=== PATIENT | male | born 1940 | race Caucasian/White ===

== ENCOUNTER → 2018-05-24 | Outpatient (CLI) | payer MEDICARE ==
--- NOTE | 2018-05-24 20:27 | CONS ---
CONSULTATION DATE OF SERVICE: 05/24/2018. 77-year-old gentleman who has been [facility]uated [facility] for obstructive sleep apnea-hypopnea syndrome. Last time, the patient was seen by me about 3-1/2 years ago. He continued to use his CPAP equipment every night for the whole night, but according to his presently he sometimes snores with CPAP. He has episodes of sleep talking. He wakes up on CPAP 2 times at night with dry mouth, heartburn and nocturia. Usually his sleep schedule from 11:30 p.m. until 8 or 8:30 a.m. Usually no problems with falling asleep. No TV in bedroom. On the morning patient wakes up tired, has difficulties to pay attention, falling asleep during the day, has problems with memory, anxiety, sexual dysfunction. [place] Sleepiness Scale although is only 1. PAST MEDICAL HISTORY: Positive for asthma, allergy, acid reflux, hypertension, tremor, hyperlipidemia. PAST SURGICAL HISTORY: He had hernia repair bilaterally, surgery for hydrocele. MEDICATIONS: Alprazolam, carvedilol, Primidone, pravastatin, amlodipine, aspirin, Asmanex, Combivent, famotidine, Loratadine, vitamin D3 and Benefiber. SOCIAL HISTORY: Positive for smoking many years ago. Quit 38 years ago. Alcohol consumption none. FAMILY HISTORY: Hypertension, arthritis, asthma, sinus headache, cancer, pneumoniae, sleep apnea, lung problems, acid reflux, diabetes. REVIEW OF SYSTEMS: Snoring and awakenings from sleep on CPAP machine, feeling tired and sleepiness after awakenings in the morning. PHYSICAL EXAM: 77-year-old gentleman without distress. BP 148/75, HR 72, RR 16, height 5 feet 9 inches, weight 216.2, body mass index 31.4, temperature 97.6, oxygen saturation on room air 96%. Oropharynx: Extremely low position of soft palate. Wide neck 16 inches in circumference. ABDOMEN: Slightly obese. Neck Supple, no JVD. Thyroid is not palpable. LUNGS Clear to percussion and to auscultation. Good air exchange. No wheezing or rhonchi. HEART S1, S2 regular. No murmurs, gallops, or rubs. ABDOMEN: Obese. Soft and nontender. Bowel sounds are present. No organomegaly appreciated. EXTREMITIES: 1+ bilateral ankle edema. TRAINING PROGRAM ASSISTANT Awake, alert, and oriented X3. Cranial nerves 2 to 7 intact. There is no fasciculation or atrophy. noted. No focal deficits observed. I checked the patient's CPAP unit. CPAP pressure is 8 cm of water. Usage is 8 hours per night every night. IMPRESSION: 1. Obstructive sleep apnea-hypopnea syndrome for many years. The patient demonstrated 100% compliance with treatment, but has episodes of snoring during the sleep and awakenings from sleep while on CPAP. 2. Obesity, BMI 31.4. 3. Hypertension. 4. She has mild swelling, 1+ swelling of the legs. 5. Asthma. 6. Allergy. 7. Essential tremor. 8. Hyperlipidemia. PLAN: 1. We will repeat CPAP titration for reevaluation of effective CPAP pressure at the present time. 2. Watching and losing weight. 3. Sleep hygiene with regular time in bed for at least 8 hours. 4. No driving if feeling any sleepiness. Thank you very much for allowing me to participate in management of your patient. Sincerely, Jae Willams MD, PhD, FAASM Diplomat of [employer] Scrub Technician of [facility] [place] MMODL / IJN: [id number] /
== END ==
LOC: SLEEP 15:09
PROVIDERS: ATTEND Internal Medicine
DX: G47.33 Obstructive sleep apnea (adult) (pediatric) (principal); E66.9 Obesity, unspecified; I10 Essential (primary) hypertension; J45.909 Unspecified asthma, uncomplicated; T78.40XA Allergy, unspecified, initial encounter; G25.0 Essential tremor; E78.5 Hyperlipidemia, unspecified; Z99.89 Dependence on other enabling machines and devices; Z68.31 Body mass index [BMI] 31.0-31.9, adult; Z87.891 Personal history of nicotine dependence; Z79.899 Other long term (current) drug therapy; Z79.82 Long term (current) use of aspirin
CPT/HCPCS: 99211

== ENCOUNTER → 2018-08-10 | Outpatient (CLI) | payer MEDICARE ==
[2018-08-10 23:49] LABS: Albumin 4.3 g/dL (3.80-4.90); Albumin/Globulin Ratio 1.95 (1.60-3.17); Globulin 2.2 g/dL (1.6-3.3); Potassium 4.6 mmol/L (3.5-5.5); Total Bilirubin 0.6 mg/dL (0.2-1.2); Total Protein 6.5 g/dL (6.2-8.2)
== END | disposition home or self-care (01) ==
LOC: LABWHC1 17:10
PROVIDERS: ATTEND Nurse Practitioner Adult Health
DX: I10 Essential (primary) hypertension (principal)
CPT/HCPCS: 36415; 80053; 83880

== ENCOUNTER → 2018-08-15 | Outpatient (CLI) | payer MEDICARE ==
--- NOTE | 2018-08-15 16:10 | PN ---
PROGRESS NOTE DATE OF SERVICE: 08/15/2018 This patient is a 77-year-old gentleman who has been followed in [facility] for treatment of obstructive sleep apnea-hypopnea syndrome. Recently patient received his CPAP unit, and today is his first visit with this unit. Patient is able to use equipment every night for the whole night without any problems. [place] Sleepiness Scale today is 0. I checked his CPAP unit. Range of pressure is 7 to 9; 95th percentile of the pressure is 8.3. Usage is 100% of nights for more than 4 hours. Average usage is 8.1 hours. Leak is 20 L/minute, which is borderline with a full-face mask. Apnea-hypopnea index is only 0.3, which is absolutely perfect. MEDICATIONS: 1. Alprazolam. 2. Carvedilol. 3. Primidone. 4. Pravastatin. 5. Amlodipine. 6. Aspirin. 7. Asmanex. 8. Combivent. 9. Famotidine. 10.Loratadine. 11.Vitamin D. PHYSICAL EXAMINATION: GENERAL: A pleasant patient in no distress. VITAL SIGNS: BP 143/71, HR 80, RR 18, weight 216.6, temperature 98.4. HEENT: PERRLA, EOMI. Evaluation of oropharynx showed tongue protrudes midline. Extremely low position of soft palate. Mallampati IV. NECK: Supple. No JVD. Thyroid is not palpable. LUNGS: Clear to percussion and to auscultation. Good air exchange. No wheezing or rhonchi. HEART: S1, S2 regular. No murmurs, gallops or rubs. ABDOMEN: Soft and nontender. Bowel sounds are present. No organomegaly. EXTREMITIES: No clubbing or cyanosis. CARROTER: Awake, alert, and oriented X3. Cranial nerves 2 to 7 intact. There is no fasciculation or atrophy. noted. No focal deficits observed. IMPRESSION: 1. Obstructive sleep apnea-hypopnea syndrome. Patient demonstrated 100% compliance with treatment, benefitting from treatment. 2. Hypertension. 3. Asthma. 4. Allergies. 5. History of essential tremor. 6. Hyperlipidemia. 7. Mild obesity. PLAN: 1. Patient will continue to use CPAP equipment every night for the whole night. 2. Watching weight. 3. Sleep hygiene with regular time in bed for at least 8 hours. 4. No driving if feeling any sleepiness. 5. We will maintain all necessary CPAP prescriptions for mask, tube, filters. 6. Follow-up visit in one year, or earlier if patient has any problems. Thank you very much for allowing me to participate in the management of your patient. Sincerely, Jae Willams MD, PhD, FAASM Diplomat of [employer] [employer] [employer] Business Operations Manager of [facility] [place] MMODL / IJN: [id number] /
== END | disposition home or self-care (01) ==
LOC: SLEEP 14:32
PROVIDERS: ATTEND Internal Medicine
DX: G47.33 Obstructive sleep apnea (adult) (pediatric) (principal); G25.0 Essential tremor; I10 Essential (primary) hypertension; J45.909 Unspecified asthma, uncomplicated; E78.5 Hyperlipidemia, unspecified; E66.9 Obesity, unspecified; T78.40XA Allergy, unspecified, initial encounter; Z79.52 Long term (current) use of systemic steroids; Z79.82 Long term (current) use of aspirin; Z79.899 Other long term (current) drug therapy; Z79.51 Long term (current) use of inhaled steroids; Z99.89 Dependence on other enabling machines and devices

== ENCOUNTER → 2018-09-06 | Outpatient (CLI) | payer MEDICARE ==
--- NOTE | 2018-09-06 14:03 | CT ---
EXAMINATION TYPE: CT chest wo con DATE OF EXAM: 09/06/2018 COMPARISON: Most recent chest x-ray August 17, 2011 HISTORY: multiple lung nodules CT DLP: 805 mGycm. Automated Exposure Control for Dose Reduction was Utilized. TECHNIQUE: CT scan of the thorax is performed without IV contrast. FINDINGS: LUNGS: There is roughly 8 mm focus of groundglass reticulation or opacity lateral right upper lobe ax ial image 16 for reference . A few tiny nodules are identified in the left lower lobe, for reference is 2 to 3 mm nodule axial image 35. There is bibasilar linear atelectasis and/or scarring just above the diaphragms noted. No suspicious greater than 4 mm parenchymal nodules or masses are present. No p leural effusion or pneumothorax is seen. Elevated left hemidiaphragm is redemonstrated. Tracheobronch ial tree is patent. MEDIASTINUM: Lack of IV contrast is noted to limit evaluation for mediastinal and especially hilar ad enopathy. There are no definitive greater than 1 cm hilar or mediastinal lymph nodes. No cardiomega ly or pericardial effusion is seen. Main pulmonary artery is dilated at 3.1 cm on axial image 25. The re is moderate three-vessel coronary artery calcification is seen which is noted marker of underlying coronary artery disease. Somewhat small thyroid gland is noted. OTHER: There is moderate multilevel spurring in the thoracic spine. There is mild haziness in the left mid abdominal mesentery axial image 67 without suspicious adenopat hy. IMPRESSION: 1. No suspicious greater than 4 mm pulmonary nodules or masses. A 8 mm focus of groundglass reticulat ion opacity lateral right upper lobe favors postinflammatory scar. Consider CT follow-up in 6 months time to reassess. No suspicious nodularity is present. 2. Mild left mid abdominal haziness, possible huseyin mesentery. Dedicated abdominal pelvic CT can be p erformed to further evaluate entire abdomen and pelvis.
== END ==
LOC: RADCTMAIN 13:26
PROVIDERS: ATTEND Nurse Practitioner Adult Health
DX: R91.8 Other nonspecific abnormal finding of lung field (principal)
CPT/HCPCS: 71250

== ENCOUNTER → 2019-03-11 | Outpatient (CLI) | payer MEDICARE ==
--- NOTE | 2019-03-11 12:28 | CT ---
EXAMINATION TYPE: CT chest wo con DATE OF EXAM: 03/11/2019 COMPARISON: Chest CT September 06, 2018 HISTORY: Multiple lung nodules CT DLP: 470 mGycm. Automated Exposure Control for Dose Reduction was Utilized. TECHNIQUE: CT scan of the thorax is performed without IV contrast. FINDINGS: LUNGS: Stable 8 mm focus of groundglass opacity lateral right upper lobe axial image 16. Some scatter ed small nodules in the left lower lobe are redemonstrated, for reference stable 2 to 3 mm nodule lef t lower lobe axial image 32. Persistent elevated left hemidiaphragm. No new suspicious greater than 4 mm parenchymal nodules or masses. Persistent mild scarring anteriorly right lung base near diaphragm . No pleural effusion or pneumothorax. MEDIASTINUM: Lack of IV contrast is noted to limit evaluation for mediastinal and especially hilar ad enopathy. There are no definitive greater than 1 cm hilar or mediastinal lymph nodes. No cardiomega ly or pericardial effusion is seen. Moderate to severe three-vessel coronary calcification. Small thy roid gland redemonstrated. OTHER: Some cortical thinning in both kidneys. Moderate multilevel anterior spurring in the mid to lo wer thoracic spine. Slightly less prominent minimal haziness central abdominal mesentery axial image 68. IMPRESSION: Overall stable findings, no new or enlarging nodularity is identified.
== END ==
LOC: RADCTMAIN 11:17
PROVIDERS: ATTEND Nurse Practitioner Adult Health
DX: R91.8 Other nonspecific abnormal finding of lung field (principal)
CPT/HCPCS: 71250

== ENCOUNTER 2019-12-31 12:27 | Emergency (ER) | payer MEDICARE ==
[2019-12-31 12:41] VITALS: RESP 18; TEMP 98.1
[2019-12-31] MEDS ORDERED: LIDOCAINE 1%-EPI 1:100,000 20 ML VIAL SQ STA (13:10)
--- NOTE | 2019-12-31 13:12 | ED ---
General Adult HPI - General Chief complaint: Fall Stated complaint: Fall, head lac Time Seen by Provider: 12/31/19 13:04 Source: patient Mode of arrival: wheelchair Limitations: no limitations - History of Present Illness Initial comments: Dictation was produced using [employer] dictation software. please excuse any grammatical, word or spelling errors. This patient was cared for during a federal and state declared state of emergency secondary to Covid 19 Chief Complaint: 79-year-old male presents after fall and scalp laceration.. History of Present Illness: His 79-year-old male he was at home when he went to stand up. Patient states he lost his balance and started falling backwards. Patient states he struck his left eyebrow on the corner of a chair. Patient had some bleeding. No loss of consciousness. Patient states it happened so fast he hasn't required remember exactly what happened. He has no other pain complaints. Patient put a Band-Aid over the laceration over his left eye. Patient denies any palpitations prior to the fall. He was feeling like his self at his usual baseline of just before the fall. Patient denies any medical problems. The ROS documented in this emergency department record has been reviewed and confirmed by me. Those systems with pertinent positive or negative responses have been documented in the HPI. All other systems are other negative and/or noncontributory. PHYSICAL EXAM: General Impression: Alert and oriented x3, not in acute distress HEENT: 2 cm laceration just above the left medial eyebrow, no active bleeding, extra-ocular movements intact, pupils equal and reactive to light bilaterally, mucous membranes moist. Cardiovascular: Heart regular rate and rhythm Chest: Able to complete full sentences, no retractions, no tachypnea Abdomen: abdomen soft, non-tender, non-distended, no organomegaly Musculoskeletal: Pulses present and equal in all extremities, no peripheral edema Motor: no focal deficits noted Neurological: CN II-XII grossly intact, no focal motor or sensory deficits noted Skin: Intact with no visualized rashes Psych: Normal affect and mood ED course: 79 yo male presents with forehead laceration. It is unclear patient experienced a mechanical fall versus syncopal fall. Vital signs upon arrival are within acceptable limits. Laboratory evaluation obtained. CBC, coag panel, metabolic panel is unremarkable. Lacerations were repaired at bedside. Computed tomography scan of the head and C-spine shows no intracranial or cervical spine injuries. Orthostatic vital signs are unremarkable. Patient feels well. He is an Caleb without complications. Patient given discharge instructions. He still 5 days to have suture removal. Patient told that if he has another episode of syncope today to return to the emergency department. EKG interpretation: Ventricular rate 72, normal sinus rhythm, right bundle branch block,. 180, QRS 146, QTC 468. No CA prolongation, no QTC prolongation, no ST or T-wave changes noted. No EKG for comparison. Overall, this EKG is unremarkable - Related Data Allergies Allergy/AdvReac Type Severity Reaction Status Date / Time No Known Allergies Allergy Verified 12/31/19 12:34 Review of Systems ROS Statement: Those systems with pertinent positive or pertinent negative responses have been documented in the HPI. ROS Other: All systems not noted in ROS Statement are negative. Past Medical History Past Medical History: No Reported History History of Any Multi-Drug Resistant Organisms: None Reported Past Surgical History: No Surgical Hx Reported Past Psychological History: No Psychological Hx Reported Smoking Status: Never smoker Past Alcohol Use History: None Reported Past Drug Use History: None Reported General Exam Limitations: no limitations Course Vital Signs 12/31/19 12/31/19 12:35 13:57 Temperature 98.1 F Pulse Rate 71 Pulse Rate [ 71 Sitting] Pulse Rate [ 74 Standing] Pulse Rate [ 74 Supine] Respiratory 18 Rate Blood Pressure 147/74 Blood Pressure 148/78 [Sitting] Blood Pressure 123/67 [Standing] Blood Pressure 153/74 [Supine] O2 Sat by Pulse 95 Oximetry Procedures - Laceration Laceration #1 Consent Obtained: verbal consent Indication: laceration Site: scalp Description: linear Depth: simple, single layer Anesthetic Used: lidocaine 1%, with epi Anesthesia Technique: local infiltration Pre-repair: wound explored Type of Sutures: nylon Size of Sutures: 6-0 Technique: simple, interrupted Patient Tolerated Procedure: well Medical Decision Making - Lab Data Result diagrams: 12/31/19 13:21 12/31/19 13:21 Lab Results 12/31/19 12/31/19 12/31/19 Range/Units 13:21 13:21 13:21 WBC 4.3 (3.8-10.6) k/uL RBC 4.06 L (4.30-5.90) m/uL Hgb 12.5 L (13.0-17.5) gm/dL Hct 38.1 L (39.0-53.0) % MCV 94.0 (80.0-100.0) fL MCH 30.9 (25.0-35.0) pg MCHC 32.8 (31.0-37.0) g/dL RDW 13.2 (11.5-15.5) % Plt Count 235 (150-450) k/uL Neutrophils % 65 % Lymphocytes % 24 % Monocytes % 8 % Eosinophils % 1 % Basophils % 1 % Neutrophils # 2.8 (1.3-7.7) k/uL Lymphocytes # 1.0 (1.0-4.8) k/uL Monocytes # 0.3 (0-1.0) k/uL Eosinophils # 0.0 (0-0.7) k/uL Basophils # 0.0 (0-0.2) k/uL PT 10.2 (9.0-12.0) sec INR 1.0 (<1.2) APTT 22.9 (22.0-30.0) sec Sodium 137 (137-145) mmol/L Potassium 4.0 (3.5-5.1) mmol/L Chloride 100 (98-107) mmol/L Carbon Dioxide 30 (22-30) mmol/L Anion Gap 7 mmol/L BUN 10 (9-20) mg/dL Creatinine 1.13 (0.66-1.25) mg/dL Est GFR (CKD-EPI)AfAm 71 (>60 ml/min/1.73 sqM) Est GFR (CKD-EPI)NonAf 61 (>60 ml/min/1.73 sqM) Glucose 103 H (74-99) mg/dL Calcium 9.0 (8.4-10.2) mg/dL Magnesium 2.2 (1.6-2.3) mg/dL Total Bilirubin 0.9 (0.2-1.3) mg/dL AST 22 (17-59) U/L ALT 19 (4-49) U/L Alkaline Phosphatase 87 (38-126) U/L Total Protein 6.6 (6.3-8.2) g/dL Albumin 4.0 (3.5-5.0) g/dL Disposition Clinical Impression: Scalp laceration Disposition: HOME SELF-CARE Condition: Good Instructions (If sedation given, give patient instructions): Fall Prevention for Older Adults (ED) Additional Instructions: Suture removal in 3-5 days. He can either return to the emergency department or follow-up with her primary care physician Is patient prescribed a controlled substance at d/c from ED?: No Referrals: Ольга Abdi MD [Primary Care Provider] - 1-2 days Time of Disposition: 14:02
[2019-12-31] MEDS ORDERED: DIPH,PERTUS(ACELL)TETVAC-LF 0.5 ML VIAL IM ONE (13:23)
[2019-12-31 13:37] LABS: Basophils % (A) 1 %; Eosinophils % (A) 1 %; HCT 38.1 % (39.0-53.0); HGB 12.5 gm/dL (13.0-17.5); Lymphocytes % (A) 24 %; MCH 30.9 pg (25.0-35.0); MCHC 32.8 g/dL (31.0-37.0); Mean Platelet Volume 8.2; Monocytes # (A) 0.3 k/uL (0-1.0); Monocytes % (A) 8 %; Neutrophils # (A) 2.8 k/uL (1.3-7.7); Neutrophils % (A) 65 %; Platelet Count 235 k/uL (150-450); RBC 4.06 m/uL (4.30-5.90); RDW 13.2 % (11.5-15.5); WBC 4.3 k/uL (3.8-10.6)
[2019-12-31 13:45] LABS: Partial Thromboplastin Time 22.9 sec (22.0-30.0); Prothrombin Time 10.2 sec (9.0-12.0)
--- NOTE | 2019-12-31 13:47 | CT ---
EXAMINATION TYPE: CT brain jeremiah bowles DATE OF EXAM: 12/31/2019 COMPARISON: None HISTORY: 79-year-old male with pain after Fall, struck face just above Lt eye on a chair CT DLP: 1418.5 mGycm Automated exposure control for dose reduction was used. Technique: Examination of the head was done in axial plane without intravenous contrast. Coronal and sagittal reconstructions performed. CT of the cervical spine was obtained in axial plane without intravenous injection of contrast mater ial. Coronal and sagittal reformatted images were obtained from the axial views for evaluation of f ractures, spinal alignment and canal. FINDINGS: Head: There is no evidence of acute intracranial hemorrhage, acute ischemic changes, mass, mass-effect, or extra-axial fluid collection. There is no effacement of cerebral sulci or basal subarachnoid cister ns. There is no hydrocephalus. There is no midline shift. Ribera-white matter distinction is preserv ed. Left paramedian anterior scalp laceration. No underlying calvarial fracture. Rightward nasal septal d eviation. Lobular mucosal thickening floors of the maxillary sinuses. Otherwise, paranasal sinuses an d mastoid air cells appear clear. Orbits and globes appear intact. Mild generalized supratentorial volume loss. Cervical spine: No craniocervical junction abnormality, predental space widening, or prevertebral soft tissue swellin g. Moderate to advanced disc/endplate degenerative change at C5-C7 levels. Disc osteophyte complexes are present. Suspect mild spinal canal stenoses such as at C3-C4 and C5-C6. Multilevel facet and uncovertebral joint arthropathy. Foraminal moderate neural foraminal stenoses pa rticularly at C3-C4 and C5-C6. Preserved alignment of the cervical spine. No acute fracture seen. Sagittal and coronal reformatted images confirm above findings. COMBINED IMPRESSION: 1. Left paramedian anterior scalp laceration. No underlying skull fracture. There is mild generalized atrophy but no acute intracranial abnormality seen. 2. No acute fracture or malalignment of the cervical spine. Moderate spondylotic change.
[2019-12-31 13:49] LABS: Magnesium 2.2 mg/dL (1.6-2.3); Total Bilirubin 0.9 mg/dL (0.2-1.3); Total Protein 6.6 g/dL (6.3-8.2)
[2019-12-31 13:59] VITALS: BP 153/74; PULSE 74
== END 2019-12-31 14:25 | disposition home or self-care (01) ==
LOC: EC 12:27
DX: S01.01XA Laceration without foreign body of scalp, initial encounter (principal); W01.190A Fall on same level from slipping, tripping and stumbling with subsequent striking against furniture, initial encounter; Y92.009 Unspecified place in unspecified non-institutional (private) residence as the place of occurrence of the external cause; Z23 Encounter for immunization
CPT/HCPCS: 12001; 36415; 70450; 72125; 80053; 83735; 85025; 85610; 85730; 90471; 90715; 93005; 99284

== ENCOUNTER 2020-07-15 10:16 | Emergency (ER) | payer MEDICARE ==
[2020-07-15 10:23] VITALS: RESP 18
[2020-07-15 10:32] LABS: Glucose,Whole Blood 112 mg/dL (75-99)
[2020-07-15] MEDS ORDERED: SODIUM CHLORIDE 0.9% 500 ML 500 ML IV ONE (10:36)
[2020-07-15 10:51] LABS: Basophils # (A) 0.1 k/uL (0-0.2); Basophils % (A) 1 %; Eosinophils % (A) 1 %; HCT 35.6 % (39.0-53.0); HGB 12.6 gm/dL (13.0-17.5); Lymphocytes % (A) 21 %; MCH 32.6 pg (25.0-35.0); MCHC 35.4 g/dL (31.0-37.0); MCV 92.3 fL (80.0-100.0); Mean Platelet Volume 8.1; Monocytes # (A) 0.5 k/uL (0-1.0); Monocytes % (A) 10 %; Neutrophils % (A) 65 %; Platelet Count 236 k/uL (150-450); RBC 3.86 m/uL (4.30-5.90); RDW 13.1 % (11.5-15.5); WBC 4.6 k/uL (3.8-10.6)
--- NOTE | 2020-07-15 11:01 | XR ---
EXAMINATION TYPE: XR chest 1V portable DATE OF EXAM: 07/15/2020 COMPARISON: Chest x-ray 08/17/2011 HISTORY: Altered mental status TECHNIQUE: Single frontal view of the chest is obtained. FINDINGS: There is no focal air space opacity, pleural effusion, or pneumothorax seen. The cardiac silhouette size is within normal limits. There are overlying cardiac leads. The osseous structures a re intact. IMPRESSION: No acute process.
[2020-07-15 11:03] LABS: Partial Thromboplastin Time 22.2 sec (22.0-30.0); Prothrombin Time 10.8 sec (9.0-12.0)
[2020-07-15 11:03] LABS: Appearance,Urine Clear (Clear); Bilirubin,Urine Negative (Negative); Blood,Urine Negative (Negative); Color,Urine Light Yellow; Glucose,Urine (UA) Negative (Negative); Ketones,Urine Negative (Negative); Leukocyte Esterase,Urine Negative (Negative); Nitrite,Urine Negative (Negative); PH, Urine 6.5 (5.0-8.0); Protein,Urine Negative (Negative); Specific Gravity,Urine 1.005 (1.001-1.035); Urobilinogen,Urine <2.0 mg/dL (<2.0)
--- NOTE | 2020-07-15 11:06 | ED ---
General Adult HPI - General Chief complaint: Altered Mental Status Stated complaint: AMS Time Seen by Provider: 07/15/20 10:18 Source: patient Mode of arrival: ambulatory Limitations: no limitations - History of Present Illness Initial comments: 79-year-old male without any significant past medical history presents to the emergency department for confusion. Patient reports last night he took an unknown pill which he thought was his blood pressure pill. He then reports he fell to the couch but does not remember falling asleep. Woke up at 2 AM. He feels slightly confused. States this has been ongoing for quite some time. Patient is a and O 2 however does not know the year. Patient denies any specific complaints otherwise. Patient reports he lives at home with his . His is in the hospital at this time.Patient has no other complaints at this time including shortness of breath, chest pain, abdominal pain, nausea or vomiting, headache, or visual changes. - Related Data Home Medications Medication Instructions Recorded Confirmed ALPRAZolam [Xanax] 0.5 mg PO TID PRN 07/15/20 07/15/20 Carvedilol [Coreg] 12.5 mg PO TID 07/15/20 07/15/20 amLODIPine [Norvasc] 5 mg PO DAILY 07/15/20 07/15/20 Allergies Allergy/AdvReac Type Severity Reaction Status Date / Time No Known Allergies Allergy Verified 07/15/20 11:23 Review of Systems ROS Statement: Those systems with pertinent positive or pertinent negative responses have been documented in the HPI. ROS Other: All systems not noted in ROS Statement are negative. Past Medical History Past Medical History: No Reported History History of Any Multi-Drug Resistant Organisms: None Reported Past Surgical History: No Surgical Hx Reported Past Psychological History: No Psychological Hx Reported Smoking Status: Former smoker Past Alcohol Use History: None Reported Past Drug Use History: None Reported General Exam Limitations: no limitations General appearance: alert, in no apparent distress Head exam: Present: atraumatic Eye exam: Present: normal appearance, PERRL, EOMI ENT exam: Present: normal exam, mucous membranes moist Neck exam: Present: normal inspection, full ROM. Absent: tenderness Respiratory exam: Present: normal lung sounds bilaterally. Absent: respiratory distress Cardiovascular Exam: Present: regular rate, normal rhythm, normal heart sounds GI/Abdominal exam: Present: soft, normal bowel sounds. Absent: distended, tenderness, guarding, rebound, rigid Neurological exam: Present: alert. Absent: oriented X3 (Oriented to person and place however year is unknown) Psychiatric exam: Present: normal affect, normal mood Course Vital Signs 07/15/20 07/15/20 10:19 11:23 Temperature 98 F Pulse Rate 71 78 Respiratory 18 18 Rate Blood Pressure 124/82 117/70 O2 Sat by Pulse 98 95 Oximetry EKG Findings - EKG Comments: EKG Findings:: Normal sinus rhythm, right bundle branch block, ventricular rate 69, LA interval 150, qtc 471 Medical Decision Making - Medical Decision Making Vitals are stable. I she is alert and oriented 2, does not know the year. He is well appearing, in no distress. CBC CMP unremarkable. Urinalysis is negative for infection. Chest x-ray negative for infection. Patient does have benzodiazepines in his system and he is prescribed Xanax so this is consistent. However he has barbiturates as well. He is not prescribed barbiturates. It is likely he accidentally took one of his 's pills yesterday because he states he tried to compare the 2 as he was running low and took one of hers. CT brain showed age-related atrophy without acute intracranial process. I spoke with patient's stepdaughter Tammy, she reports she has been chronically confused for quite some time. They're actually scheduled to put him in an assisted living facility tomorrow. She is agreeable to picking him up from the emergency room and taking him home for the evening. They will take him to the assisted living facility tomorrow. Patient is agreeable to this plan as well. - Lab Data Result diagrams: 07/15/20 10:39 07/15/20 10:39 Lab Results 07/15/20 07/15/20 07/15/20 Range/Units 10:30 10:39 10:39 WBC 4.6 (3.8-10.6) k/uL RBC 3.86 L (4.30-5.90) m/uL Hgb 12.6 L (13.0-17.5) gm/dL Hct 35.6 L (39.0-53.0) % MCV 92.3 (80.0-100.0) fL MCH 32.6 (25.0-35.0) pg MCHC 35.4 (31.0-37.0) g/dL RDW 13.1 (11.5-15.5) % Plt Count 236 (150-450) k/uL MPV 8.1 Neutrophils % 65 % Lymphocytes % 21 % Monocytes % 10 % Eosinophils % 1 % Basophils % 1 % Neutrophils # 3.0 (1.3-7.7) k/uL Lymphocytes # 1.0 (1.0-4.8) k/uL Monocytes # 0.5 (0-1.0) k/uL Eosinophils # 0.0 (0-0.7) k/uL Basophils # 0.1 (0-0.2) k/uL PT 10.8 (9.0-12.0) sec INR 1.0 (<1.2) APTT 22.2 (22.0-30.0) sec Sodium (137-145) mmol/L Potassium (3.5-5.1) mmol/L Chloride (98-107) mmol/L Carbon Dioxide (22-30) mmol/L Anion Gap mmol/L BUN (9-20) mg/dL Creatinine (0.66-1.25) mg/dL Est GFR (CKD-EPI)AfAm (>60 ml/min/1.73 sqM) Est GFR (CKD-EPI)NonAf (>60 ml/min/1.73 sqM) Glucose (74-99) mg/dL POC Glucose (mg/dL) 112 H (75-99) mg/dL POC Glu Vice President Client Services Shaye Shaffer Calcium (8.4-10.2) mg/dL Total Bilirubin (0.2-1.3) mg/dL AST (17-59) U/L ALT (4-49) U/L Alkaline Phosphatase (38-126) U/L Troponin I (0.000-0.034) ng/mL Total Protein (6.3-8.2) g/dL Albumin (3.5-5.0) g/dL Urine Color Urine Appearance (Clear) Urine pH (5.0-8.0) Ur Specific [place] (1.001-1.035) Urine Protein (Negative) Urine Glucose (UA) (Negative) Urine Ketones (Negative) Urine Blood (Negative) Urine Nitrite (Negative) Urine Bilirubin (Negative) Urine Urobilinogen (<2.0) mg/dL Ur Leukocyte Esterase (Negative) Urine Opiates Screen (NotDetected) Ur Oxycodone Screen (NotDetected) Urine Methadone Screen (NotDetected) Ur Propoxyphene Screen (NotDetected) Ur Barbiturates Screen (NotDetected) U Tricyclic Antidepress (NotDetected) Ur Phencyclidine Scrn (NotDetected) Ur Amphetamines Screen (NotDetected) U Methamphetamines Scrn (NotDetected) U Benzodiazepines Scrn (NotDetected) Urine Cocaine Screen (NotDetected) U Marijuana (THC) Screen (NotDetected) 07/15/20 07/15/20 07/15/20 Range/Units 10:39 10:39 10:56 WBC (3.8-10.6) k/uL RBC (4.30-5.90) m/uL Hgb (13.0-17.5) gm/dL Hct (39.0-53.0) % MCV (80.0-100.0) fL MCH (25.0-35.0) pg MCHC (31.0-37.0) g/dL RDW (11.5-15.5) % Plt Count (150-450) k/uL MPV Neutrophils % % Lymphocytes % % Monocytes % % Eosinophils % % Basophils % % Neutrophils # (1.3-7.7) k/uL Lymphocytes # (1.0-4.8) k/uL Monocytes # (0-1.0) k/uL Eosinophils # (0-0.7) k/uL Basophils # (0-0.2) k/uL PT (9.0-12.0) sec INR (<1.2) APTT (22.0-30.0) sec Sodium 134 L (137-145) mmol/L Potassium 3.5 (3.5-5.1) mmol/L Chloride 100 (98-107) mmol/L Carbon Dioxide 29 (22-30) mmol/L Anion Gap 5 mmol/L BUN 11 (9-20) mg/dL Creatinine 1.29 H (0.66-1.25) mg/dL Est GFR (CKD-EPI)AfAm 60 (>60 ml/min/1.73 sqM) Est GFR (CKD-EPI)NonAf 52 (>60 ml/min/1.73 sqM) Glucose 109 H (74-99) mg/dL POC Glucose (mg/dL) (75-99) mg/dL POC Glu Vice President Client Services ID Calcium 9.3 (8.4-10.2) mg/dL Total Bilirubin 0.8 (0.2-1.3) mg/dL AST 23 (17-59) U/L ALT 19 (4-49) U/L Alkaline Phosphatase 67 (38-126) U/L Troponin I <0.012 (0.000-0.034) ng/mL Total Protein 6.5 (6.3-8.2) g/dL Albumin 3.6 (3.5-5.0) g/dL Urine Color Light Yellow Urine Appearance Clear (Clear) Urine pH 6.5 (5.0-8.0) Ur Specific [place] 1.005 (1.001-1.035) Urine Protein Negative (Negative) Urine Glucose (UA) Negative (Negative) Urine Ketones Negative (Negative) Urine Blood Negative (Negative) Urine Nitrite Negative (Negative) Urine Bilirubin Negative (Negative) Urine Urobilinogen <2.0 (<2.0) mg/dL Ur Leukocyte Esterase Negative (Negative) Urine Opiates Screen Not Detected (NotDetected) Ur Oxycodone Screen Not Detected (NotDetected) Urine Methadone Screen Not Detected (NotDetected) Ur Propoxyphene Screen Not Detected (NotDetected) Ur Barbiturates Screen Detected H (NotDetected) U Tricyclic Antidepress Not Detected (NotDetected) Ur Phencyclidine Scrn Not Detected (NotDetected) Ur Amphetamines Screen Not Detected (NotDetected) U Methamphetamines Scrn Not Detected (NotDetected) U Benzodiazepines Scrn Detected H (NotDetected) Urine Cocaine Screen Not Detected (NotDetected) U Marijuana (THC) Screen Not Detected (NotDetected) Disposition Clinical Impression: Chronic confusion, Medication administered in error Disposition: HOME SELF-CARE Condition: Good Instructions (If sedation given, give patient instructions): Altered Mental Status (ED) Additional Instructions: Please follow-up with patient's primary care provider in one to 2 days. Return to the emergency room for any worsening symptoms. Is patient prescribed a controlled substance at d/c from ED?: No Referrals: Jose Álvarez MD [Primary Care Provider] - 1-2 days Time of Disposition: 12:51
[2020-07-15 11:08] LABS: Albumin 3.6 g/dL (3.5-5.0); Calcium 9.3 mg/dL (8.4-10.2); Potassium 3.5 mmol/L (3.5-5.1); Total Bilirubin 0.8 mg/dL (0.2-1.3); Total Protein 6.5 g/dL (6.3-8.2)
[2020-07-15 11:17] LABS: Amphetamine Screen,Urine Not Detected (NotDetected); Barbiturate Screen,Urine Detected (NotDetected); Benzodiazepines Screen,Urine Detected (NotDetected); Cocaine Screen,Urine Not Detected (NotDetected); Methadone Screen, Urine Not Detected (NotDetected); Opiate Screen,Urine Not Detected (NotDetected); Phencyclidine Screen,Urine Not Detected (NotDetected); Tricyclic Antidepressant,Urine Not Detected (NotDetected); Urn Cannabinoid Scrn Not Detected (NotDetected)
[2020-07-15 11:18] LABS: Oxycodone Screen, Urine Not Detected (NotDetected)
--- NOTE | 2020-07-15 12:26 | CT ---
EXAMINATION TYPE: CT brain wo con DATE OF EXAM: 07/15/2020 COMPARISON: 12/31/2019 INDICATION: Altered Mental Status DLP: 1143.4 mGycm, Automated exposure control for dose reduction was used. CONTRAST: None CT of the brain is performed utilizing 3 mm thick sections through the posterior fossa and 3 mm thick sections through the remaining calvarium. Study is performed within 24 hours of arrival to the hosp ital. No abnormal hyperdensity is present to suggest an acute intracranial hemorrhage. No mass lesion is evident. No acute infarcts are evident. Ventricles and sulci are prominent for the patient age. Paranasal sinuses and mastoid air cells within the [id number] are clear. IMPRESSIONS: 1. Age-related atrophy. 2. No acute intracranial process.
[2020-07-15 14:06] VITALS: BP 155/81; PULSE 76; TEMP 98.3
== END 2020-07-15 14:07 | disposition home or self-care (01) ==
LOC: EC 10:16
DX: R41.0 Disorientation, unspecified (principal); T42.4X5A Adverse effect of benzodiazepines, initial encounter; G31.1 Senile degeneration of brain, not elsewhere classified; Z87.891 Personal history of nicotine dependence
CPT/HCPCS: 36415; 70450; 71045; 80053; 80306; 81003; 84484; 85025; 85610; 85730; 93005; 96360; 99285

== ENCOUNTER 2021-10-03 09:22 | Observation (INO) | payer MEDICARE ==
[2021-10-03 09:33] LABS: Glucose,Whole Blood 104 mg/dL (75-99)
[2021-10-03] MEDS ORDERED: SODIUM CHLORIDE 0.9% 1,000 ML IV STA (10:10)
[2021-10-03 10:25] LABS: Basophils % (A) 0 %; Eosinophils # (A) 0.2 k/uL (0-0.7); Eosinophils % (A) 2 %; HCT 23.4 % (39.0-53.0); HGB 7.7 gm/dL (13.0-17.5); Lymphocytes # (A) 0.9 k/uL (1.0-4.8); Lymphocytes % (A) 8 %; MCH 31.4 pg (25.0-35.0); MCHC 32.8 g/dL (31.0-37.0); MCV 95.6 fL (80.0-100.0); Mean Platelet Volume 7.8; Monocytes # (A) 0.7 k/uL (0-1.0); Monocytes % (A) 6 %; Neutrophils # (A) 8.8 k/uL (1.3-7.7); Neutrophils % (A) 82 %; Platelet Count 329 k/uL (150-450); RBC 2.45 m/uL (4.30-5.90); RDW 14.5 % (11.5-15.5); WBC 10.7 k/uL (3.8-10.6)
[2021-10-03 10:36] LABS: Albumin 2.5 g/dL (3.5-5.0); Calcium 7.9 mg/dL (8.4-10.2); Magnesium 1.9 mg/dL (1.6-2.3); Potassium 3.8 mmol/L (3.5-5.1); Total Bilirubin 0.5 mg/dL (0.2-1.3); Total Protein 5.3 g/dL (6.3-8.2)
[2021-10-03 10:47] LABS: INR 1.1 (<1.2); Partial Thromboplastin Time 22.3 sec (22.0-30.0); Prothrombin Time 11.4 sec (9.0-12.0)
--- NOTE | 2021-10-03 11:00 | XR ---
EXAMINATION TYPE: XR chest 2V DATE OF EXAM: 10/03/2021 COMPARISON: Chest x-ray September 23, 2021 HISTORY: Syncope and weakness. TECHNIQUE: Frontal and lateral views of the chest are obtained. FINDINGS: Persistent elevated left hemidiaphragm. Persistent wedge-shaped opacification peripheral r ight upper lobe posteriorly. Left lung remains clear. Stable mild cardiomegaly. The osseous structu res are intact. IMPRESSION: Mild cardiomegaly with persistent right upper lung masslike consolidation and/or atelect asis. No new infiltrates seen.
--- NOTE | 2021-10-03 11:02 | CT ---
EXAMINATION TYPE: CT brain wo con DATE OF EXAM: 10/03/2021 HISTORY: Syncope CT DLP: 1072.4 mGycm. Automated Exposure Control for Dose Reduction was Utilized. TECHNIQUE: CT scan of the head is performed without contrast. COMPARISON: CT brain September 23, 2021. FINDINGS: There is no acute intracranial hemorrhage or midline shift identified. There is mild to m oderate diffuse ventricular and sulcal prominence consistent with diffuse cerebral atrophy greatest o annabella the bilateral frontal and temporal lobes redemonstrated. There is mild low-attenuation in the pe riventricular white matter consistent with chronic small vessel ischemic change. The globes are inta ct and the visualized sinuses are clear. IMPRESSION: No acute intracranial hemorrhage or midline shift. There is mild to moderate diffuse ce rebral atrophy and mild chronic small vessel ischemic change redemonstrated. No significant change f rom prior.
[2021-10-03] MEDS ORDERED: NALOXONE 0.4 MG/ML 1 ML VIAL IV PRN (11:36)
--- NOTE | 2021-10-03 12:33 | ED ---
General Adult HPI - General Chief complaint: Syncope Stated complaint: Syncope Time Seen by Provider: 10/03/21 09:58 Source: patient, EMS, RN notes reviewed, old records reviewed Mode of arrival: EMS - History of Present Illness Initial comments: Patient is an 80-year-old male with past medical history remarkable for cancer, recently admitted for blood loss anemia secondary to rectal bleeding presents with Department following a single episode at home. Patient was found in his wheelchair, initially EMS was called for listhesis. However he was unresponsive and syncopized. He quickly recovered when he was laid flat. He currently denies any acute complaints. Denies hitting his head. Denies chest pain, shortness breath, abdominal pain, nausea, vomiting. States he was waiting to use the restroom when he "fell asleep". Denies any worsening GI bleeding. His no other acute complaints at this time. He was seen by surgery as well who completed scoping. They're attempting to get the patient into hospice. - Related Data Home Medications Medication Instructions Recorded Confirmed Carvedilol [Coreg] 12.5 mg PO DAILY@0800 07/15/20 10/03/21 ALPRAZolam [Xanax] 0.25 mg PO BID@0800,2300 09/23/21 10/03/21 Budesonide/Formoterol Fumarate 2 puff INHALATION RT-BID@0830,2030 09/23/21 10/03/21 [Symbicort 160-4.5 Mcg Inhaler] Carvedilol [Coreg] 25 mg PO HS@2200 09/23/21 10/03/21 Famotidine 20 mg PO BID@0830,1600 09/23/21 10/03/21 Primidone [Mysoline] 50 mg PO TID@0800,1400,2200 09/23/21 10/03/21 amLODIPine BESYLATE/BENAZEPRIL 1 cap PO DAILY@1600 09/23/21 10/03/21 [Lotrel 5-10 MG] Allergies Allergy/AdvReac Type Severity Reaction Status Date / Time No Known Allergies Allergy Verified 10/03/21 13:29 Review of Systems ROS Statement: Those systems with pertinent positive or pertinent negative responses have been documented in the HPI. Review of Systems: CONST: Denies fever EYES: Denies blurry vision ENT: Denies nasal congestion C/V: Denies Chest pain RESP: Denies shortness of breath GI: Denies abdominal pain : Denies dysuria SKIN: Denies rash. MSK: Denies joint pain. NEURO: Denies headache ROS Other: All systems not noted in ROS Statement are negative. Past Medical History Past Medical History: Cancer, Hypertension, Syncope Additional Past Medical History / Comment(s): Lung cancer, skin cancer and colon cancer, History of Any Multi-Drug Resistant Organisms: None Reported Past Surgical History: No Surgical Hx Reported Past Psychological History: No Psychological Hx Reported Smoking Status: Former smoker Past Alcohol Use History: None Reported Past Drug Use History: None Reported General Exam - General Exam Comments Initial Comments: General: Appears in no acute distress. HEAD: Normal with no signs of head trauma. EYES: PERRLA, EOMI, conjunctiva normal, no discharge. ENT: Hearing grossly intact, normal oropharynx. RESPIRATORY: Clear breath sounds bilaterally. No wheezes, rales, or rhonchi. C/V: Regular rate and rhythm. S1 and S2 auscultated, no edema, peripheral pulses 2+ and intact throughout ABD: Abd is soft, nontender, nondistended. Patient is covered in dark stool. EXT: Normal range of motion, no obvious deformity SKIN: No rashes or lesions observed on exposed skin. NEURO: Alert and oriented 4. No focal sensory strength deficits. NIH is 0. GCS 15. Course Vital Signs 10/03/21 10/03/21 10/03/21 09:22 10:00 11:41 Temperature 98.0 F Pulse Rate 72 72 72 Respiratory 18 20 16 Rate Blood Pressure 105/51 105/51 113/52 O2 Sat by Pulse 98 97 96 Oximetry Medical Decision Making - Medical Decision Making Based on the patient's presentation and physical exam, I'm concerned for symptomatic anemia, likely secondary to bleeding in his stool. It appears he had a syncopal episode. We will obtain a cardiac workup in addition to basic labs. He will begin fluid bolus. He was in agreement this plan. Chest x-ray revealed no acute cardiopulmonary process. Brain CT revealed no acute intracranial injury or process. There are chronic processes. EKG shows no signs of acute ischemia. Laboratory studies are remarkable for a normocytic anemia with hemoglobin 7.7, previously it was a 8.7. Patient is a mild AK I with an elevated creatinine of 1.34. Troponin is negative. Stool occult blood is positive. Urinalysis still pending. Reevaluation come patient is feeling improved. I did discuss with him that due to the recent drop in hemoglobin 1 unit since prior discharge a few days ago, I would like to admit him for hemoglobin monitoring. He was in agreement this plan. I did speak with the patient's PCP, Dr. Alfonso who accepted the patient. He requested I consult Dr. schaefer of surgery who evaluated the patient previously which I did and spoke with him over the phone. Dr. Arellano is accepted the cons ult. Multiple CBC rechecks will be completed. - Lab Data Result diagrams: 10/03/21 10:13 10/03/21 10:13 Lab Results 10/03/21 10/03/21 10/03/21 Range/Units 09:28 10:13 10:13 WBC 10.7 H (3.8-10.6) k/uL RBC 2.45 L (4.30-5.90) m/uL Hgb 7.7 L (13.0-17.5) gm/dL Hct 23.4 L (39.0-53.0) % MCV 95.6 (80.0-100.0) fL MCH 31.4 (25.0-35.0) pg MCHC 32.8 (31.0-37.0) g/dL RDW 14.5 (11.5-15.5) % Plt Count 329 (150-450) k/uL MPV 7.8 Neutrophils % 82 % Lymphocytes % 8 % Monocytes % 6 % Eosinophils % 2 % Basophils % 0 % Neutrophils # 8.8 H (1.3-7.7) k/uL Lymphocytes # 0.9 L (1.0-4.8) k/uL Monocytes # 0.7 (0-1.0) k/uL Eosinophils # 0.2 (0-0.7) k/uL Basophils # 0.0 (0-0.2) k/uL PT 11.4 (9.0-12.0) sec INR 1.1 (<1.2) APTT 22.3 (22.0-30.0) sec Sodium (137-145) mmol/L Potassium (3.5-5.1) mmol/L Chloride (98-107) mmol/L Carbon Dioxide (22-30) mmol/L Anion Gap mmol/L BUN (9-20) mg/dL Creatinine (0.66-1.25) mg/dL Est GFR (CKD-EPI)AfAm (>60 ml/min/1.73 sqM) Est GFR (CKD-EPI)NonAf (>60 ml/min/1.73 sqM) Glucose (74-99) mg/dL POC Glucose (mg/dL) 104 H (75-99) mg/dL POC Glu Decorator Inspector ID Barbi Smyth Calcium (8.4-10.2) mg/dL Magnesium (1.6-2.3) mg/dL Total Bilirubin (0.2-1.3) mg/dL AST (17-59) U/L ALT (4-49) U/L Alkaline Phosphatase (38-126) U/L Troponin I (0.000-0.034) ng/mL Total Protein (6.3-8.2) g/dL Albumin (3.5-5.0) g/dL Stool Occult Blood (Negative) 10/03/21 10/03/21 10/03/21 Range/Units 10:13 10:13 10:26 WBC (3.8-10.6) k/uL RBC (4.30-5.90) m/uL Hgb (13.0-17.5) gm/dL Hct (39.0-53.0) % MCV (80.0-100.0) fL MCH (25.0-35.0) pg MCHC (31.0-37.0) g/dL RDW (11.5-15.5) % Plt Count (150-450) k/uL MPV Neutrophils % % Lymphocytes % % Monocytes % % Eosinophils % % Basophils % % Neutrophils # (1.3-7.7) k/uL Lymphocytes # (1.0-4.8) k/uL Monocytes # (0-1.0) k/uL Eosinophils # (0-0.7) k/uL Basophils # (0-0.2) k/uL PT (9.0-12.0) sec INR (<1.2) APTT (22.0-30.0) sec Sodium 134 L (137-145) mmol/L Potassium 3.8 (3.5-5.1) mmol/L Chloride 103 (98-107) mmol/L Carbon Dioxide 25 (22-30) mmol/L Anion Gap 6 mmol/L BUN 13 (9-20) mg/dL Creatinine 1.34 H (0.66-1.25) mg/dL Est GFR (CKD-EPI)AfAm 57 (>60 ml/min/1.73 sqM) Est GFR (CKD-EPI)NonAf 50 (>60 ml/min/1.73 sqM) Glucose 133 H (74-99) mg/dL POC Glucose (mg/dL) (75-99) mg/dL POC Glu Decorator Inspector ID Calcium 7.9 L (8.4-10.2) mg/dL Magnesium 1.9 (1.6-2.3) mg/dL Total Bilirubin 0.5 (0.2-1.3) mg/dL AST 23 (17-59) U/L ALT 29 (4-49) U/L Alkaline Phosphatase 64 (38-126) U/L Troponin I <0.012 (0.000-0.034) ng/mL Total Protein 5.3 L (6.3-8.2) g/dL Albumin 2.5 L (3.5-5.0) g/dL Stool Occult Blood Positive (Negative) - EKG Data -: EKG Interpreted by Me EKG Comments: 12-lead Electrocardiogram Interpretation Note EKG was reviewed and interpreted by myself. 12-lead ECG performed at 0928 is interpreted by me as revealing normal sinus rhythm at a rate of 72 beats per minute. Left axis deviation. [place] interval is 159 ms, QRS duration is 147 ms, QTc is 469 ms.. There were no ST or T wave abnormalities to suggest myocardial ischemia or injury. R wave progression across the precordium was satisfactory. By my interpretation this EKG is non-diagnostic for acute ischemia. RBBB prese nt. Disposition Clinical Impression: Melena, Cancer, Syncope, Occult blood positive stool Disposition: ADMITTED IP TO THIS HOSP Condition: Stable Time of Disposition: 11:38
--- NOTE | 2021-10-03 13:12 | HP ---
HISTORY AND PHYSICAL CHIEF COMPLAINT: Syncopal episode. HISTORY OF PRESENT ILLNESS: This is a short-term readmission for this gentleman who just went home on Monday. 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 He also underwent endoscopy and had a lesion in the cecum biopsied. He was to go home and be followed up with hospice. Apparently he became syncopal and ambulance was summoned. REVIEW OF SYSTEMS: There is no history of stroke-like symptoms, chest pain, abdominal pain, hematemesis, melena, hematochezia, etc. Past medical history, family history and personal and social histories are all otherwise unremarkable or unchanged from his discharge several days ago. PHYSICAL EXAMINATION: He is pale and chronically ill and very weak. HEAD, ears, eyes, nose, mouth and throat are unchanged. CHEST is clear. CARDIAC exam is normal and the. ABDOMEN is soft and there are no masses or visceromegaly. Bowel sounds are present. EXTREMITIES are normal. NEUROLOGICALLY: He is intact. IMPRESSION: He is admitted to the hospital with diagnoses: 1. Syncopal episode. 2. Adenocarcinoma of the lung. 3. Blood loss anemia. 4. Lesion in the cecum. PLAN: 1. Bedrest. 2. IV fluids. 3. Address again the discharge planning. MMODL / IJN: [id number] /
[2021-10-03] MEDS: SODIUM CHLORIDE 0.9% 1,000 ML IV SCH (14:15)
[2021-10-03 17:07] LABS: Appearance,Urine Clear (Clear); Bacteria,Urine Rare /hpf; Bilirubin,Urine Negative (Negative); Blood,Urine Negative (Negative); Color,Urine Yellow; Glucose,Urine (UA) Negative (Negative); Hyaline Casts,Urine 7 /lpf (0-2); Ketones,Urine Negative (Negative); Leukocyte Esterase,Urine Negative (Negative); Mucus,Urine Many /hpf; Nitrite,Urine Negative (Negative); Protein,Urine 1+ (Negative); RBC,Urine 1 /hpf (0-5); Specific Gravity,Urine 1.016 (1.001-1.035); Squamous Epithelial Cell,Urine <1 /hpf (0-4); Urobilinogen,Urine <2.0 mg/dL (<2.0); WBC,Urine 3 /hpf (0-5)
[2021-10-03 17:51] LABS: Basophils % (A) 0 %; Eosinophils # (A) 0.1 k/uL (0-0.7); Eosinophils % (A) 1 %; HCT 22.9 % (39.0-53.0); HGB 7.1 gm/dL (13.0-17.5); Hypochromasia Slight; Lymphocytes % (A) 10 %; MCHC 31.1 g/dL (31.0-37.0); MCV 96.6 fL (80.0-100.0); Mean Platelet Volume 7.8; Monocytes # (A) 0.7 k/uL (0-1.0); Monocytes % (A) 7 %; Neutrophils # (A) 8.6 k/uL (1.3-7.7); Neutrophils % (A) 81 %; Platelet Count 298 k/uL (150-450); RBC 2.37 m/uL (4.30-5.90); RDW 14.1 % (11.5-15.5); WBC 10.6 k/uL (3.8-10.6)
[2021-10-04] MEDS: SODIUM CHLORIDE 0.9% 1,000 ML IV SCH ×3 (03:32→20:01)
[2021-10-04 09:06] LABS: Basophils % (A) 0 %; Eosinophils # (A) 0.2 k/uL (0-0.7); Eosinophils % (A) 3 %; HCT 23.1 % (39.0-53.0); HGB 7.5 gm/dL (13.0-17.5); Hypochromasia Slight; Lymphocytes # (A) 0.9 k/uL (1.0-4.8); Lymphocytes % (A) 11 %; MCH 31.7 pg (25.0-35.0); MCHC 32.4 g/dL (31.0-37.0); Mean Platelet Volume 7.7; Monocytes # (A) 0.6 k/uL (0-1.0); Monocytes % (A) 6 %; Neutrophils # (A) 6.7 k/uL (1.3-7.7); Neutrophils % (A) 78 %; Platelet Count 311 k/uL (150-450); RBC 2.36 m/uL (4.30-5.90); RDW 14.3 % (11.5-15.5); WBC 8.6 k/uL (3.8-10.6)
[2021-10-04 09:19] LABS: Calcium 7.7 mg/dL (8.4-10.2); Potassium 3.8 mmol/L (3.5-5.1)
--- NOTE | 2021-10-04 12:07 | P.GSCN ---
History of Present Illness Consult date: 10/04/21 History of present illness: CHIEF COMPLAINT: Syncope Reason for consult: Melena, cancer HISTORY OF PRESENT ILLNESS: This is a 81-year-old male with a known history of metastatic lung cancer. He ws found to have cecal mass noted on his recent colonoscopy that was on 4 days ago. Biopsy results are still pending. Patient was discharged home on 10/02/2021. There was discussion about starting hospice at home. However, patient presents back to the hospital after a possible syncopal episode at home as well as having black stools. Per patient he reports that he just fell asleep in his wheelchair. Hemoglobin on discharge was 8.7 and he has trended down to 7.1. Stool for occult blood was positive. Patient denies any abdominal pain. Denies any nausea or vomiting. Patient reports that he just wants to go home. PAST MEDICAL HISTORY: See list. PAST SURGICAL HISTORY: See list. MEDICATIONS: See list. ALLERGIES: See list. SOCIAL HISTORY: No illicit drug use. REVIEW OF SYSTEMS: CONSTITUTIONAL: Denies fever or chills. HEENT: Denies blurred vision, vision changes, or eye pain. Denies hemoptysis CARDIOVASCULAR: Denies chest pain or pressure. RESPIRATORY: No shortness of breath. GASTROINTESTINAL: See HPI for pertinent findings HEMATOLOGIC: Denies bleeding disorders. GENITOURINARY: Denies any blood in urine or increased urinary frequency. SKIN: Denies pruitis. Denies rash. PHYSICAL EXAM: VITAL SIGNS: Reviewed GENERAL: Well-developed in no acute distress. HEENT: No sclera icterus. Extraocular movements grossly intact. Moist buccal mucosa. Head is atraumatic, normocephalic. No nasal drainage. ABDOMEN: Soft. Nondistended. Nontender NEUROLOGIC: Awake and alert and able to answer some questions. Patient reports that he has forgetfulness. LABORATORY DATA: WBC 8.6 hemoglobin did go up from 7.1-7.5 platelets 311 Sodium 137 potassium 3.8 creatinine 1.09 IMAGING: ASSESSMENT: 1. Anemia 2. GI bleed with melena stools 3. Status post EGD and colonoscopy on 09/30/2021 demonstrates small hiatal hernia, cecal mass, right-sided colon polyps and diverticulosis. Biopsy results pending PLAN: -Further recommendations forthcoming per surgeon -Agree with hospice consult -Continue supportive care -Continue to monitor for signs or symptoms of bleeding -Continue regular diet Physician Automobile Mechanic Motor note has been reviewed by physician. Signing provider agrees with the documented findings, assessment, and plan of care. I have personally seen and examined the patient, reviewed the STAINED GLASS GLAZIER HELPER /PAs history, exam and MDM and agree with the assessment and plan as written. Based on total visit time, I have performed more than 50% of the visit. As above: Patient without any further bleeding at this time. Patient states he is going home with outpatient hospice. Will follow until discharge. Past Medical History Past Medical History: Cancer, Hypertension, Syncope Additional Past Medical History / Comment(s): Lung cancer, skin cancer and colon cancer, History of Any Multi-Drug Resistant Organisms: None Reported Past Surgical History: No Surgical Hx Reported Smoking Status: Former smoker - Past Family History Father Family Medical History: Unable to Obtain Mother Family Medical History: Unable to Obtain Medications and Allergies Home Medications Medication Instructions Recorded Confirmed Type Carvedilol [Coreg] 12.5 mg PO DAILY@0800 07/15/20 10/03/21 History ALPRAZolam [Xanax] 0.25 mg PO BID@0800,2300 09/23/21 10/03/21 History Budesonide/Formoterol Fumarate 2 puff INHALATION RT-BID@0830,2030 09/23/21 10/03/21 History [Symbicort 160-4.5 Mcg Inhaler] Carvedilol [Coreg] 25 mg PO HS@2200 09/23/21 10/03/21 History Famotidine 20 mg PO BID@0830,1600 09/23/21 10/03/21 History Primidone [Mysoline] 50 mg PO TID@0800,1400,2200 09/23/21 10/03/21 History amLODIPine BESYLATE/BENAZEPRIL 1 cap PO DAILY@1600 09/23/21 10/03/21 History [Lotrel 5-10 MG] Allergies Allergy/AdvReac Type Severity Reaction Status Date / Time No Known Allergies Allergy Verified 10/03/21 13:29 Surgical - Exam Vital Signs Temp Pulse Resp BP Pulse Ox 98.0 F 72 18 105/51 98 10/03/21 09:22 10/03/21 09:22 10/03/21 09:22 10/03/21 09:22 10/03/21 09:22 Results - Labs 10/04/21 08:21 10/04/21 08:21 Abnormal Lab Results - Last 24 Hours (Table) 10/03/21 10/03/21 10/04/21 Range/Units 10:13 17:48 08:21 RBC 2.37 L 2.36 L (4.30-5.90) m/uL Hgb 7.1 L 7.5 L (13.0-17.5) gm/dL Hct 22.9 L 23.1 L (39.0-53.0) % Neutrophils # 8.6 H (1.3-7.7) k/uL Lymphocytes # 0.9 L (1.0-4.8) k/uL Glucose (74-99) mg/dL Calcium (8.4-10.2) mg/dL Urine Protein 1+ H (Negative) Urine Bacteria Rare H (None) /hpf Hyaline Casts 7 H (0-2) /lpf Urine Mucus Many H (None) /hpf 10/04/21 Range/Units 08:21 RBC (4.30-5.90) m/uL Hgb (13.0-17.5) gm/dL Hct (39.0-53.0) % Neutrophils # (1.3-7.7) k/uL Lymphocytes # (1.0-4.8) k/uL Glucose 123 H (74-99) mg/dL Calcium 7.7 L (8.4-10.2) mg/dL Urine Protein (Negative) Urine Bacteria (None) /hpf Hyaline Casts (0-2) /lpf Urine Mucus (None) /hpf Diabetes panel 10/04/21 Range/Units 08:21 Sodium 137 (137-145) mmol/L Potassium 3.8 (3.5-5.1) mmol/L Chloride 104 (98-107) mmol/L Carbon Dioxide 26 (22-30) mmol/L BUN 14 (9-20) mg/dL Creatinine 1.09 (0.66-1.25) mg/dL Glucose 123 H (74-99) mg/dL Calcium 7.7 L (8.4-10.2) mg/dL Calcium panel 10/04/21 Range/Units 08:21 Calcium 7.7 L (8.4-10.2) mg/dL Pituitary panel 10/04/21 Range/Units 08:21 Sodium 137 (137-145) mmol/L Potassium 3.8 (3.5-5.1) mmol/L Chloride 104 (98-107) mmol/L Carbon Dioxide 26 (22-30) mmol/L BUN 14 (9-20) mg/dL Creatinine 1.09 (0.66-1.25) mg/dL Glucose 123 H (74-99) mg/dL Calcium 7.7 L (8.4-10.2) mg/dL Adrenal panel 10/04/21 Range/Units 08:21 Sodium 137 (137-145) mmol/L Potassium 3.8 (3.5-5.1) mmol/L Chloride 104 (98-107) mmol/L Carbon Dioxide 26 (22-30) mmol/L BUN 14 (9-20) mg/dL Creatinine 1.09 (0.66-1.25) mg/dL Glucose 123 H (74-99) mg/dL Calcium 7.7 L (8.4-10.2) mg/dL
[2021-10-04 17:19] VITALS: RESP 18
--- NOTE | 2021-10-04 19:43 | PN ---
PROGRESS NOTE CHIEF COMPLAINT: General debility and failure to thrive with adenocarcinoma of the lung. HISTORY OF PRESENT ILLNESS: This gentleman is awake and alert. He is very upset about being in the hospital and is insistent on going home. This absolutely will not work because his is incapacitated, debilitated and is unable to help. There is nobody to stay with them around the clock. The patient was told that we will try to get him a consult with Hospice and arrange for his discharge either to a [facility] on hospice or home. PHYSICAL EXAMINATION: He has crackling rales at the bases and his cardiac exam is normal. He remains very pale. The abdomen is soft and nontender. IMPRESSION: 1. Adenocarcinoma of the lung. 2. Blood-loss anemia. 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 4. General debility and weakness. PLAN: 1. Refer to Discharge Planning. 2. I had a long discussion with the daughter, Loyda. It was explained that he will have to go to some type of facility after discharge, and that will likely be [facility]. MMJOL / IJN: [id number] /
[2021-10-04] MEDS: ALPRAZolam 0.25 MG TAB PO PRN (23:03)
[2021-10-05] MEDS: SODIUM CHLORIDE 0.9% 1,000 ML IV SCH (06:47)
--- NOTE | 2021-10-05 12:13 | P.PN ---
Subjective Progress Note Date: 10/05/21 CHIEF COMPLAINT: Syncope and melanotic stool HISTORY OF PRESENT ILLNESS: Patient is lying in bed comfortably. Denies any abdominal pain. Reports having a small brown bowel movements. Denies any nausea vomiting. He ate a few bites of his breakfast. Afebrile. Hemoglobin 7.5 yesterday. Patient reports that he is being assessed for possible rehab placement. PHYSICAL EXAM: VITAL SIGNS: Reviewed. GENERAL: Well-developed in no acute distress. HEENT: No sclera icterus. Extraocular movements grossly intact. Moist buccal mucosa. Head is atraumatic, normocephalic. ABDOMEN: Soft. Nondistended. Nontender. NEUROLOGIC: Alert and oriented. Cranial nerves II through XII grossly intact. ASSESSMENT: 1. Anemia 2. GI bleed with melena stools 3. Status post EGD and colonoscopy on 09/30/2021 demonstrates small hiatal hernia, cecal mass, right-sided colon polyps and diverticulosis. Biopsy results pending PLAN: -Continue supportive care -Continue to monitor for signs or symptoms of bleeding -Continue regular diet -Patient is apparently being assessed for possible rehab placement Physician Criminal Justice Faculty note has been reviewed by physician. Signing provider agrees with the documented findings, assessment, and plan of care. I have personally seen and examined the patient, reviewed the PIPE MACHINE OPERATOR /PAs history, exam and MDM and agree with the assessment and plan as written. Based on total visit time, I have performed more than 50% of the visit. As above: Patient a bowel movement that was nonbloody. Denies abdominal pain. Patient is depressed that he cannot go home. Continue discharge planning. Objective - Vital Signs Vital signs: Vital Signs Temp 98.8 F 10/05/21 08:00 Pulse 88 10/05/21 08:00 Resp 18 10/05/21 08:00 BP 121/48 10/05/21 08:00 Pulse Ox 95 10/05/21 08:00 Intake & Output 10/04/21 10/05/21 10/05/21 18:59 06:59 18:59 Intake Total 900 120 Balance 900 120 Intake: Oral 900 120 Other: # Voids 2 1 - Labs CBC & Chem 7: 10/04/21 08:21 10/04/21 08:21
[2021-10-05] MEDS: PRIMIDONE 50 MG TAB PO SCH ×2 (13:30→20:40)
[2021-10-05] MEDS: FAMOTIDINE 20 MG TAB PO SCH (18:06)
[2021-10-05] MEDS: SYMBICORT 160-4.5 MCG INHALER INHALATION SCH (19:57)
[2021-10-05] MEDS: ALPRAZolam 0.25 MG TAB PO PRN (20:40)
--- NOTE | 2021-10-05 20:42 | PN ---
PROGRESS NOTE CHIEF COMPLAINT: Fall, blood-loss anemia, adenocarcinoma of the lung. HISTORY OF PRESENT ILLNESS: This gentleman is comfortable and has no complaints except he is adamant about wanting to go home. The current plan is that he will go to [facility] for physical therapy and rehab, if he qualifies. PHYSICAL EXAMINATION: He remains pale. His chest is clear. Cardiac exam is normal. Abdomen is soft, nontender. IMPRESSION: 1. Adenocarcinoma of the lung. 2. 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 3. Blood-loss anemia. PLAN: Work on a discharge plan today. MMODL / IJN: [id number] /
[2021-10-06] MEDS: SYMBICORT 160-4.5 MCG INHALER INHALATION SCH (09:14)
[2021-10-06] MEDS: FAMOTIDINE 20 MG TAB PO SCH (09:37)
[2021-10-06] MEDS: SODIUM CHLORIDE 0.9% 1,000 ML IV SCH ×3 (09:37→09:41)
[2021-10-06] MEDS: PRIMIDONE 50 MG TAB PO SCH ×2 (09:37→14:00)
[2021-10-06] MEDS: ALPRAZolam 0.25 MG TAB PO PRN (09:38)
[2021-10-06 10:23] VITALS: TEMP 98.3
[2021-10-06 14:07] VITALS: BP 123/57
--- NOTE | 2021-10-06 15:41 | DS ---
DISCHARGE SUMMARY CHIEF COMPLAINT: General debility and frequent falling. HISTORY OF PRESENT ILLNESS AND PHYSICAL EXAMINATION: Details of this man's history and physical can be found in the initial workup. LABORATORY STUDIES: While he was in the hospital he had laboratory studies, details of which can be found in the laboratory section of his chart. COURSE IN THE HOSPITAL: After admission he was placed on bedrest, started on intravenous fluids. He basically remained fairly stable in terms of his vital signs. Once again Supervisor Instrument Repair got involved to try to decide the best way for him to go home. There was a conflict as to whether not he would go home or to a skilled nursing or a hospice facility, with the difficulty being the cost of the featheredge machine operator in each facility. Finally it was decided that he would go home with hospice, and he will be discharged on October 06. FINAL DIAGNOSIS: 1. General debility and weakness. 2. Frequent falling. 3. Adenocarcinoma of the lung. 4. Blood loss anemia. 5. 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 OPERATIONS: None. CONSULTATIONS: None. He is improved. MMSILVIA / ASMITA: [id number] /
[2021-10-06 16:29] VITALS: PULSE 84
--- NOTE | 2021-10-11 18:45 | CDI ---
Documentation Clarification Form Date: 10/11/2021 06:22:56 PM From: Sabra Kaminski RN, CCDS Admit Date: 10/03/2021 11:36:00 AM Patient Name: Jose Blue Visit Number: [id number] Discharge Date: 10/06/2021 04:33:00 PM ATTENTION: The Clinical Documentation Specialists (CDI) and [facility] Coding Staff appreciate your assistance in clarifying documentation. Please respond to the clarification below the line at the bottom and electronically sign. The CDI & [facility] Coding staff will review the response and follow-up if needed. Please note: Queries are made part of the Legal Health Record. If you have any questions, please contact the author of this message via ITS. Dr. Usman Alfonso Unspecified blood loss anemia is documented in the H/P and subsequent progress notes. Additional specificity regarding the acuity of anemia is requested. 10/04 GI consult: Anemia. GI bleed with melena stools History/Risk Factors: Cancer, hypertension, syncope, Lung cancer, skin cancer, colon cancer Clinical indicators: 80-year-old male present with a single episode of rectal bleeding at home, was unresponsive. Ed exam concerned for symptomatic anemia likely secondary to bleeding in his stool. 10/03 vital signs 105/51 72 18 98.0 10/03 Hemoglobin: 7.7, 7.1 Hematocrit 23.4, 22.9 10/04 Hemoblogin 7.5, Hematocrit 23.1 10/03 Fecal occult blood positive Treatment: Telemetry Monitoring Monitor signs or symptoms of bleeding CBC daily x2, and per order Pepcid 20 MG PO BID Please clarify the type and acuity of anemia: [ ] Acute blood loss anemia [ ] Acute on chronic blood loss anemia [ ] Chronic blood loss anemia [ ] Anemia due to malignancy [ ] Unable to determine [ ] Other, please specify (Template Last Revised: July 2020) MTDD
--- NOTE | 2021-10-12 12:29 | MISC ---
MISCELLANOUS REPORT QUERY: Chronic blood-loss anemia. MMODL / IJN: [id number] /
--- NOTE | 2021-10-13 14:19 | CDI ---
Documentation Clarification Form Date: 10/13/2021 01:46:22 PM From: Sabra Kaminski RN, CCDS Admit Date: 10/03/2021 11:36:00 AM Patient Name: Jose Blue Visit Number: [id number] Discharge Date: 10/06/2021 04:33:00 PM ATTENTION: The Clinical Documentation Specialists (CDI) and [facility] Coding Staff appreciate your assistance in clarifying documentation. Please respond to the clarification below the line at the bottom and electronically sign. The CDI & [facility] Coding staff will review the response and follow-up if needed. Please note: Queries are made part of the Legal Health Record. If you have any questions, please contact the author of this message via ITS. Dr. 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 On progress note on 10/05/21. Please clarify if there is a relationship between the diagnoses. History/Risk Factors: Lung Cancer, Colon Cancer, Hypertension Clinical Indicators: 80-year-old male present with blood loss anemia secondary to blood in his stool. He has history of metastatic lung cancer. He was found to have cecal mass noted on his recent Colonoscopy on 09/30/21. 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 Treatment: Telemetry Monitoring Monitor CBC daily x2 Monitor signs or symptoms of bleeding Pepcid 20 MG PO BID Please clarify the relationship, if any, which is clinically appropriate for this patient: [ ] Melena stools with chronic blood loss anemia is due to positive pathology findings of Adenocarcinoma of the Cecum [ ] Melena stools with chronic blood loss anemia is not due to Adenocarcinoma of the cecum [ ] Other explanation of clinical findings (please specify) [ ] Unable to determine (no explanation for clinical findings) (Template Last Revised: August 2020) MTDD
--- NOTE | 2021-10-14 10:58 | MISC ---
MISCELLANOUS REPORT QUERY: Melanotic stools with chronic blood loss anemia due to positive finding of adenocarcinoma. MMODL / IJN: [id number] /
== END 2021-10-06 16:33 | disposition hospice, home (50) ==
LOC: EC 09:22 → INTOOBSV 11:36 → 4SSUR 11:36 → 3SCARD 12:31 → UNDODISIN 10-06 16:33
PROVIDERS: ADMIT Family Medicine; ATTEND Family Medicine
DX: R53.1 Weakness (principal); R53.81 Other malaise; R29.6 Repeated falls; D50.0 Iron deficiency anemia secondary to blood loss (chronic); K92.1 Melena; C34.11 Malignant neoplasm of upper lobe, right bronchus or lung; C18.0 Malignant neoplasm of cecum; K44.9 Diaphragmatic hernia without obstruction or gangrene; K63.5 Polyp of colon; K57.90 Diverticulosis of intestine, part unspecified, without perforation or abscess without bleeding; R79.89 Other specified abnormal findings of blood chemistry; I10 Essential (primary) hypertension; R62.7 Adult failure to thrive; Z79.51 Long term (current) use of inhaled steroids; Z79.899 Other long term (current) drug therapy; Z85.828 Personal history of other malignant neoplasm of skin; Z87.891 Personal history of nicotine dependence
CPT/HCPCS: 96361 ×4; 96360; 99285; 36415; 94640 ×2; 93005; 97162; 97166; 80053; 80048; 83735; 84484; 85025 ×2; 85610; 85730; 82272; 81001; 71046; 70450; G0378 ×4

== ENCOUNTER 2021-10-07 00:31 | Emergency (ER) | payer MEDICARE ==
--- NOTE | 2021-10-07 00:57 | ED ---
Weakness HPI - General Stated complaint: Hypotension Time Seen by Provider: 10/07/21 00:39 Source: patient Mode of arrival: ambulatory Limitations: no limitations - History of Present Illness Initial comments: Patient is an 81-year-old man who is brought by ambulance to be evaluated for generalized weakness and difficulty walking. The patient's phoned EMS after he had lost balance and fallen. Patient denies any injury. He states that he was just released from the hospital today. He states that his plan was to just lie down and rest until morning and see how he felt, but his called the ambulance. Patient denies any pain. No dyspnea. No fever or chills. No focal weakness. MD Complaint: generalized weakness, lack of energy, difficulty walking -: unknown Location: generalized Consistency: constant Improves with: none Worsens with: none Associated Symptoms: denies other symptoms - Related Data Home Medications Medication Instructions Recorded Confirmed Carvedilol [Coreg] 12.5 mg PO DAILY@0800 07/15/20 10/03/21 Budesonide/Formoterol Fumarate 2 puff INHALATION RT-BID@0830,2030 09/23/21 10/03/21 [Symbicort 160-4.5 Mcg Inhaler] Famotidine 20 mg PO BID@0830,1600 09/23/21 10/03/21 Primidone [Mysoline] 50 mg PO TID@0800,1400,2200 09/23/21 10/03/21 amLODIPine BESYLATE/BENAZEPRIL 1 cap PO DAILY@1600 09/23/21 10/03/21 [Lotrel 5-10 MG] Allergies Allergy/AdvReac Type Severity Reaction Status Date / Time No Known Allergies Allergy Verified 10/07/21 00:54 Review of Systems ROS Statement: Those systems with pertinent positive or pertinent negative responses have been documented in the HPI. ROS Other: All systems not noted in ROS Statement are negative. Constitutional: Reports: weakness. Denies: fever, chills Eyes: Denies: vision change Respiratory: Denies: cough, dyspnea Cardiovascular: Denies: chest pain, palpitations Gastrointestinal: Denies: abdominal pain, nausea, vomiting Genitourinary: Denies: dysuria Musculoskeletal: Denies: back pain Skin: Denies: rash Neurological: Denies: headache, weakness Past Medical History Past Medical History: Cancer, Hypertension, Syncope Additional Past Medical History / Comment(s): Lung cancer, skin cancer and colon cancer, History of Any Multi-Drug Resistant Organisms: None Reported Past Surgical History: No Surgical Hx Reported Past Psychological History: No Psychological Hx Reported Smoking Status: Former smoker - Past Family History Father Family Medical History: Unable to Obtain Mother Family Medical History: Unable to Obtain General Exam Limitations: no limitations General appearance: alert, in no apparent distress Head exam: Present: atraumatic, normocephalic Eye exam: Present: normal appearance. Absent: scleral icterus, conjunctival injection, nystagmus ENT exam: Present: mucous membranes dry Neck exam: Present: normal inspection Respiratory exam: Present: normal lung sounds bilaterally, rales (Bilateral bases). Absent: respiratory distress, wheezes, rhonchi, stridor Cardiovascular Exam: Present: regular rate, normal rhythm, normal heart sounds. Absent: systolic murmur, diastolic murmur, rubs, gallop GI/Abdominal exam: Present: soft. Absent: distended, tenderness, guarding, rebound, rigid, mass Extremities exam: Present: normal inspection, normal capillary refill Back exam: Present: normal inspection. Absent: CVA tenderness (R), CVA tenderness (L) Neurological exam: Present: alert, oriented X3, CN II-XII intact. Absent: motor sensory deficit Skin exam: Present: warm, dry, normal color, other (Small skin tear left fore arm). Absent: rash Course Vital Signs 10/07/21 10/07/21 10/07/21 00:50 03:12 05:50 Temperature 98.4 F 98.1 F Pulse Rate 75 75 79 Respiratory 16 16 16 Rate Blood Pressure 107/57 100/57 121/63 O2 Sat by Pulse 97 99 Oximetry 10/07/21 10/07/21 06:00 06:30 Temperature 98 F 97.8 F Pulse Rate 72 78 Respiratory 18 18 Rate Blood Pressure 115/58 126/62 O2 Sat by Pulse 96 Oximetry Medical Decision Making - Medical Decision Making Patient is an 81-year-old man here for generalized weakness. The patient does express desire to go home. He was made hospice patient with his last admission prior to discharge yesterday. Patient does not desire any change in status just wants to go home. He does seem stable for this following the transfusion. - Lab Data Result diagrams: 10/07/21 00:58 10/07/21 00:58 Lab Results 10/07/21 10/07/21 10/07/21 Range/Units 00:58 00:58 00:58 WBC 10.9 H (3.8-10.6) k/uL RBC 2.16 L (4.30-5.90) m/uL Hgb 6.7 L* (13.0-17.5) gm/dL Hct 20.4 L (39.0-53.0) % MCV 94.5 (80.0-100.0) fL MCH 31.0 (25.0-35.0) pg MCHC 32.8 (31.0-37.0) g/dL RDW 14.4 (11.5-15.5) % Plt Count 336 (150-450) k/uL MPV 7.7 Neutrophils % 83 % Lymphocytes % 9 % Monocytes % 6 % Eosinophils % 1 % Basophils % 0 % Neutrophils # 9.0 H (1.3-7.7) k/uL Lymphocytes # 1.0 (1.0-4.8) k/uL Monocytes # 0.7 (0-1.0) k/uL Eosinophils # 0.1 (0-0.7) k/uL Basophils # 0.0 (0-0.2) k/uL Sodium 130 L (137-145) mmol/L Potassium 3.6 (3.5-5.1) mmol/L Chloride 100 (98-107) mmol/L Carbon Dioxide 24 (22-30) mmol/L Anion Gap 6 mmol/L BUN 14 (9-20) mg/dL Creatinine 1.26 H (0.66-1.25) mg/dL Est GFR (CKD-EPI)AfAm 61 (>60 ml/min/1.73 sqM) Est GFR (CKD-EPI)NonAf 53 (>60 ml/min/1.73 sqM) Glucose 123 H (74-99) mg/dL Plasma Lactic Acid Misha 1.3 (0.7-2.0) mmol/L Calcium 7.7 L (8.4-10.2) mg/dL Magnesium 1.7 (1.6-2.3) mg/dL Total Bilirubin 0.5 (0.2-1.3) mg/dL AST 28 (17-59) U/L ALT 29 (4-49) U/L Alkaline Phosphatase 65 (38-126) U/L Troponin I (0.000-0.034) ng/mL Total Protein 4.9 L (6.3-8.2) g/dL Albumin 2.4 L (3.5-5.0) g/dL Urine Color Urine Appearance (Clear) Urine pH (5.0-8.0) Ur Specific [place] (1.001-1.035) Urine Protein (Negative) Urine Glucose (UA) (Negative) Urine Ketones (Negative) Urine Blood (Negative) Urine Nitrite (Negative) Urine Bilirubin (Negative) Urine Urobilinogen (<2.0) mg/dL Ur Leukocyte Esterase (Negative) Urine RBC (0-5) /hpf Urine WBC (0-5) /hpf Hyaline Casts (0-2) /lpf Urine Mucus (None) /hpf Blood Type Blood Type Recheck Bld Type Recheck Status Antibody Screen Crossmatch Spec Expiration Date 10/07/21 10/07/21 10/07/21 Range/Units 00:58 02:28 04:01 WBC (3.8-10.6) k/uL RBC (4.30-5.90) m/uL Hgb (13.0-17.5) gm/dL Hct (39.0-53.0) % MCV (80.0-100.0) fL MCH (25.0-35.0) pg MCHC (31.0-37.0) g/dL RDW (11.5-15.5) % Plt Count (150-450) k/uL MPV Neutrophils % % Lymphocytes % % Monocytes % % Eosinophils % % Basophils % % Neutrophils # (1.3-7.7) k/uL Lymphocytes # (1.0-4.8) k/uL Monocytes # (0-1.0) k/uL Eosinophils # (0-0.7) k/uL Basophils # (0-0.2) k/uL Sodium (137-145) mmol/L Potassium (3.5-5.1) mmol/L Chloride (98-107) mmol/L Carbon Dioxide (22-30) mmol/L Anion Gap mmol/L BUN (9-20) mg/dL Creatinine (0.66-1.25) mg/dL Est GFR (CKD-EPI)AfAm (>60 ml/min/1.73 sqM) Est GFR (CKD-EPI)NonAf (>60 ml/min/1.73 sqM) Glucose (74-99) mg/dL Plasma Lactic Acid Misha (0.7-2.0) mmol/L Calcium (8.4-10.2) mg/dL Magnesium (1.6-2.3) mg/dL Total Bilirubin (0.2-1.3) mg/dL AST (17-59) U/L ALT (4-49) U/L Alkaline Phosphatase (38-126) U/L Troponin I 0.060 H* (0.000-0.034) ng/mL Total Protein (6.3-8.2) g/dL Albumin (3.5-5.0) g/dL Urine Color Yellow Urine Appearance Clear (Clear) Urine pH 6.0 (5.0-8.0) Ur Specific [place] 1.016 (1.001-1.035) Urine Protein 1+ H (Negative) Urine Glucose (UA) Negative (Negative) Urine Ketones Negative (Negative) Urine Blood Negative (Negative) Urine Nitrite Negative (Negative) Urine Bilirubin Negative (Negative) Urine Urobilinogen <2.0 (<2.0) mg/dL Ur Leukocyte Esterase Negative (Negative) Urine RBC 3 (0-5) /hpf Urine WBC 2 (0-5) /hpf Hyaline Casts 12 H (0-2) /lpf Urine Mucus Many H (None) /hpf Blood Type O Positive Blood Type Recheck O Pos Bld Type Recheck Status No Antibody Screen NEGATIVE Crossmatch See Detail Spec Expiration Date 10/10/20212327 Disposition Clinical Impression: Anemia, Generalized weakness Disposition: HOME SELF-CARE Condition: Fair Is patient prescribed a controlled substance at d/c from ED?: No Referrals: Usman Alfonso MD [Primary Care Provider] - 1-2 days
[2021-10-07 01:23] LABS: Basophils % (A) 0 %; Eosinophils # (A) 0.1 k/uL (0-0.7); Eosinophils % (A) 1 %; HCT 20.4 % (39.0-53.0); Lymphocytes % (A) 9 %; MCHC 32.8 g/dL (31.0-37.0); MCV 94.5 fL (80.0-100.0); Mean Platelet Volume 7.7; Monocytes # (A) 0.7 k/uL (0-1.0); Monocytes % (A) 6 %; Neutrophils % (A) 83 %; Platelet Count 336 k/uL (150-450); RBC 2.16 m/uL (4.30-5.90); RDW 14.4 % (11.5-15.5); WBC 10.9 k/uL (3.8-10.6)
[2021-10-07 01:32] LABS: HGB 6.7 gm/dL (13.0-17.5)
[2021-10-07 01:44] LABS: Albumin 2.4 g/dL (3.5-5.0); Calcium 7.7 mg/dL (8.4-10.2); Magnesium 1.7 mg/dL (1.6-2.3); Potassium 3.6 mmol/L (3.5-5.1); Total Bilirubin 0.5 mg/dL (0.2-1.3); Total Protein 4.9 g/dL (6.3-8.2)
[2021-10-07 04:08] LABS: Appearance,Urine Clear (Clear); Bilirubin,Urine Negative (Negative); Blood,Urine Negative (Negative); Color,Urine Yellow; Glucose,Urine (UA) Negative (Negative); Hyaline Casts,Urine 12 /lpf (0-2); Ketones,Urine Negative (Negative); Leukocyte Esterase,Urine Negative (Negative); Mucus,Urine Many /hpf; Nitrite,Urine Negative (Negative); Protein,Urine 1+ (Negative); RBC,Urine 3 /hpf (0-5); Specific Gravity,Urine 1.016 (1.001-1.035); Urobilinogen,Urine <2.0 mg/dL (<2.0); WBC,Urine 2 /hpf (0-5)
[2021-10-07 06:02] VITALS: RESP 18
[2021-10-07 08:28] VITALS: TEMP 98.2
[2021-10-07 09:17] VITALS: BP 128/84; PULSE 80
== END 2021-10-07 09:48 | disposition home or self-care (01) ==
LOC: EC 00:31
DX: D64.9 Anemia, unspecified (principal); R53.1 Weakness; I10 Essential (primary) hypertension; Z87.891 Personal history of nicotine dependence
CPT/HCPCS: 36415; 86900; 86901; 80053; 83605; 83735; 84484; 85025; 86850; 86920; 81001; 99284; P9016; 93005

== ENCOUNTER 2021-11-09 01:12 | Inpatient (IN) | payer MEDICARE ==
--- NOTE | 2021-11-09 01:47 | ED ---
Weakness HPI - General Chief complaint: Weakness Stated complaint: Altered mental status Time Seen by Provider: 11/09/21 01:18 Source: patient Mode of arrival: ambulatory - History of Present Illness Initial comments: This patient is an 81-year-old man brought by ambulance to be evaluated for generalized weakness. The patient states he has been feeling a little fatigued all day. He was attempting to walk across his condo tonight when he became so weak that he slumped to the ground despite using his walker. The patient denies any injury. He states he did not have any energy to get up. A neighbor called the ambulance and he was brought here for evaluation. Patient denies having fever or chills. Denies focal weakness. No pain. No dyspnea. No vomiting or diarrhea. No change in urination noted MD Complaint: generalized weakness, difficulty walking -: hour(s) Location: generalized Consistency: constant Improves with: none Worsens with: none Associated Symptoms: denies other symptoms - Related Data Home Medications Medication Instructions Recorded Confirmed Carvedilol [Coreg] 12.5 mg PO DAILY@0800 07/15/20 11/09/21 Budesonide/Formoterol Fumarate 2 puff INHALATION RT-BID 09/23/21 11/09/21 [Symbicort 160-4.5 Mcg Inhaler] Famotidine 20 mg PO DAILY@1200 09/23/21 11/09/21 Primidone [Mysoline] 50 mg PO TID@0800,1400,2200 09/23/21 11/09/21 amLODIPine BESYLATE/BENAZEPRIL 1 cap PO DAILY@1600 09/23/21 11/09/21 [Lotrel 5-10 MG] Carvedilol [Coreg] 25 mg PO HS 10/28/21 11/09/21 Previous Rx's Medication Instructions Recorded ALPRAZolam [Xanax] 0.25 mg PO TID #30 tab 11/08/21 Allergies Allergy/AdvReac Type Severity Reaction Status Date / Time No Known Allergies Allergy Verified 11/09/21 07:25 Review of Systems ROS Statement: Those systems with pertinent positive or pertinent negative responses have been documented in the HPI. ROS Other: All systems not noted in ROS Statement are negative. Constitutional: Reports: weakness. Denies: fever, chills Respiratory: Denies: cough, dyspnea Cardiovascular: Denies: chest pain, palpitations, edema, syncope Gastrointestinal: Denies: abdominal pain, vomiting, diarrhea Genitourinary: Denies: dysuria, hematuria Musculoskeletal: Denies: back pain Skin: Denies: rash Neurological: Denies: headache, weakness Past Medical History Past Medical History: Cancer, Hypertension, Syncope Additional Past Medical History / Comment(s): Lung cancer, skin cancer and colon cancer, History of Any Multi-Drug Resistant Organisms: None Reported Past Surgical History: No Surgical Hx Reported Past Psychological History: No Psychological Hx Reported Smoking Status: Former smoker - Past Family History Father Family Medical History: Unable to Obtain Mother Family Medical History: Unable to Obtain General Exam General appearance: alert, in no apparent distress Head exam: Present: atraumatic, normocephalic Eye exam: Present: normal appearance. Absent: scleral icterus, conjunctival injection Neck exam: Present: normal inspection, full ROM. Absent: tenderness Respiratory exam: Present: normal lung sounds bilaterally. Absent: respiratory distress, wheezes, rales, rhonchi, stridor Cardiovascular Exam: Present: regular rate, normal rhythm, normal heart sounds. Absent: systolic murmur, diastolic murmur, rubs, gallop GI/Abdominal exam: Present: soft. Absent: distended, tenderness, guarding, rebound, rigid, mass Extremities exam: Present: normal inspection, normal capillary refill. Absent: pedal edema, calf tenderness Back exam: Present: normal inspection. Absent: CVA tenderness (R), CVA tenderness (L) Neurological exam: Present: alert Skin exam: Present: warm, dry, intact, normal color. 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 ] Respiratory 16 20 16 Rate Blood Pressure 105/50 106/47 98/53 Blood Pressure [Right Arm] O2 Sat by Pulse 98 95 95 Oximetry 11/09/21 11/09/21 11/09/21 09:34 09:44 10:00 Temperature 98.2 F 98.3 F 98.1 F Pulse Rate 95 77 73 Pulse Rate [ Automobile Service Writer ] Respiratory 18 18 16 Rate Blood Pressure 103/47 103/50 117/50 Blood Pressure [Right Arm] O2 Sat by Pulse 97 98 98 Oximetry 11/09/21 11/09/21 11/09/21 10:15 10:30 10:45 Temperature 98.2 F 98.3 F 98.3 F Pulse Rate 76 78 78 Pulse Rate [ Automobile Service Writer ] Respiratory 16 16 16 Rate Blood Pressure 91/39 115/51 108/62 Blood Pressure [Right Arm] O2 Sat by Pulse 98 97 Oximetry 11/09/21 11/09/21 11/09/21 12:45 20:00 20:10 Temperature 98.0 F 97.8 F 98.1 F Pulse Rate 88 87 Pulse Rate [ 86 Automobile Service Writer ] Respiratory 18 15 18 Rate Blood Pressure 113/67 111/54 Blood Pressure 110/67 [Right Arm] O2 Sat by Pulse 97 98 Oximetry Medical Decision Making - Lab Data Result diagrams: 11/10/21 07:23 11/10/21 10:56 Lab Results 11/09/21 11/09/21 11/09/21 Range/Units 02:17 02:17 02:17 WBC 12.3 H (3.8-10.6) k/uL RBC 2.23 L (4.30-5.90) m/uL Hgb 6.7 L* (13.0-17.5) gm/dL Hct 20.9 L (39.0-53.0) % MCV 93.6 (80.0-100.0) fL MCH 30.0 (25.0-35.0) pg MCHC 32.1 (31.0-37.0) g/dL RDW 14.2 (11.5-15.5) % Plt Count 351 (150-450) k/uL MPV 8.1 Neutrophils % 80 % Lymphocytes % 10 % Monocytes % 7 % Eosinophils % 1 % Basophils % 0 % Neutrophils # 9.8 H (1.3-7.7) k/uL Lymphocytes # 1.2 (1.0-4.8) k/uL Monocytes # 0.9 (0-1.0) k/uL Eosinophils # 0.2 (0-0.7) k/uL Basophils # 0.0 (0-0.2) k/uL Sodium 125 L (137-145) mmol/L Potassium 4.3 (3.5-5.1) mmol/L Chloride 93 L (98-107) mmol/L Carbon Dioxide 28 (22-30) mmol/L Anion Gap 4 mmol/L BUN 28 H (9-20) mg/dL Creatinine 1.24 (0.66-1.25) mg/dL Est GFR (CKD-EPI)AfAm 63 (>60 ml/min/1.73 sqM) Est GFR (CKD-EPI)NonAf 54 (>60 ml/min/1.73 sqM) Glucose 104 H (74-99) mg/dL Plasma Lactic Acid Misha 1.5 (0.7-2.0) mmol/L Calcium 8.2 L (8.4-10.2) mg/dL Magnesium 2.0 (1.6-2.3) mg/dL Total Bilirubin 0.3 (0.2-1.3) mg/dL AST 42 (17-59) U/L ALT 43 (4-49) U/L Alkaline Phosphatase 78 (38-126) U/L Troponin I (0.000-0.034) ng/mL Total Protein 5.3 L (6.3-8.2) g/dL Albumin 2.5 L (3.5-5.0) g/dL Urine Color Urine Appearance (Clear) Urine pH (5.0-8.0) Ur Specific [place] (1.001-1.035) Urine Protein (Negative) Urine Glucose (UA) (Negative) Urine Ketones (Negative) Urine Blood (Negative) Urine Nitrite (Negative) Urine Bilirubin (Negative) Urine Urobilinogen (<2.0) mg/dL Ur Leukocyte Esterase (Negative) Coronavirus (PCR) (Not Detectd) Influenza Type A RNA (Not Detectd) Influenza Type B (PCR) (Not Detectd) Blood Type Blood Type Recheck Bld Type Recheck Status Antibody Screen Crossmatch Spec Expiration Date 11/09/21 11/09/21 11/09/21 Range/Units 02:17 02:24 02:24 WBC (3.8-10.6) k/uL RBC (4.30-5.90) m/uL Hgb (13.0-17.5) gm/dL Hct (39.0-53.0) % MCV (80.0-100.0) fL MCH (25.0-35.0) pg MCHC (31.0-37.0) g/dL RDW (11.5-15.5) % Plt Count (150-450) k/uL MPV Neutrophils % % Lymphocytes % % Monocytes % % Eosinophils % % Basophils % % Neutrophils # (1.3-7.7) k/uL Lymphocytes # (1.0-4.8) k/uL Monocytes # (0-1.0) k/uL Eosinophils # (0-0.7) k/uL Basophils # (0-0.2) k/uL Sodium (137-145) mmol/L Potassium (3.5-5.1) mmol/L Chloride (98-107) mmol/L Carbon Dioxide (22-30) mmol/L Anion Gap mmol/L BUN (9-20) mg/dL Creatinine (0.66-1.25) mg/dL Est GFR (CKD-EPI)AfAm (>60 ml/min/1.73 sqM) Est GFR (CKD-EPI)NonAf (>60 ml/min/1.73 sqM) Glucose (74-99) mg/dL Plasma Lactic Acid Misha (0.7-2.0) mmol/L Calcium (8.4-10.2) mg/dL Magnesium (1.6-2.3) mg/dL Total Bilirubin (0.2-1.3) mg/dL AST (17-59) U/L ALT (4-49) U/L Alkaline Phosphatase (38-126) U/L Troponin I 0.084 H* (0.000-0.034) ng/mL Total Protein (6.3-8.2) g/dL Albumin (3.5-5.0) g/dL Urine Color Urine Appearance (Clear) Urine pH (5.0-8.0) Ur Specific [place] (1.001-1.035) Urine Protein (Negative) Urine Glucose (UA) (Negative) Urine Ketones (Negative) Urine Blood (Negative) Urine Nitrite (Negative) Urine Bilirubin (Negative) Urine Urobilinogen (<2.0) mg/dL Ur Leukocyte Esterase (Negative) Coronavirus (PCR) Not Detected (Not Detectd) Influenza Type A RNA Not Detected (Not Detectd) Influenza Type B (PCR) Not Detected (Not Detectd) Blood Type Blood Type Recheck Bld Type Recheck Status Antibody Screen Crossmatch Spec Expiration Date 11/09/21 11/09/21 Range/Units 04:22 05:47 WBC (3.8-10.6) k/uL RBC (4.30-5.90) m/uL Hgb (13.0-17.5) gm/dL Hct (39.0-53.0) % MCV (80.0-100.0) fL MCH (25.0-35.0) pg MCHC (31.0-37.0) g/dL RDW (11.5-15.5) % Plt Count (150-450) k/uL MPV Neutrophils % % Lymphocytes % % Monocytes % % Eosinophils % % Basophils % % Neutrophils # (1.3-7.7) k/uL Lymphocytes # (1.0-4.8) k/uL Monocytes # (0-1.0) k/uL Eosinophils # (0-0.7) k/uL Basophils # (0-0.2) k/uL Sodium (137-145) mmol/L Potassium (3.5-5.1) mmol/L Chloride (98-107) mmol/L Carbon Dioxide (22-30) mmol/L Anion Gap mmol/L BUN (9-20) mg/dL Creatinine (0.66-1.25) mg/dL Est GFR (CKD-EPI)AfAm (>60 ml/min/1.73 sqM) Est GFR (CKD-EPI)NonAf (>60 ml/min/1.73 sqM) Glucose (74-99) mg/dL Plasma Lactic Acid Misha (0.7-2.0) mmol/L Calcium (8.4-10.2) mg/dL Magnesium (1.6-2.3) mg/dL Total Bilirubin (0.2-1.3) mg/dL AST (17-59) U/L ALT (4-49) U/L Alkaline Phosphatase (38-126) U/L Troponin I (0.000-0.034) ng/mL Total Protein (6.3-8.2) g/dL Albumin (3.5-5.0) g/dL Urine Color Yellow Urine Appearance Clear (Clear) Urine pH 5.5 (5.0-8.0) Ur Specific [place] 1.013 (1.001-1.035) Urine Protein Negative (Negative) Urine Glucose (UA) Negative (Negative) Urine Ketones Negative (Negative) Urine Blood Negative (Negative) Urine Nitrite Negative (Negative) Urine Bilirubin Negative (Negative) Urine Urobilinogen <2.0 (<2.0) mg/dL Ur Leukocyte Esterase Negative (Negative) Coronavirus (PCR) (Not Detectd) Influenza Type A RNA (Not Detectd) Influenza Type B (PCR) (Not Detectd) Blood Type O Positive Blood Type Recheck O Pos Bld Type Recheck Status No Antibody Screen NEGATIVE Crossmatch See Detail Spec Expiration Date 11/12/20212346 Disposition Clinical Impression: Anemia, Hyponatremia, Elevated troponin I measurement Disposition: ADMITTED IP TO THIS [facility] Condition: Fair Is patient prescribed a controlled substance at d/c from ED?: No
[2021-11-09 03:24] LABS: Albumin 2.5 g/dL (3.5-5.0); Calcium 8.2 mg/dL (8.4-10.2); Potassium 4.3 mmol/L (3.5-5.1); Total Bilirubin 0.3 mg/dL (0.2-1.3); Total Protein 5.3 g/dL (6.3-8.2)
[2021-11-09 03:45] LABS: Basophils % (A) 0 %; Eosinophils # (A) 0.2 k/uL (0-0.7); Eosinophils % (A) 1 %; HCT 20.9 % (39.0-53.0); Lymphocytes # (A) 1.2 k/uL (1.0-4.8); Lymphocytes % (A) 10 %; MCHC 32.1 g/dL (31.0-37.0); MCV 93.6 fL (80.0-100.0); Mean Platelet Volume 8.1; Monocytes # (A) 0.9 k/uL (0-1.0); Monocytes % (A) 7 %; Neutrophils # (A) 9.8 k/uL (1.3-7.7); Neutrophils % (A) 80 %; Platelet Count 351 k/uL (150-450); RBC 2.23 m/uL (4.30-5.90); RDW 14.2 % (11.5-15.5); WBC 12.3 k/uL (3.8-10.6)
[2021-11-09 03:47] LABS: HGB 6.7 gm/dL (13.0-17.5)
[2021-11-09 05:00] LABS: Appearance,Urine Clear (Clear); Bilirubin,Urine Negative (Negative); Blood,Urine Negative (Negative); Color,Urine Yellow; Glucose,Urine (UA) Negative (Negative); Ketones,Urine Negative (Negative); Leukocyte Esterase,Urine Negative (Negative); Nitrite,Urine Negative (Negative); PH, Urine 5.5 (5.0-8.0); Protein,Urine Negative (Negative); Specific Gravity,Urine 1.013 (1.001-1.035); Urobilinogen,Urine <2.0 mg/dL (<2.0)
--- NOTE | 2021-11-09 05:20 | XR ---
EXAMINATION TYPE: XR chest 2V DATE OF EXAM: 11/09/2021 COMPARISON: 10/28/2021 HISTORY: Weakness TECHNIQUE: 2 view FINDINGS: There is 7 x 3 cm area of consolidation in the lateral right upper lobe. [place] are clear. Heart and mediastinum are normal. There is no pleural effusion. IMPRESSION: Right upper lobe consolidation not significantly different than recent exam. Normal heart .
[2021-11-09] MEDS ORDERED: NITROGLYCERIN SL TABS 0.4 MG TAB SUBLINGUAL PRN (06:12)
--- NOTE | 2021-11-09 10:32 | HP ---
HISTORY AND PHYSICAL CHIEF COMPLAINT: Fall with general debility, anemia and failure to thrive. HISTORY OF PRESENT ILLNESS: This is another admission. This gentleman was discharged yesterday, went home, fell, and was brought back in. His cannot manage him at home and this has been clearly established. At the present time there is no reasonable discharge plan that will work. He should either be in a senior care or in hospice. REVIEW OF SYSTEMS: He denies any focal pain. He is awake and alert. PHYSICAL EXAMINATION: He is pale, but this is his usual appearance due to his blood-loss anemia. Head, ears, eyes, nose, mouth and throat are unchanged. He has still has the abscess in the right lower mandibular arch on the buccal side. Chest demonstrates poor breath sounds with scattered rales. Cardiac exam demonstrates what sounds like sinus rhythm. The abdomen is soft and nontender without any masses. Extremities are normal. He is weak and he is dehydrated. IMPRESSION: 1. Frequent falling. 2. General debility and failure to thrive. 3. Chronic blood-loss anemia. 4. Carcinoma of the colon. 5. Adenocarcinoma of the lung. PLAN: Resume discharge plan with Swing [employer]. MMODL / IJN: [id number] /
[2021-11-09] MEDS: SYMBICORT 160-4.5 MCG INHALER INHALATION SCH (21:08)
[2021-11-09 21:25] LABS: HCT 25.7 % (39.0-53.0); HGB 8.1 gm/dL (13.0-17.5); MCH 29.6 pg (25.0-35.0); MCHC 31.5 g/dL (31.0-37.0); MCV 94.1 fL (80.0-100.0); Mean Platelet Volume 7.3; Platelet Count 399 k/uL (150-450); RBC 2.73 m/uL (4.30-5.90); RDW 14.4 % (11.5-15.5); WBC 16.5 k/uL (3.8-10.6)
[2021-11-09] MEDS: ALPRAZolam 0.25 MG TAB PO SCH (21:51)
[2021-11-09] MEDS: PRIMIDONE 50 MG TAB PO SCH (21:51)
[2021-11-09] MEDS: carvediloL 12.5 MG TAB PO SCH (21:51)
[2021-11-10 08:17] LABS: HCT 22.8 % (39.0-53.0); HGB 7.2 gm/dL (13.0-17.5); Hypochromasia Slight; MCH 29.8 pg (25.0-35.0); MCHC 31.7 g/dL (31.0-37.0); MCV 94.2 fL (80.0-100.0); Mean Platelet Volume 7.3; Platelet Count 366 k/uL (150-450); RBC 2.43 m/uL (4.30-5.90); RDW 14.9 % (11.5-15.5); WBC 11.4 k/uL (3.8-10.6)
[2021-11-10] MEDS: SYMBICORT 160-4.5 MCG INHALER INHALATION SCH ×2 (08:30→20:15)
[2021-11-10] MEDS ORDERED: HALOPERIDOL LACTATE 5 MG/ML 1 ML VIAL IM PRN ×2 (10:03→11:43)
[2021-11-10] MEDS ORDERED: HALOPERIDOL LACTATE 5 MG/ML 1 ML VIAL ONE (10:09)
[2021-11-10 10:53] LABS: LDL Cholesterol,Calculated 86.8 mg/dL (0.0-131.0)
[2021-11-10] MEDS: ALPRAZolam 0.25 MG TAB PO SCH ×3 (11:18→22:35)
[2021-11-10] MEDS: ASPIRIN 325 MG TAB PO SCH (11:18)
[2021-11-10] MEDS: carvediloL 12.5 MG TAB PO SCH ×2 (11:18→22:35)
[2021-11-10] MEDS: PRIMIDONE 50 MG TAB PO SCH ×3 (11:18→22:35)
[2021-11-10 11:31] LABS: Calcium 8.5 mg/dL (8.4-10.2); Potassium 4.7 mmol/L (3.5-5.1)
[2021-11-10] MEDS: FAMOTIDINE 20 MG TAB PO SCH (13:15)
[2021-11-10] MEDS: SODIUM CHLORIDE 0.9% 1,000 ML IV SCH ×2 (14:35→22:35)
[2021-11-10] MEDS: amLODIPine 5 MG TAB PO SCH (14:53)
[2021-11-10] MEDS: lisinopriL 10 MG TAB PO SCH (14:53)
[2021-11-10] MEDS: CHLORHEXIDINE GLUCONATE 15 ML CUP MUCOUS MEM SCH (22:35)
[2021-11-11] MEDS ORDERED: KETOROLAC 15 MG/ML 1 ML VIAL IVP SCH
[2021-11-11] MEDS: AMPICILLIN-SULBACTAM 3 GM in SODIUM CHLORIDE 0.9% 100 ML IVPB SCH ×5 (00:42→23:29)
[2021-11-11] MEDS ORDERED: KETOROLAC 15 MG/ML 1 ML VIAL IVP PRN (04:41)
[2021-11-11 05:12] LABS: Basophils % (A) 0 %; Eosinophils # (A) 0.2 k/uL (0-0.7); Eosinophils % (A) 3 %; HGB 7.1 gm/dL (13.0-17.5); Hypochromasia Slight; Lymphocytes # (A) 1.1 k/uL (1.0-4.8); Lymphocytes % (A) 13 %; MCH 30.3 pg (25.0-35.0); MCHC 32.2 g/dL (31.0-37.0); MCV 94.2 fL (80.0-100.0); Mean Platelet Volume 7.2; Monocytes # (A) 0.6 k/uL (0-1.0); Monocytes % (A) 6 %; Neutrophils # (A) 6.7 k/uL (1.3-7.7); Neutrophils % (A) 76 %; Platelet Count 351 k/uL (150-450); RBC 2.34 m/uL (4.30-5.90); RDW 14.8 % (11.5-15.5); Reticulocyte % 2.5 % (0.5-2.0); WBC 8.8 k/uL (3.8-10.6)
[2021-11-11 05:21] LABS: Partial Thromboplastin Time 25.4 sec (22.0-30.0); Prothrombin Time 11.3 sec (9.0-12.0)
[2021-11-11 05:29] LABS: ALT 38 U/L (4-49); AST 44 U/L (17-59); African American GFR (CKD) >90 (>60 ml/min/1.73 sqM); Albumin 2.2 g/dL (3.5-5.0); Alkaline Phosphatase 79 U/L (38-126); Anion Gap 3 mmol/L; Blood Urea Nitrogen 19 mg/dL (9-20); Calcium 7.9 mg/dL (8.4-10.2); Carbon Dioxide 28 mmol/L (22-30); Chloride 99 mmol/L (98-107); Glucose 94 mg/dL (74-99); LDH 598 U/L (313-618); Magnesium 2.1 mg/dL (1.6-2.3); Non-African American GFR(CKD) 82 (>60 ml/min/1.73 sqM); Phosphorus 3.3 mg/dL (2.5-4.5); Potassium 3.9 mmol/L (3.5-5.1); Sodium 130 mmol/L (137-145); Total Bilirubin 0.3 mg/dL (0.2-1.3); Total Protein 4.7 g/dL (6.3-8.2)
[2021-11-11] MEDS: SODIUM CHLORIDE 0.9% 1,000 ML IV SCH ×2 (06:28→18:46)
[2021-11-11 06:37] LABS: Appearance,Urine Clear (Clear); Bilirubin,Urine Negative (Negative); Blood,Urine Negative (Negative); Color,Urine Yellow; Glucose,Urine (UA) Negative (Negative); Ketones,Urine Trace (Negative); Leukocyte Esterase,Urine Negative (Negative); Nitrite,Urine Negative (Negative); Protein,Urine Negative (Negative); Specific Gravity,Urine 1.013 (1.001-1.035); Urobilinogen,Urine <2.0 mg/dL (<2.0)
[2021-11-11] MEDS: SYMBICORT 160-4.5 MCG INHALER INHALATION SCH ×2 (07:24→19:36)
[2021-11-11] MEDS: CHLORHEXIDINE GLUCONATE 15 ML CUP MUCOUS MEM SCH ×2 (09:18→20:42)
[2021-11-11] MEDS: ALPRAZolam 0.25 MG TAB PO SCH ×3 (09:18→20:43)
[2021-11-11] MEDS: ASPIRIN 325 MG TAB PO SCH (09:18)
[2021-11-11] MEDS: carvediloL 12.5 MG TAB PO SCH ×2 (09:18→20:43)
[2021-11-11] MEDS: PRIMIDONE 50 MG TAB PO SCH ×3 (09:18→20:43)
--- NOTE | 2021-11-11 09:55 | P.PN ---
Subjective Progress Note Date: 11/10/21 Patient is a 81-year-old male with a known history of hypertension, recently diagnosed metastatic lung cancer was recently admitted to the hospital due to acute syncopal episode. Patient was also treated for tooth abscess. Patient was seen by oncology during last admission. Patient was sent home with alliative care and home care and is planning for immunotherapy palliative as an outpatient. Patient also has adenocarcinoma of the colon. Was anemic on admission with hemoglobin level 6.7. Patient is still 1 unit of PRBC transfusion. Patient presented back to the hospital due to generalized weakness and fatigue and fell at home. Patient's cannot manage him at home and was admitted to hospital for possible facility transfer with hospice care. 11/10/2021. Currently in the MICU as of overflow. Patient is agitated this morning and was given a dose of Haldol. Refused to get IV line and has been yelling at the nursing staff this morning. Advised patient is afebrile. No complaints of chest pain or shortness of breath. Pain is fairly controlled. Laboratory data showed WBC 11.4 hemoglobin 7.2 and platelets 366 sodium went up to 129 potassium 4.7 chloride 101 bicarb is 24 BUN 23 and creatinine 0.92. Oncology was consulted. Current medications reviewed. Objective - Vital Signs Vital signs: Vital Signs Temp 97.9 F 11/10/21 04:00 Pulse 86 11/10/21 02:00 Resp 16 11/10/21 04:00 BP 109/49 11/10/21 04:00 Pulse Ox 95 11/10/21 04:00 Intake & Output 11/09/21 11/10/21 11/10/21 18:59 06:59 18:59 Intake Total 310 100 Output Total 400 Balance 310 -300 Weight 71 kg Intake: Oral 100 Blood Product 310 Rc As-1 Unit 310 [id number] Output: Urine 400 Other: Voiding Method Urinal # Voids 5 - Exam PHYSICAL EXAMINATION: Patient is lying in the bed comfortably, no acute distress, awake alert and confused and agitated. HEENT: Normocephalic. Neck is supple. Pupils reactive. Nostrils clear. Oral cavity is moist. Neck reveals no JVD, carotid bruits, or thyromegaly. CHEST EXAMINATION: Trachea is central. Symmetrical expansion. Bibasilar diminished sounds. No wheezing or rhonchi.. CARDIAC: Normal S1, S2 with no gallops. No murmurs ABDOMEN: Soft. Bowel sounds normal. No organomegaly. No abdominal bruits. Extremities: reveal no edema. No clubbing or cyanosis Neurologically awake, alert, oriented. confused.. No gross focal deficits noted Skin: No rash or skin lesions. Psychiatric: Not cooperative Musculoskeletal: No joint swelling or deformity. Normal range of motion. - Labs CBC & Chem 7: 11/11/21 04:56 11/11/21 04:56 Labs: Abnormal Lab Results - Last 24 Hours (Table) 11/09/21 11/09/21 11/09/21 Range/Units 05:47 08:13 10:59 WBC (3.8-10.6) k/uL RBC (4.30-5.90) m/uL Hgb (13.0-17.5) gm/dL Hct (39.0-53.0) % Troponin I 0.057 H* 0.058 H* (0.000-0.034) ng/mL Crossmatch See Detail 11/09/21 11/10/21 Range/Units 21:12 07:23 WBC 16.5 H 11.4 H (3.8-10.6) k/uL RBC 2.73 L 2.43 L (4.30-5.90) m/uL Hgb 8.1 L 7.2 L (13.0-17.5) gm/dL Hct 25.7 L 22.8 L (39.0-53.0) % Troponin I (0.000-0.034) ng/mL Crossmatch Assessment and Plan Assessment: Generalized weakness and falls at home. Hypovolemic hyponatremia Anemia of chronic disease Elevated troponin/leak possible demand ischemia Hypoalbuminemia due to poor oral intake. Mild to moderate protein calorie malnutrition Metastatic lung cancer Colon mass Hypertension Hyperlipidemia Asthma/COPD not in exacerbation DVT prophylaxis with heparin subcu GI prophylaxis Plan: Patient will be started on gentle IV hydration and monitor respiratory status closely. Monitor H&H. Patient is currently agitated and refusing all medications and pulling out IV lines.. Restrained and will follow-up closely. We will consult oncology service for evaluation. Social work consult for possible facility transfer with hospice care. Patient is unable to take care of himself at home. Time with Patient: Greater than 30
[2021-11-11] MEDS: FAMOTIDINE 20 MG TAB PO SCH (15:04)
[2021-11-11] MEDS: amLODIPine 5 MG TAB PO SCH (16:25)
[2021-11-11] MEDS: lisinopriL 10 MG TAB PO SCH (16:25)
--- NOTE | 2021-11-11 18:36 | P.PN ---
Subjective Progress Note Date: 11/11/21 Principal diagnosis: Mental Status Changes and weakness Still in ICU, confused. Objective - Vital Signs Vital signs: Vital Signs Temp 98.3 F 11/11/21 08:00 Pulse 78 11/11/21 08:00 Resp 17 11/11/21 08:00 BP 106/41 11/11/21 08:00 Pulse Ox 97 11/11/21 08:00 Intake & Output 11/10/21 11/11/21 11/11/21 18:59 06:59 18:59 Intake Total 1200 Output Total 450 Balance -450 1200 Weight 71 kg 70.3 kg Intake: IV 1200 Ampicillin-Sulbactam 3 gm 200 In Sodium Chloride 0.9% 100 ml @ 200 mls/hr IVPB Q6HR JAYLEN Rx#:[id number] Sodium Chloride 0.9% 1, 1000 000 ml @ 100 mls/hr IV . Q10H JAYLEN Rx#:[id number] Output: Urine 450 Other: Voiding Method Urinal Urinal Urinal # Voids 0 5 - Exam - Constitutional General appearance: average body habitus COnfused, restraints - EENT Eyes: anicteric sclerae, EOMI ENT: hard of hearing - Neck Neck: no lymphadenopathy - Respiratory Respiratory: bilateral: diminished - Cardiovascular Rhythm: regular Heart sounds: normal: S1, S2 Abnormal Heart Sounds: no systolic murmur, no diastolic murmur, no rub, no S3 Gallop, no S4 Gallop, no click, no other foot Peripheral Edema: bilateral: Trace - Gastrointestinal General gastrointestinal: no absent bowel sounds, no decreased bowel sounds, no distended, no hepatomegaly, no hyperactive bowel sounds, normal bowel sounds, no organomegaly, no rigid, no scaphoid, soft, no splenomegaly, no tenderness, no umbilical hernia, no ventral hernia - Neurologic Neurologic: CNII-XII intact (Grossly) - Musculoskeletal Musculoskeletal: generalized weakness COnfused - Labs CBC & Chem 7: 11/11/21 04:56 11/11/21 04:56 Labs: Abnormal Lab Results - Last 24 Hours (Table) 11/11/21 11/11/21 11/11/21 Range/Units 04:56 04:56 06:05 RBC 2.34 L (4.30-5.90) m/uL Hgb 7.1 L (13.0-17.5) gm/dL Hct 22.0 L (39.0-53.0) % Retic Count 2.5 H (0.5-2.0) % Sodium 130 L (137-145) mmol/L Calcium 7.9 L (8.4-10.2) mg/dL Total Protein 4.7 L (6.3-8.2) g/dL Albumin 2.2 L (3.5-5.0) g/dL Urine Ketones Trace H (Negative) Microbiology - Last 24 Hours (Table) 11/10/21 22:30 Gram Stain - Preliminary Mouth Tissue Culture - Preliminary Assessment and Plan (1) Colonic mass Narrative/Plan: Possibly blood loss from malignancy. Unable to obtain accurate iron studies as patient is post transfusion Current Visit: No Status: Acute Priority: High Code(s): K63.89 - OTHER SPECIFIED DISEASES OF INTESTINE SNOMED Code(s): 202558284 (2) Dental abscess Narrative/Plan: Treated with antibiotics during last visit - Draw blood cultures for full work -up Current Visit: No Status: Acute Priority: High Code(s): K04.7 - PERIAPICAL ABSCESS WITHOUT SINUS SNOMED Code(s): 832322366 (3) Generalized weakness Narrative/Plan: Multifactorial likelt related to symptomatic anemia and infection Current Visit: No Status: Acute Priority: High Code(s): R53.1 - WEAKNESS SNOMED Code(s): 72825263 (4) Leukocytosis Narrative/Plan: Further infection work-up warranted Current Visit: No Status: Acute Code(s): D72.829 - ELEVATED WHITE BLOOD CELL COUNT, UNSPECIFIED SNOMED Code(s): 936877059 (5) Lung cancer Narrative/Plan: Plan for outpatient treatment with PDL1 immune therapy palliaitive intent once improves Current Visit: No Status: Acute Priority: High Code(s): C34.90 - MALIGNANT NEOPLASM OF UNSP PART OF UNSP BRONCHUS OR LUNG SNOMED Code(s): 290343471 (6) Mental status alteration Narrative/Plan: Recent MRI Brain no evidence of metastatic cancer, recent tooth infection and elevated troponin concern for progressive infection although patient refusing further blood draws ands care. No family at bedside. Current Visit: Yes Status: Acute Code(s): R41.82 - ALTERED MENTAL STATUS, UNSPECIFIED SNOMED Code(s): 886429951 Plan: It is felt patient is not able to fully understand diagnosis and/or that treatment of cancers are palliaitve intent, he has many social and transportation issue, there is question of safety in home given his intermittent confusion. Hospice would be approriate if he and/or his family chooses to return to this plan as it is felt the risk of patient being discharged home, p otentially unable to safely care for himself in order to receive palliaitive immune therapy would be a larger risk then residing in ECF with 24 hour care with/without hospice care to ensure quality of life and safety. No family at bedside, will attempt to contact rebecca [place]
--- NOTE | 2021-11-11 18:37 | P.CONS ---
History of Present Illness - Reason for Consult Consult date: 11/10/21 Cancer Requesting physician: Dominik Ramos - Chief Complaint Weakness and SYmptomatic Anemia - History of Present Illness Patient presents after recent discharge from hospital stay for weakness, he "slumped over" apparently and was unable to get back up. EMS had brought to [facility] ER for further evaluation and he was found to have hemoglobin <7. He has a recent diagnosis of colon mass and lung mass. Biopsy proven malignancy positive pDL1 plan was to start on treatment with immune therapy for palliative intent. THere has been some social issues with transportation and caregivers versus an ECF (which he apparently does not qualify for and would not be able to receive cancer treatment if he was discharge to ECF), this was sorted out and a family member had agreed to drive him to and from appointments, although unable to start as less than 2 short days after discharge he has returned do to above. He is admitted to ICU, elevated Troponin. I have spoken to nurse, patient in restraints and refusing all blood draws, he is very confused todya Review of Systems ROS unobtainable: due to mental status All systems: negative Past Medical History Past Medical History: Cancer, Hypertension, Syncope Additional Past Medical History / Comment(s): Lung cancer, skin cancer and colon cancer, History of Any Multi-Drug Resistant Organisms: None Reported Past Surgical History: No Surgical Hx Reported Past Anesthesia/Blood Transfusion Reactions: No Reported Reaction Past Psychological History: No Psychological Hx Reported Smoking Status: Former smoker Past Alcohol Use History: None Reported Past Drug Use History: None Reported - Past Family History Father Family Medical History: Unable to Obtain Mother Family Medical History: Unable to Obtain Medications and Allergies Home Medications Medication Instructions Recorded Confirmed Type Carvedilol [Coreg] 12.5 mg PO DAILY@0800 07/15/20 11/09/21 History Budesonide/Formoterol Fumarate 2 puff INHALATION RT-BID 09/23/21 11/09/21 History [Symbicort 160-4.5 Mcg Inhaler] Famotidine 20 mg PO DAILY@1200 09/23/21 11/09/21 History Primidone [Mysoline] 50 mg PO TID@0800,1400,2200 09/23/21 11/09/21 History amLODIPine BESYLATE/BENAZEPRIL 1 cap PO DAILY@1600 09/23/21 11/09/21 History [Lotrel 5-10 MG] Carvedilol [Coreg] 25 mg PO HS 10/28/21 11/09/21 History ALPRAZolam [Xanax] 0.25 mg PO TID #30 tab 11/08/21 11/09/21 Rx Allergies Allergy/AdvReac Type Severity Reaction Status Date / Time No Known Allergies Allergy Verified 11/09/21 07:25 Physical Exam Vitals: Vital Signs Temp Pulse Pulse Pulse Resp BP BP 11/10/21 10:21 98.3 F 83 14 127/65 11/10/21 04:00 97.9 F 16 109/49 11/10/21 02:00 86 16 11/10/21 00:00 97.6 F 14 91/47 11/09/21 20:10 98.1 F 87 18 111/54 11/09/21 20:00 97.8 F 86 15 110/67 Pulse Ox 11/10/21 10:21 97 11/10/21 04:00 95 11/10/21 02:00 11/10/21 00:00 98 11/09/21 20:10 98 11/09/21 20:00 97 Intake and Output 11/09/21 11/10/21 11/10/21 22:59 06:59 14:59 Intake Total 50 50 Output Total 400 Balance 50 -350 Intake: Oral 50 50 Output: Urine 400 Other: Voiding Method Urinal Urinal Urinal # Voids 5 Weight 71 kg - Constitutional General appearance: average body habitus COnfused, restraints - EENT Eyes: anicteric sclerae, EOMI ENT: hard of hearing - Neck Neck: no lymphadenopathy - Respiratory Respiratory: bilateral: diminished - Cardiovascular Rhythm: regular Heart sounds: normal: S1, S2 Abnormal Heart Sounds: no systolic murmur, no diastolic murmur, no rub, no S3 Gallop, no S4 Gallop, no click, no other foot Peripheral Edema: bilateral: Trace - Gastrointestinal General gastrointestinal: no absent bowel sounds, no decreased bowel sounds, no distended, no hepatomegaly, no hyperactive bowel sounds, normal bowel sounds, no organomegaly, no rigid, no scaphoid, soft, no splenomegaly, no tenderness, no umbilical hernia, no ventral hernia - Neurologic Neurologic: CNII-XII intact (Grossly) - Musculoskeletal Musculoskeletal: generalized weakness Confused and in restraints Results CBC & Chem 7: 11/10/21 07:23 11/10/21 10:56 Labs: Abnormal Lab Results - Last 24 Hours (Table) 11/09/21 11/09/21 11/10/21 Range/Units 05:47 21:12 07:23 WBC 16.5 H (3.8-10.6) k/uL RBC 2.73 L (4.30-5.90) m/uL Hgb 8.1 L (13.0-17.5) gm/dL Hct 25.7 L (39.0-53.0) % Sodium (137-145) mmol/L BUN (9-20) mg/dL HDL Cholesterol 30.00 L (40.00-60.00) mg/dL Crossmatch See Detail 11/10/21 11/10/21 Range/Units 07:23 10:56 WBC 11.4 H (3.8-10.6) k/uL RBC 2.43 L (4.30-5.90) m/uL Hgb 7.2 L (13.0-17.5) gm/dL Hct 22.8 L (39.0-53.0) % Sodium 129 L (137-145) mmol/L BUN 23 H (9-20) mg/dL HDL Cholesterol (40.00-60.00) mg/dL Crossmatch Chest x-ray: report reviewed Assessment and Plan (1) Colonic mass Narrative/Plan: Possibly blood loss from malignancy. Unable to obtain accurate iron studies as patient is post transfusion Current Visit: No Status: Acute Priority: High Code(s): K63.89 - OTHER SPECIFIED DISEASES OF INTESTINE SNOMED Code(s): 108136535 (2) Dental abscess Narrative/Plan: Treated with antibiotics during last visit - Draw blood cultures for full work -up Current Visit: No Status: Acute Priority: High Code(s): K04.7 - PERIAPICAL ABSCESS WITHOUT SINUS SNOMED Code(s): 822363440 (3) Generalized weakness Narrative/Plan: Multifactorial likelt related to symptomatic anemia and infection Current Visit: No Status: Acute Priority: High Code(s): R53.1 - WEAKNESS SNOMED Code(s): 85724325 (4) Leukocytosis Narrative/Plan: Further infection work-up warranted Current Visit: No Status: Acute Code(s): D72.829 - ELEVATED WHITE BLOOD CELL COUNT, UNSPECIFIED SNOMED Code(s): 144336700 (5) Lung cancer Narrative/Plan: Plan for outpatient treatment with PDL1 immune therapy palliaitive intent once improves Current Visit: No Status: Acute Priority: High Code(s): C34.90 - MALIGNANT NEOPLASM OF UNSP PART OF UNSP BRONCHUS OR LUNG SNOMED Code(s): 171475015 (6) Mental status alteration Narrative/Plan: Recent MRI Brain no evidence of metastatic cancer, recent tooth infection and elevated troponin concern for progressive infection although patient refusing further blood draws ands care. No family at bedside. Current Visit: Yes Status: Acute Code(s): R41.82 - ALTERED MENTAL STATUS, UNSPECIFIED SNOMED Code(s): 172671734
[2021-11-11 19:37] LABS: % Iron Saturation 13.59 (15.00-50.00)
[2021-11-12 06:12] LABS: Basophils # (A) 0.1 k/uL (0-0.2); Basophils % (A) 1 %; Eosinophils # (A) 0.2 k/uL (0-0.7); Eosinophils % (A) 2 %; HCT 22.5 % (39.0-53.0); HGB 7.1 gm/dL (13.0-17.5); Hypochromasia Slight; Lymphocytes # (A) 1.2 k/uL (1.0-4.8); Lymphocytes % (A) 13 %; MCH 29.9 pg (25.0-35.0); MCHC 31.6 g/dL (31.0-37.0); MCV 94.8 fL (80.0-100.0); Mean Platelet Volume 7.6; Monocytes # (A) 0.6 k/uL (0-1.0); Monocytes % (A) 6 %; Neutrophils # (A) 7.5 k/uL (1.3-7.7); Neutrophils % (A) 77 %; Platelet Count 348 k/uL (150-450); RBC 2.38 m/uL (4.30-5.90); RDW 14.5 % (11.5-15.5); WBC 9.8 k/uL (3.8-10.6)
[2021-11-12 06:28] LABS: African American GFR (CKD) >90 (>60 ml/min/1.73 sqM); Anion Gap 4 mmol/L; Blood Urea Nitrogen 16 mg/dL (9-20); Calcium 7.8 mg/dL (8.4-10.2); Carbon Dioxide 30 mmol/L (22-30); Chloride 97 mmol/L (98-107); Glucose 103 mg/dL (74-99); Non-African American GFR(CKD) 82 (>60 ml/min/1.73 sqM); Sodium 131 mmol/L (137-145)
[2021-11-12] MEDS: AMPICILLIN-SULBACTAM 3 GM in SODIUM CHLORIDE 0.9% 100 ML IVPB SCH ×3 (06:50→19:59)
[2021-11-12] MEDS: SODIUM CHLORIDE 0.9% 1,000 ML IV SCH ×2 (06:51→13:59)
[2021-11-12] MEDS: SYMBICORT 160-4.5 MCG INHALER INHALATION SCH ×2 (08:25→19:45)
[2021-11-12] MEDS: ALPRAZolam 0.25 MG TAB PO SCH ×3 (08:38→21:25)
[2021-11-12] MEDS: PRIMIDONE 50 MG TAB PO SCH ×3 (08:38→21:25)
[2021-11-12] MEDS: ASPIRIN 325 MG TAB PO SCH (08:38)
[2021-11-12] MEDS: carvediloL 12.5 MG TAB PO SCH ×2 (08:38→21:25)
[2021-11-12] MEDS: CHLORHEXIDINE GLUCONATE 15 ML CUP MUCOUS MEM SCH (08:38)
--- NOTE | 2021-11-12 09:57 | P.PN ---
Subjective Progress Note Date: 11/11/21 Patient is a 81-year-old male with a known history of hypertension, recently diagnosed metastatic lung cancer was recently admitted to the hospital due to acute syncopal episode. Patient was also treated for tooth abscess. Patient was seen by oncology during last admission. Patient was sent home with alliative care and home care and is planning for immunotherapy palliative as an outpatient. Patient also has adenocarcinoma of the colon. Was anemic on admission with hemoglobin level 6.7. Patient is still 1 unit of PRBC transfusion. Patient presented back to the hospital due to generalized weakness and fatigue and fell at home. Patient's cannot manage him at home and was admitted to hospital for possible facility transfer with hospice care. 11/10/2021. Currently in the MICU as of overflow. Patient is agitated this morning and was given a dose of Haldol. Refused to get IV line and has been yelling at the nursing staff this morning. Advised patient is afebrile. No complaints of chest pain or shortness of breath. Pain is fairly controlled. Laboratory data showed WBC 11.4 hemoglobin 7.2 and platelets 366 sodium went up to 129 potassium 4.7 chloride 101 bicarb is 24 BUN 23 and creatinine 0.92. Oncology was consulted. 11/11/2021 Patient is currently resting in the bed comfortably. Awake alert and oriented. Mental status is much improved today. Off restraints. Patient is able to tolerate oral diet. No nausea vomiting. Abdominal pain is controlled with medications. No fever no chills. No cough or sputum production. Laboratory data showed no receipt 0.8 hemoglobin 7.1 platelets 351 Sodium 1:30 potassium 3.9 chloride 919 and creatinine 0.8. Calcium 7.9, iron profile showed iron level XVIII TIBC 133 and percent saturation is 13.5 and transferrin 95.1. CEA 0.8 vitamin B12 5477 and folate 3.6 next line oncology is on board. Planning for immunotherapy palliative. Patient is unable to take care of himself at home. Recommends ECF transfer. Current medications reviewed. Objective - Vital Signs Vital signs: Vital Signs Temp 97.6 F 11/11/21 14:00 Pulse 75 11/11/21 14:00 Resp 14 11/11/21 14:00 BP 105/58 11/11/21 14:00 Pulse Ox 98 11/11/21 14:00 Intake & Output 11/10/21 11/11/21 11/11/21 18:59 06:59 18:59 Intake Total 1200 Output Total 450 Balance -450 1200 Weight 71 kg 70.3 kg Intake: IV 1200 Ampicillin-Sulbactam 3 gm 200 In Sodium Chloride 0.9% 100 ml @ 200 mls/hr IVPB Q6HR JAYLEN Rx#:[id number] Sodium Chloride 0.9% 1, 1000 000 ml @ 100 mls/hr IV . Q10H JAYLEN Rx#:[id number] Output: Urine 450 Other: Voiding Method Urinal Urinal Urinal # Voids 0 5 - Exam PHYSICAL EXAMINATION: Patient is lying in the bed comfortably, no acute distress, awake alert and oriented. HEENT: Normocephalic. Neck is supple. Pupils reactive. Nostrils clear. Oral cavity is moist. Neck reveals no JVD, carotid bruits, or thyromegaly. CHEST EXAMINATION: Trachea is central. Symmetrical expansion. Bibasilar diminished sounds. No wheezing or rhonchi.. CARDIAC: Normal S1, S2 with no gallops. No murmurs ABDOMEN: Soft. Bowel sounds normal. No organomegaly. No abdominal bruits. Extremities: reveal no edema. No clubbing or cyanosis Neurologically awake, alert, oriented. . No gross focal deficits noted Skin: No rash or skin lesions. Psychiatric: Cooperative. Musculoskeletal: No joint swelling or deformity. Normal range of motion. - Labs CBC & Chem 7: 11/12/21 06:00 11/12/21 05:57 Labs: Abnormal Lab Results - Last 24 Hours (Table) 11/11/21 11/11/21 11/11/21 Range/Units 04:56 04:56 06:05 RBC 2.34 L (4.30-5.90) m/uL Hgb 7.1 L (13.0-17.5) gm/dL Hct 22.0 L (39.0-53.0) % Retic Count 2.5 H (0.5-2.0) % Sodium 130 L (137-145) mmol/L Calcium 7.9 L (8.4-10.2) mg/dL Total Protein 4.7 L (6.3-8.2) g/dL Albumin 2.2 L (3.5-5.0) g/dL Urine Ketones Trace H (Negative) Microbiology - Last 24 Hours (Table) 11/10/21 22:30 Gram Stain - Preliminary Mouth Tissue Culture - Preliminary Assessment and Plan Assessment: Generalized weakness and falls at home. Due to dehydration and anemia Hypovolemic hyponatremia Anemia of chronic disease Elevated troponin/leak possible demand ischemia Acute delirium. Improved now. Hypoalbuminemia due to poor oral intake. Mild to moderate protein calorie malnutrition Metastatic lung cancer Colon mass Hypertension Hyperlipidemia Asthma/COPD not in exacerbation DVT prophylaxis with heparin subcu GI prophylaxis Plan: Patient will be started on gentle IV hydration and monitor respiratory status closely. Monitor H&H. Patient is more awake and alert. Able to tolerate oral diet. Less agitated today. Office changes... Oncology is on board and is planning for palliative chemotherapy.. Social work consult for possible facility transfer with hospice care. Patient is unable to take care of himself at home. Time with Patient: Greater than 30
[2021-11-12] MEDS: FAMOTIDINE 20 MG TAB PO SCH (11:49)
[2021-11-12] MEDS: FOLIC ACID 1 MG TAB PO SCH (11:50)
--- NOTE | 2021-11-12 14:48 | P.PN ---
Subjective Progress Note Date: 11/12/21 Principal diagnosis: Mental Status Changes and weakness I have called and left message for daughter tammy to discuss goals of care, no answer or return call as of yet. I did discuss with patient's RN. I have not seen any family visitors during rounds. Discussed with RN and with Case management and plan is for ECF with transition Objective - Vital Signs Vital signs: Vital Signs Temp 97.6 F 11/12/21 08:00 Pulse 77 11/12/21 08:00 Resp 16 11/12/21 08:00 BP 115/53 11/12/21 08:00 Pulse Ox 99 11/12/21 08:30 Intake & Output 11/11/21 11/12/21 11/12/21 18:59 06:59 18:59 Intake Total 1200 800 750 Balance 1200 800 750 Weight 70 kg 70 kg Intake: IV 200 300 Ampicillin-Sulbactam 3 gm 200 200 In Sodium Chloride 0.9% 100 ml @ 200 mls/hr IVPB Q6HR JAYLEN Rx#:[id number] Sodium Chloride 0.9% 1, 100 000 ml @ 100 mls/hr IV . Q10H JAYLEN Rx#:[id number] Oral 1000 500 750 Other: Voiding Method Urinal Urinal Urinal # Voids 4 6 2 # Bowel Movements 1 - Labs CBC & Chem 7: 11/12/21 06:00 11/12/21 05:57 Labs: Abnormal Lab Results - Last 24 Hours (Table) 11/11/21 11/11/21 11/12/21 Range/Units 10:24 10:24 05:57 RBC (4.30-5.90) m/uL Hgb (13.0-17.5) gm/dL Hct (39.0-53.0) % Sodium 131 L (137-145) mmol/L Chloride 97 L (98-107) mmol/L Glucose 103 H (74-99) mg/dL Calcium 7.8 L (8.4-10.2) mg/dL Iron 18 L (65-175) ug/dL TIBC 133 L (228-460) ug/dL % Saturation 13.59 L (15.00-50.00) Transferrin 95.1 L (204.0-354.0) mg/dL Ferritin 964.0 H (22.0-322.0) ng/mL Folate 3.60 L (4.40-31.00) ng/mL 11/12/21 Range/Units 06:00 RBC 2.38 L (4.30-5.90) m/uL Hgb 7.1 L (13.0-17.5) gm/dL Hct 22.5 L (39.0-53.0) % Sodium (137-145) mmol/L Chloride (98-107) mmol/L Glucose (74-99) mg/dL Calcium (8.4-10.2) mg/dL Iron (65-175) ug/dL TIBC (228-460) ug/dL % Saturation (15.00-50.00) Transferrin (204.0-354.0) mg/dL Ferritin (22.0-322.0) ng/mL Folate (4.40-31.00) ng/mL Microbiology - Last 24 Hours (Table) 11/11/21 10:35 Blood Culture - Preliminary Blood No Growth after 24 hours 11/11/21 10:24 Blood Culture - Preliminary Blood No Growth after 24 hours Assessment and Plan (1) Colonic mass Narrative/Plan: Possibly blood loss from malignancy. Unable to obtain accurate iron studies as patient is post transfusion Current Visit: No Status: Acute Priority: High Code(s): K63.89 - OTHER SPECIFIED DISEASES OF INTESTINE SNOMED Code(s): 756942644 (2) Dental abscess Narrative/Plan: Treated with antibiotics during last visit - Draw blood cultures for full work -up Current Visit: No Status: Acute Priority: High Code(s): K04.7 - PERIAPICAL ABSCESS WITHOUT SINUS SNOMED Code(s): 112682061 (3) Generalized weakness Narrative/Plan: Multifactorial likelt related to symptomatic anemia and infection Current Visit: No Status: Acute Priority: High Code(s): R53.1 - WEAKNESS SNOMED Code(s): 82935507 (4) Leukocytosis Narrative/Plan: Further infection work-up warranted Current Visit: No Status: Acute Code(s): D72.829 - ELEVATED WHITE BLOOD CELL COUNT, UNSPECIFIED SNOMED Code(s): 373895282 (5) Lung cancer Narrative/Plan: Plan for outpatient treatment with PDL1 immune therapy palliaitive intent once improves Current Visit: No Status: Acute Priority: High Code(s): C34.90 - MALIGNANT NEOPLASM OF UNSP PART OF UNSP BRONCHUS OR LUNG SNOMED Code(s): 919184624 (6) Mental status alteration Narrative/Plan: Recent MRI Brain no evidence of metastatic cancer, recent tooth infection and elevated troponin concern for progressive infection although patient refusing further blood draws ands care. No family at bedside. Current Visit: Yes Status: Acute Code(s): R41.82 - ALTERED MENTAL STATUS, UNSPECIFIED SNOMED Code(s): 737091520 Plan: It is felt patient is not able to fully understand diagnosis and/or that treatment of cancers are palliaitve intent, he has many social and transportation issue, there is question of safety in home given his intermittent confusion. Hospice would be approriate if he and/or his family chooses to return to this plan as it is felt the risk of patient being discharged home, potentially unable to safely care for himself in order to receive palliative immune therapy would be a larger risk then residing in ECF with 24 hour care with/without hospice care to ensure quality of life and safety. Message left for daughter Tammy, have not received call back, I spoke to daughter Jennifer and she is frustrated he has fallen at home and is very weak and confused, yet not able to have rehabilitation. After being ineligible for ECF after last stay he fell at home requiring ICU and hospital stay for symptomatic anemia, retraints for confusion. If treatment is an option he will need ECF rehab first to improve performance - [facility]
[2021-11-12] MEDS: amLODIPine 5 MG TAB PO SCH (15:17)
[2021-11-12] MEDS: lisinopriL 10 MG TAB PO SCH (15:18)
[2021-11-13] MEDS: AMPICILLIN-SULBACTAM 3 GM in SODIUM CHLORIDE 0.9% 100 ML IVPB SCH ×5 (00:29→23:53)
[2021-11-13] MEDS: SODIUM CHLORIDE 0.9% 1,000 ML IV SCH ×3 (00:32→23:54)
[2021-11-13] MEDS: CHLORHEXIDINE GLUCONATE 15 ML CUP MUCOUS MEM SCH ×3 (00:32→21:01)
[2021-11-13] MEDS: FOLIC ACID 1 MG TAB PO SCH (07:13)
[2021-11-13] MEDS: ALPRAZolam 0.25 MG TAB PO SCH ×3 (07:13→21:01)
[2021-11-13] MEDS: PRIMIDONE 50 MG TAB PO SCH ×3 (07:13→21:01)
[2021-11-13] MEDS: ASPIRIN 325 MG TAB PO SCH (07:14)
[2021-11-13] MEDS: carvediloL 12.5 MG TAB PO SCH ×2 (09:28→21:01)
[2021-11-13] MEDS: SYMBICORT 160-4.5 MCG INHALER INHALATION SCH ×2 (09:36→19:30)
[2021-11-13 10:53] LABS: Methylmalonic Acid 0.31 umol/L (<0.40)
[2021-11-13] MEDS: FAMOTIDINE 20 MG TAB PO SCH (12:05)
[2021-11-13 12:46] LABS: HCT 17.7 % (39.6-50.0); HGB 5.5 g/dL (13.0-17.0); MCH 29.6 pg (27.0-32.0); MCHC 31.1 g/dL (32.0-37.0); MCV 95.2 fL (80.0-97.0); Mean Platelet Volume 9.9 fL (9.5-12.2); NRBC Per 100 WBC 0 /100 WBCS (0.0-0.0); Platelet Count 309 X 10*3/uL (140-440); RBC 1.86 X 10*6/uL (4.40-5.60); RDW 14.7 % (11.5-14.5); WBC 10.24 X 10*3/uL (4.50-10.00)
[2021-11-13 12:51] LABS: African American GFR (CKD) 80.9 (60.0-200.0); Anion Gap 7.5 mmol/L (10.00-18.00); BUN/Creat Ratio 24.5 Ratio (12.00-20.00); Blood Urea Nitrogen 24.5 mg/dL (9.0-27.0); Calcium 7.9 mg/dL (8.7-10.3); Carbon Dioxide 25.5 mmol/L (20.0-27.5); Non-African American GFR(CKD) 69.8 (60.0-200.0); Potassium 4.3 mmol/L (3.5-5.5)
[2021-11-13 15:07] LABS: Hypochromasia Slight; MCH 29.7 pg (25.0-35.0); MCV 95.7 fL (80.0-100.0); Mean Platelet Volume 7.5; Platelet Count 384 k/uL (150-450); RBC 2.09 m/uL (4.30-5.90); RDW 14.7 % (11.5-15.5); WBC 12.1 k/uL (3.8-10.6)
[2021-11-13 15:11] LABS: HGB 6.2 gm/dL (13.0-17.5)
[2021-11-13] MEDS: amLODIPine 5 MG TAB PO SCH (15:21)
[2021-11-13] MEDS: lisinopriL 10 MG TAB PO SCH (15:21)
--- NOTE | 2021-11-14 00:27 | P.PN ---
Subjective Progress Note Date: 11/13/21 Patient is a 81-year-old male with a known history of hypertension, recently diagnosed metastatic lung cancer was recently admitted to the hospital due to acute syncopal episode. Patient was also treated for tooth abscess. Patient was seen by oncology during last admission. Patient was sent home with alliative care and home care and is planning for immunotherapy palliative as an outpatient. Patient also has adenocarcinoma of the colon. Was anemic on admission with hemoglobin level 6.7. Patient is still 1 unit of PRBC transfusion. Patient presented back to the hospital due to generalized weakness and fatigue and fell at home. Patient's cannot manage him at home and was admitted to hospital for possible facility transfer with hospice care. 11/10/2021. Currently in the MICU as of overflow. Patient is agitated this morning and was given a dose of Haldol. Refused to get IV line and has been yelling at the nursing staff this morning. Advised patient is afebrile. No complaints of chest pain or shortness of breath. Pain is fairly controlled. Laboratory data showed WBC 11.4 hemoglobin 7.2 and platelets 366 sodium went up to 129 potassium 4.7 chloride 101 bicarb is 24 BUN 23 and creatinine 0.92. Oncology was consulted. 11/11/2021 Patient is currently resting in the bed comfortably. Awake alert and oriented. Mental status is much improved today. Off restraints. Patient is able to tolerate oral diet. No nausea vomiting. Abdominal pain is controlled with medications. No fever no chills. No cough or sputum production. Laboratory data showed no receipt 0.8 hemoglobin 7.1 platelets 351 Sodium 1:30 potassium 3.9 chloride 919 and creatinine 0.8. Calcium 7.9, iron profile showed iron level XVIII TIBC 133 and percent saturation is 13.5 and transferrin 95.1. CEA 0.8 vitamin B12 5477 and folate 3.6 next line oncology is on board. Planning for immunotherapy palliative. Patient is unable to take care of himself at home. Recommends ECF transfer. 11/12/2021. Patient is currently sitting in the chair comfortably. Awake alert and able to communicate but still confused. No complaints of chest pain or shortness breath. Patient has been afebrile. Hemoglobin is at 7.1. No nausea vomiting or diarrhea. Tolerating oral diet. Oncology is on board. Possible extended care facility transfer. 11/13/2021. Patient is currently resting in the bed. Awake alert and oriented. Able to tolerate oral diet. No nausea vomiting abdominal pain or diarrhea. Hemoglobin 5.5 today. Will be transfused with 1 unit of PRBC. No complaints of chest pain or shortness of breath. No cough or sputum reduction. Laboratory showed sodium 134 potassium 4.3 chloride 101 bicarb is 2 4.5 BUN 24.5 and creatinine 1.0. Calcium 7.9. Hemodynamically stable. Current medications reviewed. Objective - Vital Signs Vital signs: Vital Signs Temp 98.1 F 11/13/21 17:50 Pulse 88 11/13/21 16:00 Resp 16 11/13/21 16:00 BP 112/64 11/13/21 17:50 Pulse Ox 98 11/13/21 16:00 Intake & Output 11/13/21 11/13/21 11/14/21 06:59 18:59 06:59 Intake Total 270 Balance 270 Intake: Blood Product 270 Rc Pheresis 2 As3 Unit 270 [id number] Other: Voiding Method Urinal Toilet # Voids 8 5 # Bowel Movements 5 1 - Exam PHYSICAL EXAMINATION: Patient is lying in the bed comfortably, no acute distress, awake alert and oriented. HEENT: Normocephalic. Neck is supple. Pupils reactive. Nostrils clear. Oral cavity is moist. Neck reveals no JVD, carotid bruits, or thyromegaly. CHEST EXAMINATION: Trachea is central. Symmetrical expansion. Bibasilar diminished sounds. No wheezing or rhonchi.. CARDIAC: Normal S1, S2 with no gallops. No murmurs ABDOMEN: Soft. Bowel sounds normal. No organomegaly. No abdominal bruits. Extremities: reveal no edema. No clubbing or cyanosis Neurologically awake, alert, oriented. . No gross focal deficits noted Skin: No rash or skin lesions. Psychiatric: Cooperative. Musculoskeletal: No joint swelling or deformity. Normal range of motion. - Labs CBC & Chem 7: 11/13/21 14:55 11/13/21 08:39 Labs: Abnormal Lab Results - Last 24 Hours (Table) 11/13/21 11/13/21 11/13/21 Range/Units 08:39 08:39 14:55 WBC 10.24 H 12.1 H (4.50-10.00) X 10*3/uL RBC 1.86 L 2.09 L (4.40-5.60) X 10*6/uL Hgb 5.5 L* 6.2 L* (13.0-17.0) g/dL Hct 17.7 L* 20.0 L (39.6-50.0) % MCHC 31.1 L (32.0-37.0) g/dL RDW 14.7 H (11.5-14.5) % Sodium 134 L (135-145) mmol/L Anion Gap 7.50 L (10.00-18.00) mmol/L BUN/Creatinine Ratio 24.50 H (12.00-20.00) Ratio Calcium 7.9 L (8.7-10.3) mg/dL Crossmatch 11/13/21 Range/Units 14:55 WBC (4.50-10.00) X 10*3/uL RBC (4.40-5.60) X 10*6/uL Hgb (13.0-17.0) g/dL Hct (39.6-50.0) % MCHC (32.0-37.0) g/dL RDW (11.5-14.5) % Sodium (135-145) mmol/L Anion Gap (10.00-18.00) mmol/L BUN/Creatinine Ratio (12.00-20.00) Ratio Calcium (8.7-10.3) mg/dL Crossmatch See Detail Microbiology - Last 24 Hours (Table) 11/11/21 10:35 Blood Culture - Preliminary Blood No Growth after 48 hours 11/11/21 10:24 Blood Culture - Preliminary Blood No Growth after 48 hours Assessment and Plan Assessment: Generalized weakness and falls at home. Due to dehydration and anemia Hypovolemic hyponatremia Anemia of chronic disease Elevated troponin/leak possible demand ischemia Acute delirium. Improved now. Hypoalbuminemia due to poor oral intake. Mild to moderate protein calorie malnutrition Metastatic lung cancer Colon mass Hypertension Hyperlipidemia Asthma/COPD not in exacerbation DVT prophylaxis with heparin subcu GI prophylaxis Plan: Patient will be started on gentle IV hydration and monitor respiratory status closely. Monitor H&H. transfuse 1U PRBC Patient is more awake and alert. Able to tolerate oral diet. Less agitated today. Office changes... Oncology is on board and is planning for palliative chemotherapy.. Social work consult for possible facility transfer with hospice care. Patient is unable to take care of himself at home. Time with Patient: Greater than 30
[2021-11-14] MEDS: SODIUM CHLORIDE 0.9% 1,000 ML IV SCH ×2 (05:32→14:52)
[2021-11-14] MEDS: AMPICILLIN-SULBACTAM 3 GM in SODIUM CHLORIDE 0.9% 100 ML IVPB SCH ×4 (05:33→23:14)
[2021-11-14] MEDS: SYMBICORT 160-4.5 MCG INHALER INHALATION SCH ×2 (07:52→20:02)
[2021-11-14] MEDS: PRIMIDONE 50 MG TAB PO SCH ×3 (08:51→20:10)
[2021-11-14] MEDS: ALPRAZolam 0.25 MG TAB PO SCH ×3 (08:51→20:10)
[2021-11-14] MEDS: ASPIRIN 325 MG TAB PO SCH (08:51)
[2021-11-14] MEDS: FOLIC ACID 1 MG TAB PO SCH (08:51)
[2021-11-14] MEDS: CHLORHEXIDINE GLUCONATE 15 ML CUP MUCOUS MEM SCH ×2 (08:51→20:10)
[2021-11-14] MEDS: carvediloL 12.5 MG TAB PO SCH ×2 (08:51→20:10)
[2021-11-14] MEDS: FAMOTIDINE 20 MG TAB PO SCH (11:00)
[2021-11-14 11:48] LABS: HGB 6.3 g/dL (13.0-17.0); MCH 29.4 pg (27.0-32.0); MCHC 31.5 g/dL (32.0-37.0); MCV 93.5 fL (80.0-97.0); Mean Platelet Volume 9.8 fL (9.5-12.2); NRBC Per 100 WBC 0 /100 WBCS (0.0-0.0); Platelet Count 320 X 10*3/uL (140-440); RBC 2.14 X 10*6/uL (4.40-5.60); RDW 16.6 % (11.5-14.5)
[2021-11-14] MEDS: amLODIPine 5 MG TAB PO SCH (14:09)
[2021-11-14] MEDS: lisinopriL 10 MG TAB PO SCH (14:09)
[2021-11-14 16:21] LABS: African American GFR (CKD) 82.2 (60.0-200.0); Albumin 2.2 g/dL (3.8-4.9); Albumin/Globulin Ratio 1.01 (1.60-3.17); Anion Gap 8.4 mmol/L (10.00-18.00); BUN/Creat Ratio 23.71 Ratio (12.00-20.00); Blood Urea Nitrogen 23.4 mg/dL (9.0-27.0); Calcium 8.2 mg/dL (8.7-10.3); Carbon Dioxide 26.1 mmol/L (20.0-27.5); Globulin 2.2 g/dL (1.6-3.3); Non-African American GFR(CKD) 70.9 (60.0-200.0); Potassium 4.9 mmol/L (3.5-5.5); Total Bilirubin 0.2 mg/dL (0.30-1.20); Total Protein 4.4 g/dL (6.2-8.2)
[2021-11-14] MEDS: PANTOPRAZOLE 40 MG TABLET PO SCH (17:23)
--- NOTE | 2021-11-14 18:21 | P.PN ---
Subjective Progress Note Date: 11/13/21 Principal diagnosis: Mental Status Changes and weakness Hemoglobin has dropped. Objective - Vital Signs Vital signs: Vital Signs Temp 97.8 F 11/13/21 14:00 Pulse 57 L 11/13/21 14:00 Resp 18 11/13/21 14:00 BP 85/38 11/13/21 14:00 Pulse Ox 90 L 11/13/21 14:00 Intake & Output 11/12/21 11/13/21 11/13/21 18:59 06:59 18:59 Intake Total 990 Balance 990 Weight 70 kg Intake: Oral 990 Other: Voiding Method Urinal Urinal Toilet # Voids 1 8 # Bowel Movements 1 5 - Exam - Constitutional General appearance: average body habitus COnfus - EENT Eyes: anicteric sclerae, EOMI ENT: hard of hearing - Neck Neck: no lymphadenopathy - Respiratory Respiratory: bilateral: diminished - Cardiovascular Rhythm: regular Heart sounds: normal: S1, S2 Abnormal Heart Sounds: no systolic murmur, no diastolic murmur, no rub, no S3 Gallop, no S4 Gallop, no click, no other foot Peripheral Edema: bilateral: Trace - Gastrointestinal General gastrointestinal: no absent bowel sounds, no decreased bowel sounds, no distended, no hepatomegaly, no hyperactive bowel sounds, normal bowel sounds, no organomegaly, no rigid, no scaphoid, soft, no splenomegaly, no tenderness, no umbilical hernia, no ventral hernia - Neurologic Neurologic: CNII-XII intact (Grossly) - Musculoskeletal Musculoskeletal: generalized weakness COnfused - Labs CBC & Chem 7: 11/14/21 06:31 11/14/21 06:31 Labs: Abnormal Lab Results - Last 24 Hours (Table) 11/13/21 11/13/21 Range/Units 08:39 08:39 WBC 10.24 H (4.50-10.00) X 10*3/uL RBC 1.86 L (4.40-5.60) X 10*6/uL Hgb 5.5 L* (13.0-17.0) g/dL Hct 17.7 L* (39.6-50.0) % MCHC 31.1 L (32.0-37.0) g/dL RDW 14.7 H (11.5-14.5) % Sodium 134 L (135-145) mmol/L Anion Gap 7.50 L (10.00-18.00) mmol/L BUN/Creatinine Ratio 24.50 H (12.00-20.00) Ratio Calcium 7.9 L (8.7-10.3) mg/dL Microbiology - Last 24 Hours (Table) 11/11/21 10:35 Blood Culture - Preliminary Blood No Growth after 48 hours 11/11/21 10:24 Blood Culture - Preliminary Blood No Growth after 48 hours Assessment and Plan (1) Colonic mass Narrative/Plan: Possibly blood loss from malignancy. Unable to obtain accurate iron studies as patient is post transfusion Current Visit: No Status: Acute Priority: High Code(s): K63.89 - OTHER SPECIFIED DISEASES OF INTESTINE SNOMED Code(s): 576242038 (2) Dental abscess Narrative/Plan: Treated with antibiotics during last visit - Draw blood cultures for full work -up Current Visit: No Status: Acute Priority: High Code(s): K04.7 - PERIAPICAL ABSCESS WITHOUT SINUS SNOMED Code(s): 444821532 (3) Generalized weakness Narrative/Plan: Multifactorial likelt related to symptomatic anemia and infection Current Visit: No Status: Acute Priority: High Code(s): R53.1 - WEAKNESS SNOMED Code(s): 67952769 (4) Leukocytosis Narrative/Plan: Further infection work-up warranted Current Visit: No Status: Acute Code(s): D72.829 - ELEVATED WHITE BLOOD CELL COUNT, UNSPECIFIED SNOMED Code(s): 689226446 (5) Lung cancer Narrative/Plan: Plan for outpatient treatment with PDL1 immune therapy palliaitive intent once improves Current Visit: No Status: Acute Priority: High Code(s): C34.90 - MALIGNANT NEOPLASM OF UNSP PART OF UNSP BRONCHUS OR LUNG SNOMED Code(s): 420774942 (6) Mental status alteration Narrative/Plan: Recent MRI Brain no evidence of metastatic cancer, recent tooth infection and elevated troponin concern for progressive infection although patient refusing further blood draws ands care. No family at bedside. Current Visit: Yes Status: Acute Code(s): R41.82 - ALTERED MENTAL STATUS, UNSPECIFIED SNOMED Code(s): 319432358 (7) Anemia Current Visit: Yes Status: Acute Priority: High Code(s): D64.9 - ANEMIA, UNSPECIFIED SNOMED Code(s): 046228608 Plan: It is felt patient is not able to fully understand diagnosis and/or that treatment of cancers are palliaitve intent, he has many social and transportation issue, there is question of safety in home given his intermittent confusion. Hospice would be approriate if he and/or his family chooses to return to this plan as it is felt the risk of patient being discharged home, potentially unable to safely care for himself in order to receive palliative immune therapy would be a larger risk then residing in ECF with 24 hour care with/without hospice care to ensure quality of life and safety. Message left for daughter Tammy, have not received call back, I spoke to daughter Jennifer and she is frustrated he has fallen at home and is very weak and confused, yet not able to have rehabilitation. After being ineligible for ECF after last stay he fell at home requiring ICU and hospital stay for symptomatic anemia, retraints for confusion. If treatment is an option he will need ECF rehab first to improve performance - [facility] Patient has required blood transfusion without must improvement the past three days, further work-up ordered. No evidence of occcult bleeding however could have GI with colonic mass. Awaiting families decision on code status and hospice care. Called Jennifer daughter today and left message
[2021-11-14] MEDS ORDERED: SODIUM CHLORIDE 0.9% 500 ML 500 ML IV ONE (21:10)
[2021-11-14 21:34] LABS: Glucose,Whole Blood 96 mg/dL (75-99)
[2021-11-14 21:44] LABS: Basophils # (A) 0.1 k/uL (0-0.2); Basophils % (A) 0 %; Eosinophils # (A) 0.3 k/uL (0-0.7); Eosinophils % (A) 2 %; Hypochromasia Moderate; Lymphocytes # (A) 1.4 k/uL (1.0-4.8); Lymphocytes % (A) 11 %; MCH 29.2 pg (25.0-35.0); MCHC 30.9 g/dL (31.0-37.0); MCV 94.7 fL (80.0-100.0); Mean Platelet Volume 7.8; Monocytes # (A) 0.9 k/uL (0-1.0); Monocytes % (A) 7 %; Neutrophils # (A) 9.8 k/uL (1.3-7.7); Neutrophils % (A) 77 %; Platelet Count 358 k/uL (150-450); Poikilocytosis Moderate; RBC 2.06 m/uL (4.30-5.90); RDW 15.8 % (11.5-15.5); WBC 12.7 k/uL (3.8-10.6)
[2021-11-14 21:50] LABS: African American GFR (CKD) 88 (>60 ml/min/1.73 sqM); Anion Gap 3 mmol/L; Blood Urea Nitrogen 27 mg/dL (9-20); Calcium 7.2 mg/dL (8.4-10.2); Carbon Dioxide 24 mmol/L (22-30); Chloride 103 mmol/L (98-107); Glucose 97 mg/dL (74-99); Non-African American GFR(CKD) 76 (>60 ml/min/1.73 sqM); Potassium 4.7 mmol/L (3.5-5.1); Sodium 130 mmol/L (137-145)
[2021-11-14 21:59] LABS: Partial Thromboplastin Time 24.7 sec (22.0-30.0); Prothrombin Time 11.2 sec (9.0-12.0)
[2021-11-14 22:03] LABS: HCT 19.5 % (39.0-53.0)
[2021-11-14 23:13] LABS: Reticulocyte % 3.18 % (0.10-1.80)
[2021-11-14] MEDS ORDERED: ALPRAZolam 0.25 MG TAB PO STA (23:45)
--- NOTE | 2021-11-15 00:19 | P.PN ---
Subjective Progress Note Date: 11/14/21 Patient is a 81-year-old male with a known history of hypertension, recently diagnosed metastatic lung cancer was recently admitted to the hospital due to acute syncopal episode. Patient was also treated for tooth abscess. Patient was seen by oncology during last admission. Patient was sent home with alliative care and home care and is planning for immunotherapy palliative as an outpatient. Patient also has adenocarcinoma of the colon. Was anemic on admission with hemoglobin level 6.7. Patient is still 1 unit of PRBC transfusion. Patient presented back to the hospital due to generalized weakness and fatigue and fell at home. Patient's cannot manage him at home and was admitted to hospital for possible facility transfer with hospice care. 11/10/2021. Currently in the MICU as of overflow. Patient is agitated this morning and was given a dose of Haldol. Refused to get IV line and has been yelling at the nursing staff this morning. Advised patient is afebrile. No complaints of chest pain or shortness of breath. Pain is fairly controlled. Laboratory data showed WBC 11.4 hemoglobin 7.2 and platelets 366 sodium went up to 129 potassium 4.7 chloride 101 bicarb is 24 BUN 23 and creatinine 0.92. Oncology was consulted. 11/11/2021 Patient is currently resting in the bed comfortably. Awake alert and oriented. Mental status is much improved today. Off restraints. Patient is able to tolerate oral diet. No nausea vomiting. Abdominal pain is controlled with medications. No fever no chills. No cough or sputum production. Laboratory data showed no receipt 0.8 hemoglobin 7.1 platelets 351 Sodium 1:30 potassium 3.9 chloride 919 and creatinine 0.8. Calcium 7.9, iron profile showed iron level XVIII TIBC 133 and percent saturation is 13.5 and transferrin 95.1. CEA 0.8 vitamin B12 5477 and folate 3.6 next line oncology is on board. Planning for immunotherapy palliative. Patient is unable to take care of himself at home. Recommends ECF transfer. 11/12/2021. Patient is currently sitting in the chair comfortably. Awake alert and able to communicate but still confused. No complaints of chest pain or shortness breath. Patient has been afebrile. Hemoglobin is at 7.1. No nausea vomiting or diarrhea. Tolerating oral diet. Oncology is on board. Possible extended care facility transfer. 11/13/2021. Patient is currently resting in the bed. Awake alert and oriented. Able to tolerate oral diet. No nausea vomiting abdominal pain or diarrhea. Hemoglobin 5.5 today. Will be transfused with 1 unit of PRBC. No complaints of chest pain or shortness of breath. No cough or sputum reduction. Laboratory showed sodium 134 potassium 4.3 chloride 101 bicarb is 2 4.5 BUN 24.5 and creatinine 1.0. Calcium 7.9. Hemodynamically stable. 11/14/2021. Patient is currently is sitting on the side of the bed. Awake alert but not able good historian. Denies any complaints of abdominal pain. No complaints of nausea or vomiting or diarrhea. Hemoglobin did drop to 6.3 this morning. Patient did not receive 1 unit of PRBC and 1 unit of PRBC was ordered today again. Patient has been afebrile. No cough or sputum production. Laboratory showed WC 12.7 hemoglobin 6.0 and platelets 358 Sodium 130 potassium 4.7 chloride 103 BUN 27 creatinine 0.19 calcium 7.2. Current medications reviewed. Objective - Vital Signs Vital signs: Vital Signs Temp 98.3 F 11/14/21 22:35 Pulse 84 11/14/21 22:35 Resp 15 11/14/21 22:35 BP 95/63 11/14/21 22:35 Pulse Ox 100 11/14/21 22:35 Intake & Output 11/14/21 11/14/21 11/15/21 06:59 18:59 06:59 Intake Total 282 100 Output Total 0 Balance 282 100 Intake: IV 100 Sodium Chloride 0.9% 1, 100 000 ml @ 100 mls/hr IV . Q10H [facility] Rx#:[id number] Blood Product 282 0 Rc Pheresis 2 As3 Unit 0 [id number] Rc Pheresis As-3 Unit 282 [id number] Output: Urine 0 Other: Voiding Method Toilet # Voids 5 3 # Bowel Movements 1 - Exam PHYSICAL EXAMINATION: Patient is lying in the bed comfortably, no acute distress, awake alert and oriented. HEENT: Normocephalic. Neck is supple. Pupils reactive. Nostrils clear. Oral cavity is moist. Neck reveals no JVD, carotid bruits, or thyromegaly. CHEST EXAMINATION: Trachea is central. Symmetrical expansion. Bibasilar diminished sounds. No wheezing or rhonchi.. CARDIAC: Normal S1, S2 with no gallops. No murmurs ABDOMEN: Soft. Bowel sounds normal. No organomegaly. No abdominal bruits. Extremities: reveal no edema. No clubbing or cyanosis Neurologically awake, alert, oriented. . No gross focal deficits noted Skin: No rash or skin lesions. Psychiatric: Cooperative. Musculoskeletal: No joint swelling or deformity. Normal range of motion. - Labs CBC & Chem 7: 11/14/21 21:21 11/14/21 21:21 Labs: Abnormal Lab Results - Last 24 Hours (Table) 11/13/21 11/14/21 11/14/21 Range/Units 14:55 06:31 06:31 WBC 12.60 H (4.50-10.00) X 10*3/uL RBC 2.14 L (4.40-5.60) X 10*6/uL Hgb 6.3 L* (13.0-17.0) g/dL Hct 20.0 L (39.6-50.0) % MCHC 31.5 L (32.0-37.0) g/dL RDW 16.6 H (11.5-14.5) % Neutrophils # (1.3-7.7) k/uL Retic Count (0.10-1.80) % Sodium (137-145) mmol/L Anion Gap 8.40 L (10.00-18.00) mmol/L BUN (9-20) mg/dL BUN/Creatinine Ratio 23.71 H (12.00-20.00) Ratio Calcium 8.2 L (8.7-10.3) mg/dL Total Bilirubin 0.20 L (0.30-1.20) mg/dL AST 40 H (14-35) U/L ALT 50 H (10-49) U/L Lactate Dehydrogenase 293 H (120-246) U/L Total Protein 4.4 L (6.2-8.2) g/dL Albumin 2.2 L (3.8-4.9) g/dL Albumin/Globulin Ratio 1.01 L (1.60-3.17) g/dL Crossmatch See Detail 11/14/21 11/14/21 11/14/21 Range/Units 06:31 21:21 21:21 WBC 12.7 H (4.50-10.00) X 10*3/uL RBC 2.06 L (4.40-5.60) X 10*6/uL Hgb 6.0 L* (13.0-17.0) g/dL Hct 19.5 L* (39.6-50.0) % MCHC 30.9 L (32.0-37.0) g/dL RDW 15.8 H (11.5-14.5) % Neutrophils # 9.8 H (1.3-7.7) k/uL Retic Count 3.18 H (0.10-1.80) % Sodium 130 L (137-145) mmol/L Anion Gap (10.00-18.00) mmol/L BUN 27 H (9-20) mg/dL BUN/Creatinine Ratio (12.00-20.00) Ratio Calcium 7.2 L (8.7-10.3) mg/dL Total Bilirubin (0.30-1.20) mg/dL AST (14-35) U/L ALT (10-49) U/L Lactate Dehydrogenase (120-246) U/L Total Protein (6.2-8.2) g/dL Albumin (3.8-4.9) g/dL Albumin/Globulin Ratio (1.60-3.17) g/dL Crossmatch Microbiology - Last 24 Hours (Table) 11/11/21 10:35 Blood Culture - Preliminary Blood No Growth after 72 hours 11/11/21 10:24 Blood Culture - Preliminary Blood No Growth after 72 hours Assessment and Plan Assessment: Acute on chronic blood loss anemia possible GI bleed. Generalized weakness and falls at home. Due to dehydration and anemia Hypovolemic hyponatremia Anemia of chronic disease Elevated troponin/leak possible demand ischemia Acute delirium. Improved now. Hypoalbuminemia due to poor oral intake. Mild to moderate protein calorie malnutrition Metastatic lung cancer Colon mass Hypertension Hyperlipidemia Asthma/COPD not in exacerbation DVT prophylaxis with heparin subcu GI prophylaxis Plan: Patient will be started on gentle IV hydration and monitor respiratory status closely. Monitor H&H. transfuse 1U PRBC Patient is more awake and alert. Able to tolerate oral diet. Less agitated today. Office changes... Oncology is on board and is planning for palliative chemotherapy.. Social work consult for possible facility transfer with hospice care. Patient is unable to take care of himself at home. Time with Patient: Greater than 30
[2021-11-15] MEDS: MELATONIN 5 MG TABLET PO PRN (01:54)
[2021-11-15] MEDS: SODIUM CHLORIDE 0.9% 1,000 ML IV SCH ×3 (02:13→20:58)
[2021-11-15] MEDS ORDERED: MORPHINE SULFATE 2 MG/ML SYRINGE ONE ×2 (03:32→03:45)
[2021-11-15] MEDS: AMPICILLIN-SULBACTAM 3 GM in SODIUM CHLORIDE 0.9% 100 ML IVPB SCH ×3 (05:59→18:31)
[2021-11-15 07:01] LABS: Basophils % (A) 0 %; Eosinophils # (A) 0.2 k/uL (0-0.7); Eosinophils % (A) 2 %; Lymphocytes # (A) 1.4 k/uL (1.0-4.8); Lymphocytes % (A) 11 %; MCH 29.4 pg (25.0-35.0); MCHC 32.1 g/dL (31.0-37.0); MCV 91.4 fL (80.0-100.0); Mean Platelet Volume 7.3; Monocytes # (A) 0.9 k/uL (0-1.0); Monocytes % (A) 7 %; Neutrophils # (A) 10.2 k/uL (1.3-7.7); Neutrophils % (A) 79 %; Platelet Count 328 k/uL (150-450); Poikilocytosis Moderate; RBC 2.17 m/uL (4.30-5.90); RDW 15.6 % (11.5-15.5); WBC 12.9 k/uL (3.8-10.6)
[2021-11-15 07:02] LABS: HCT 19.8 % (39.0-53.0); HGB 6.4 gm/dL (13.0-17.5)
[2021-11-15] MEDS: PANTOPRAZOLE 40 MG TABLET PO SCH (07:13)
[2021-11-15] MEDS: PRIMIDONE 50 MG TAB PO SCH ×3 (08:14→21:01)
[2021-11-15] MEDS: FOLIC ACID 1 MG TAB PO SCH (08:14)
[2021-11-15] MEDS: carvediloL 12.5 MG TAB PO SCH ×2 (08:14→20:57)
[2021-11-15] MEDS: CHLORHEXIDINE GLUCONATE 15 ML CUP MUCOUS MEM SCH ×2 (08:14→20:57)
[2021-11-15] MEDS: ALPRAZolam 0.25 MG TAB PO SCH ×3 (08:14→21:00)
[2021-11-15] MEDS: SYMBICORT 160-4.5 MCG INHALER INHALATION SCH ×2 (08:42→20:52)
[2021-11-15 09:02] LABS: African American GFR (CKD) 80.9 (60.0-200.0); Albumin 1.9 g/dL (3.8-4.9); Anion Gap 8.9 mmol/L (10.00-18.00); BUN/Creat Ratio 23.9 Ratio (12.00-20.00); Blood Urea Nitrogen 23.9 mg/dL (9.0-27.0); Calcium 7.5 mg/dL (8.7-10.3); Carbon Dioxide 22.1 mmol/L (20.0-27.5); Globulin 1.9 g/dL (1.6-3.3); Non-African American GFR(CKD) 69.8 (60.0-200.0); Potassium 4.2 mmol/L (3.5-5.5); Total Bilirubin 0.8 mg/dL (0.30-1.20); Total Protein 3.8 g/dL (6.2-8.2)
--- NOTE | 2021-11-15 10:01 | P.CNPUL ---
History of Present Illness Consult date: 11/15/21 Reason for consult: lung mass History of present illness: 80-year-old male patient got transferred to the intensive care unit for possible GI bleed and anemia. The patient is known to us as the patient has metastatic adenocarcinoma of the lung. The patient is also known to have COPD, hypertension and hyperlipidemia. He carries [id number] smoking history and he quit smoking back in 1982. The patient had a mass in the right upper lobe with a masslike consolidation and the patient also had right hilar lymphadenopathy and soft tissue mass within the right carotid KG involving the second and the third and the patient had a soft tissue nodule/mass in the posterior right scapula. The CT of the chest showed a 34 x 26 x 40 mm mass in the anterior pectoralis area on the right and the patient had a 12 mm right scapular mass and the right upper lobe mass. Biopsy of the scapular mass with systemic adenocarcinoma of lung primary. CAT scan of the abdomen and pelvis showed 2 masses in the cecum and colonoscopy was done on 09/30/2021 showing adenocarcinoma of a lung primary. The masses were 30 mm and 23 mm in size and the cecum. The patient had a PPD on 1 positive in the order of 80-90% and based on that the patient was started on Keytruda /immunotherapy. During this current admission, he was found to have a dental abscess. He was started on antibiotics accordingly. At the same time the patient has becoming was becoming more debilitated and the patient's was unable to take care of him at home and there was some ongoing social issues. During this current admission, social work case manager and case repairer have been involved in his care. At the same time, the patient difficulties with anemia. His hemoglobin was low and it went as low as 5.9 and he received packed RBC transfusion and during this current admission the patient has associated total of 5 units of packed RBCs. The most recent hemoglobin level is at 6.4 and the platelet count is at 328 and the patient had a coagulation profile that was essentially within normal limits. Based on ongoing issues with anemia and GI bleed, the patient got transferred to the intensive care unit. Surgical consultation has been obtained and GI consultation has also been obtained. The colonoscopy on 10/04/21 showed a lobulated mass at the base of the cecum with some old blood present there. Biopsies of the cecal mass took place. The patient had 3 polyps involving the a scending colon and hepatic flexure. These were not removed. The remainder of the transverse descending sigmoid and rectum was free of any neoplastic inflammatory or polypoid lesions. Mild scattered diverticulosis was seen. She briefly became hypotensive and currently is hemodynamically stable on no pressors. Getting making a total of 5 units during this current admission. Review of Systems CONSTITUTIONAL: Dizziness with frequent falls. Denies any recent significant weight loss or weight gain. EYES: Denies change in vision. EARS, NOSE, MOUTH, THROAT: Denies headaches, denies sore throat. CARDIOVASCULAR: Denies chest pain, palpitations or syncopal episodes. RESPIRATORY: Denies shortness of breath, cough, congestion or hemoptysis. GASTROINTESTINAL: Denies change in appetite, denies abdominal pain GENITOURINARY: Denies hematuria, denies infections. MUSKULOSKELETAL: Denies pain, denies swelling. INTEGUMENTARY: Denies rash, denies eczema. NEUROLOGICAL: Denies recent memory loss, no recent seizure activity. PSYCHIATRIC: Denies anxiety, denies depression. HEMATOLOGIC/LYMPHATIC: Denies anemia, denies enlarged lymph nodes. Past Medical History Past Medical History: Cancer, Hypertension, Syncope Additional Past Medical History / Comment(s): Lung cancer, skin cancer and colon cancer, History of Any Multi-Drug Resistant Organisms: None Reported Past Surgical History: No Surgical Hx Reported Past Anesthesia/Blood Transfusion Reactions: No Reported Reaction Past Psychological History: No Psychological Hx Reported Smoking Status: Former smoker Past Alcohol Use History: None Reported Past Drug Use History: None Reported - Past Family History Father Family Medical History: Unable to Obtain Mother Family Medical History: Unable to Obtain Medications and Allergies Home Medications Medication Instructions Recorded Confirmed Type Carvedilol [Coreg] 12.5 mg PO DAILY@0800 07/15/20 11/09/21 History Budesonide/Formoterol Fumarate 2 puff INHALATION RT-BID 09/23/21 11/09/21 Hi story [Symbicort 160-4.5 Mcg Inhaler] Famotidine 20 mg PO DAILY@1200 09/23/21 11/09/21 History Primidone [Mysoline] 50 mg PO TID@0800,1400,2200 09/23/21 11/09/21 History amLODIPine BESYLATE/BENAZEPRIL 1 cap PO DAILY@1600 09/23/21 11/09/21 History [Lotrel 5-10 MG] Carvedilol [Coreg] 25 mg PO HS 10/28/21 11/09/21 History ALPRAZolam [Xanax] 0.25 mg PO TID #30 tab 11/08/21 11/09/21 Rx Allergies Allergy/AdvReac Type Severity Reaction Status Date / Time No Known Allergies Allergy Verified 11/09/21 07:25 Physical Exam Vitals: Vital Signs Temp Pulse Pulse Resp BP BP Pulse Ox 11/15/21 07:30 14 116/63 11/15/21 07:00 86 12 115/67 97 11/15/21 06:30 85 22 115/67 99 11/15/21 06:00 85 12 137/70 97 11/15/21 05:30 86 3 L 137/70 100 11/15/21 05:00 86 19 110/46 99 11/15/21 04:30 79 16 93/48 100 11/15/21 04:00 98.2 F 80 100 17 100/50 100 11/15/21 03:30 21 100/50 100 11/15/21 03:00 86 19 114/63 99 11/15/21 02:30 81 17 114/63 100 11/15/21 02:00 87 18 121/64 99 11/15/21 01:30 94 10 L 103/55 97 11/15/21 01:09 98.2 F 83 18 103/55 99 11/15/21 01:00 84 18 106/52 98 11/15/21 00:30 88 16 116/68 99 11/15/21 00:00 98.3 F 100 29 H 124/56 100 11/14/21 23:30 27 H 112/54 100 11/14/21 23:00 98.3 F 86 10 L 95/63 100 11/14/21 22:35 98.3 F 84 15 95/63 100 11/14/21 22:30 87 21 95/54 100 11/14/21 22:29 100 11/14/21 22:05 98.3 F 84 19 95/54 100 11/14/21 22:00 87 12 100/51 100 11/14/21 21:55 98.3 F 88 16 100/51 100 11/14/21 21:16 100 11/14/21 18:12 97.6 F 83 17 107/58 97 05/22/22 14:55 97.4 F L 107/58 11/14/21 14:00 98.1 F 83 18 105/57 98 11/14/21 13:30 98.0 F 102/55 11/14/21 13:20 97.9 F 102/57 Intake and Output 11/14/21 11/15/21 11/15/21 22:59 06:59 14:59 Intake Total 0 1080 410 Output Total 475 Balance 0 605 410 Intake: IV 800 100 Sodium Chloride 0.9% 1, 800 100 000 ml @ 100 mls/hr IV . Q10H [facility] Rx#:[id number] Blood Product 0 280 310 Rc As-1 Unit 0 310 [id number] Rc Pheresis 2 As3 Unit 0 280 [id number] Output: Urine 475 Other: Voiding Method Toilet # Voids 3 1 # Bowel Movements 1 1 Weight 81.2 kg Patient is lying in the bed comfortably, no acute distress, awake alert and oriented. The patient is currently on room air oxygen and the patient is resting comfortably in bed. HEENT: Normocephalic. Neck is supple. Pupils reactive. Nostrils clear. Oral cavity is moist. Neck reveals no JVD, carotid bruits, or thyromegaly. CHEST EXAMINATION: Trachea is central. Symmetrical expansion. Bibasilar diminished sounds. No wheezing or rhonchi.. CARDIAC: Normal S1, S2 with no gallops. No murmurs ABDOMEN: Soft. Bowel sounds normal. No organomegaly. No abdominal bruits. Extremities: reveal no edema. No clubbing or cyanosis Neurologically awake, alert, oriented. . No gross focal deficits noted Skin: No rash or skin lesions. Psychiatric: Cooperative. Musculoskeletal: No joint swelling or deformity. Normal range of motion. Results - Laboratory Findings CBC and BMP: 11/15/21 03:00 11/15/21 03:00 PT/INR, D-dimer PT 11.2 sec (9.0-12.0) 11/14/21 21:21 INR 1.0 (<1.2) 11/14/21 21:21 Abnormal lab findings: Abnormal Labs 11/09/21 11/09/21 11/09/21 02:17 02:17 02:17 WBC 12.3 H RBC 2.23 L Hgb 6.7 L* Hct 20.9 L MCHC RDW Neutrophils # 9.8 H Retic Count Sodium 125 L Chloride 93 L Anion Gap BUN 28 H BUN/Creatinine Ratio Glucose 104 H Calcium 8.2 L Iron TIBC % Saturation Transferrin Ferritin Total Bilirubin AST ALT Lactate Dehydrogenase Troponin I 0.084 H* Total Protein 5.3 L Albumin 2.5 L Albumin/Globulin Ratio HDL Cholesterol Folate Urine Ketones Crossmatch 11/09/21 11/09/21 11/09/21 05:47 08:13 10:59 WBC RBC Hgb Hct MCHC RDW Neutrophils # Retic Count Sodium Chloride Anion Gap BUN BUN/Creatinine Ratio Glucose Calcium Iron TIBC % Saturation Transferrin Ferritin Total Bilirubin AST ALT Lactate Dehydrogenase Troponin I 0.057 H* 0.058 H* Total Protein Albumin Albumin/Globulin Ratio HDL Cholesterol Folate Urine Ketones Crossmatch See Detail 11/09/21 11/10/21 11/10/21 21:12 07:23 07:23 WBC 16.5 H 11.4 H RBC 2.73 L 2.43 L Hgb 8.1 L 7.2 L Hct 25.7 L 22.8 L MCHC RDW Neutrophils # Retic Count Sodium Chloride Anion Gap BUN BUN/Creatinine Ratio Glucose Calcium Iron TIBC % Saturation Transferrin Ferritin Total Bilirubin AST ALT Lactate Dehydrogenase Troponin I Total Protein Albumin Albumin/Globulin Ratio HDL Cholesterol 30.00 L Folate Urine Ketones Crossmatch 11/10/21 11/11/21 11/11/21 10:56 04:56 04:56 WBC RBC 2.34 L Hgb 7.1 L Hct 22.0 L MCHC RDW Neutrophils # Retic Count 2.5 H Sodium 129 L 130 L Chloride Anion Gap BUN 23 H BUN/Creatinine Ratio Glucose Calcium 7.9 L Iron TIBC % Saturation Transferrin Ferritin Total Bilirubin AST ALT Lactate Dehydrogenase Troponin I Total Protein 4.7 L Albumin 2.2 L Albumin/Globulin Ratio HDL Cholesterol Folate Urine Ketones Crossmatch 11/11/21 11/11/21 11/11/21 06:05 10:24 10:24 WBC RBC Hgb Hct MCHC RDW Neutrophils # Retic Count Sodium Chloride Anion Gap BUN BUN/Creatinine Ratio Glucose Calcium Iron 18 L TIBC 133 L % Saturation 13.59 L Transferrin 95.1 L Ferritin 964.0 H Total Bilirubin AST ALT Lactate Dehydrogenase Troponin I Total Protein Albumin Albumin/Globulin Ratio HDL Cholesterol Folate 3.60 L Urine Ketones Trace H Crossmatch 11/12/21 11/12/21 11/13/21 05:57 06:00 08:39 WBC 10.24 H RBC 2.38 L 1.86 L Hgb 7.1 L 5.5 L* Hct 22.5 L 17.7 L* MCHC 31.1 L RDW 14.7 H Neutrophils # Retic Count Sodium 131 L Chloride 97 L Anion Gap BUN BUN/Creatinine Ratio Glucose 103 H Calcium 7.8 L Iron TIBC % Saturation Transferrin Ferritin Total Bilirubin AST ALT Lactate Dehydrogenase Troponin I Total Protein Albumin Albumin/Globulin Ratio HDL Cholesterol Folate Urine Ketones Crossmatch 11/13/21 11/13/21 11/13/21 08:39 14:55 14:55 WBC 12.1 H RBC 2.09 L Hgb 6.2 L* Hct 20.0 L MCHC RDW Neutrophils # Retic Count Sodium 134 L Chloride Anion Gap 7.50 L BUN BUN/Creatinine Ratio 24.50 H Glucose Calcium 7.9 L Iron TIBC % Saturation Transferrin Ferritin Total Bilirubin AST ALT Lactate Dehydrogenase Troponin I Total Protein Albumin Albumin/Globulin Ratio HDL Cholesterol Folate Urine Ketones Crossmatch See Detail 11/14/21 11/14/21 11/14/21 06:31 06:31 06:31 WBC 12.60 H RBC 2.14 L Hgb 6.3 L* Hct 20.0 L MCHC 31.5 L RDW 16.6 H Neutrophils # Retic Count 3.18 H Sodium Chloride Anion Gap 8.40 L BUN BUN/Creatinine Ratio 23.71 H Glucose Calcium 8.2 L Iron TIBC % Saturation Transferrin Ferritin Total Bilirubin 0.20 L AST 40 H ALT 50 H Lactate Dehydrogenase 293 H Troponin I Total Protein 4.4 L Albumin 2.2 L Albumin/Globulin Ratio 1.01 L HDL Cholesterol Folate Urine Ketones Crossmatch 11/14/21 11/14/21 11/15/21 21:21 21:21 03:00 WBC 12.7 H 12.9 H RBC 2.06 L 2.17 L Hgb 6.0 L* 6.4 L* Hct 19.5 L* 19.8 L* MCHC 30.9 L RDW 15.8 H 15.6 H Neutrophils # 9.8 H 10.2 H Retic Count Sodium 130 L Chloride Anion Gap BUN 27 H BUN/Creatinine Ratio Glucose Calcium 7.2 L Iron TIBC % Saturation Transferrin Ferritin Total Bilirubin AST ALT Lactate Dehydrogenase Troponin I Total Protein Albumin Albumin/Globulin Ratio HDL Cholesterol Folate Urine Ketones Crossmatch 11/15/21 03:00 WBC RBC Hgb Hct MCHC RDW Neutrophils # Retic Count Sodium Chloride Anion Gap 8.90 L BUN BUN/Creatinine Ratio 23.90 H Glucose Calcium 7.5 L Iron TIBC % Saturation Transferrin Ferritin Total Bilirubin AST ALT Lactate Dehydrogenase Troponin I Total Protein 3.8 L Albumin 1.9 L Albumin/Globulin Ratio 1.00 L HDL Cholesterol Folate Urine Ketones Crossmatch Assessment and Plan Plan: 1 lower GI bleeding. The patient is having ongoing lower GI bleed and the patient came in to the ICU with a hemoglobin of 6.7 and the patient received an additional 2 units of packed RBC and the total amount of packed RBC given to him during this current admission is a total of 5 units. Normal coagulation profi le. Normal platelet counts. The patient underwent a colonoscopy on 10/04/2021 and he has a metastatic colonic mass in the cecum which is thought to be the source of bleed 2 Severe Anemia 3 metastatic adenocarcinoma of the lung, biopsy confirmed with a fine-needle aspirate of the chest wall mass currently being considered for Keytruda/immunotherapy for metastatic adenocarcinoma of the lung 3 Remote 25 year history of smoking. 4 generalized weakness, severe debility, frequent falls, all related to metastatic lung cancer in addition to comorbidities stated above. 5 History of hypertension. 6 History of anxiety. 7 Hyperlipidemia. 8 Poor historian. 9 Tooth abscess currently on Unasyn. Plan Keep the patient intensive care unit for now pending further decisions on his CODE STATUS as the patient is being considered for hospice. IV fluids at the rate of 100 mL an hour Watch for any GI bleeding GI services in general surgery has been consulted. Monitor hemoglobin IV Protonix Hold Zestril Avoid anticoagulants for now Compression devices his lower extremities Hold immunotherapy for now poor secondary to above-mentioned comorbidities
[2021-11-15 10:22] LABS: Anisocytosis Slight; HCT 27.8 % (39.0-53.0); Hypochromasia Slight; MCH 29.3 pg (25.0-35.0); MCHC 32.4 g/dL (31.0-37.0); MCV 90.6 fL (80.0-100.0); Mean Platelet Volume 7.7; Platelet Count 288 k/uL (150-450); Poikilocytosis Slight; RBC 3.07 m/uL (4.30-5.90); RDW 16.9 % (11.5-15.5); WBC 20.2 k/uL (3.8-10.6)
--- NOTE | 2021-11-15 12:15 | P.PN ---
Progress Note - Text Progress Note Date: 11/15/21 Patient confused. Left message with daughter, Jennifer, at 1030 to set up a meeting. Awaiting call back. Lin Vivas [facility] Palliative Care [facility] [id number] Email: [email or web address]
--- NOTE | 2021-11-15 12:36 | P.PN ---
Subjective Progress Note Date: 11/15/21 Principal diagnosis: Mental Status Changes and weakness Bloody and clotted stool Monday night, re-admitted to ICU. hgb 6.4. I have spoken daily ovver the weekend with with family and today with and daughter Jennifer, We have addressed code status and the appropriate decision of a DNR status and comfort measures as he has a bleeding malignancy at this time and not a candidate for treatment any longer given the new events of this hospital and not being a surgicval candidate. His is emotional and not grasping all points made, Daughter Jennifer states her brother will be here around 4pm and she will be here with mother around 5:30 to make this decision at bedside and asked in the mean time to continue aggressive supportive care. Objective - Vital Signs Vital signs: Vital Signs Temp 98.2 F 11/15/21 04:00 Pulse 86 11/15/21 07:00 Resp 14 11/15/21 07:30 BP 116/63 11/15/21 07:30 Pulse Ox 97 11/15/21 07:00 FiO2 21 11/13/21 07:14 Intake & Output 11/14/21 11/15/21 11/15/21 18:59 06:59 18:59 Intake Total 282 1080 410 Output Total 475 Balance 282 605 410 Weight 81.2 kg Intake: IV 800 100 Sodium Chloride 0.9% 1, 800 100 000 ml @ 100 mls/hr IV . Q10H [facility] Rx#:[id number] Blood Product 282 280 310 Rc As-1 Unit 0 310 [id number] Rc Pheresis 2 As3 Unit 280 [id number] Rc Pheresis As-3 Unit 282 [id number] Output: Urine 475 Other: Voiding Method Toilet Toilet # Voids 3 1 # Bowel Movements 1 1 - Labs CBC & Chem 7: 11/15/21 10:04 11/15/21 03:00 Labs: Abnormal Lab Results - Last 24 Hours (Table) 11/13/21 11/14/21 11/14/21 Range/Units 14:55 06:31 06:31 WBC 12.60 H (4.50-10.00) X 10*3/uL RBC 2.14 L (4.40-5.60) X 10*6/uL Hgb 6.3 L* (13.0-17.0) g/dL Hct 20.0 L (39.6-50.0) % MCHC 31.5 L (32.0-37.0) g/dL RDW 16.6 H (11.5-14.5) % Neutrophils # (1.3-7.7) k/uL Retic Count (0.10-1.80) % Sodium (137-145) mmol/L Anion Gap 8.40 L (10.00-18.00) mmol/L BUN (9-20) mg/dL BUN/Creatinine Ratio 23.71 H (12.00-20.00) Ratio Calcium 8.2 L (8.7-10.3) mg/dL Total Bilirubin 0.20 L (0.30-1.20) mg/dL AST 40 H (14-35) U/L ALT 50 H (10-49) U/L Lactate Dehydrogenase 293 H (120-246) U/L Total Protein 4.4 L (6.2-8.2) g/dL Albumin 2.2 L (3.8-4.9) g/dL Albumin/Globulin Ratio 1.01 L (1.60-3.17) g/dL Crossmatch See Detail 11/14/21 11/14/21 11/14/21 Range/Units 06:31 21:21 21:21 WBC 12.7 H (4.50-10.00) X 10*3/uL RBC 2.06 L (4.40-5.60) X 10*6/uL Hgb 6.0 L* (13.0-17.0) g/dL Hct 19.5 L* (39.6-50.0) % MCHC 30.9 L (32.0-37.0) g/dL RDW 15.8 H (11.5-14.5) % Neutrophils # 9.8 H (1.3-7.7) k/uL Retic Count 3.18 H (0.10-1.80) % Sodium 130 L (137-145) mmol/L Anion Gap (10.00-18.00) mmol/L BUN 27 H (9-20) mg/dL BUN/Creatinine Ratio (12.00-20.00) Ratio Calcium 7.2 L (8.7-10.3) mg/dL Total Bilirubin (0.30-1.20) mg/dL AST (14-35) U/L ALT (10-49) U/L Lactate Dehydrogenase (120-246) U/L Total Protein (6.2-8.2) g/dL Albumin (3.8-4.9) g/dL Albumin/Globulin Ratio (1.60-3.17) g/dL Crossmatch 11/15/21 Range/Units 03:00 WBC 12.9 H (4.50-10.00) X 10*3/uL RBC 2.17 L (4.40-5.60) X 10*6/uL Hgb 6.4 L* (13.0-17.0) g/dL Hct 19.8 L* (39.6-50.0) % MCHC (32.0-37.0) g/dL RDW 15.6 H (11.5-14.5) % Neutrophils # 10.2 H (1.3-7.7) k/uL Retic Count (0.10-1.80) % Sodium (137-145) mmol/L Anion Gap (10.00-18.00) mmol/L BUN (9-20) mg/dL BUN/Creatinine Ratio (12.00-20.00) Ratio Calcium (8.7-10.3) mg/dL Total Bilirubin (0.30-1.20) mg/dL AST (14-35) U/L ALT (10-49) U/L Lactate Dehydrogenase (120-246) U/L Total Protein (6.2-8.2) g/dL Albumin (3.8-4.9) g/dL Albumin/Globulin Ratio (1.60-3.17) g/dL Crossmatch Microbiology - Last 24 Hours (Table) 11/11/21 10:35 Blood Culture - Preliminary Blood No Growth after 72 hours 11/11/21 10:24 Blood Culture - Preliminary Blood No Growth after 72 hours Assessment and Plan (1) Colonic mass Narrative/Plan: Primary bleeding site Not a surgical candidate Current Visit: No Status: Acute Priority: High Code(s): K63.89 - OTHER SPECIFIED DISEASES OF INTESTINE SNOMED Code(s): 959842815 (2) Dental abscess Current Visit: No Status: Acute Priority: High Code(s): K04.7 - PERIAPICAL ABSCESS WITHOUT SINUS SNOMED Code(s): 902644740 (3) Generalized weakness Current Visit: No Status: Acute Priority: High Code(s): R53.1 - WEAKNESS SNOMED Code(s): 52293959 (4) Leukocytosis Current Visit: No Status: Acute Code(s): D72.829 - ELEVATED WHITE BLOOD CELL COUNT, UNSPECIFIED SNOMED Code(s): 858543622 (5) Lung cancer Current Visit: No Status: Acute Priority: High Code(s): C34.90 - MALIGNANT NEOPLASM OF UNSP PART OF UNSP BRONCHUS OR LUNG SNOMED Code(s): 269847259 (6) Mental status alteration Current Visit: Yes Status: Acute Code(s): R41.82 - ALTERED MENTAL STATUS, UNSPECIFIED SNOMED Code(s): 836169863 (7) Anemia Current Visit: Yes Status: Acute Priority: High Code(s): D64.9 - ANEMIA, UNSPECIFIED SNOMED Code(s): 205295738 Plan: Bloody and clotted stool Monday night, re-admitted to ICU. hgb 6.4. I have spoken daily ovver the weekend with with family and today with and daughter Jennifer, We have addressed code status and the appropriate decision of a DNR status and comfort measures as he has a bleeding malignancy at this time and not a candidate for treatment any longer given the new events of this hospital and not being a surgicval candidate. His is emotional and not grasping all points made, Daughter Jennifer states her brother will be here around 4pm and she will be here with mother around 5:30 to make this decision at bedside and asked in the mean time to continue aggressive supportive care.
--- NOTE | 2021-11-15 12:47 | P.GSCN ---
History of Present Illness Consult date: 11/15/21 History of present illness: CHIEF COMPLAINT: Weakness HISTORY OF PRESENT ILLNESS: This is a 81-year-old male who presented to the hospital with complaints of generalized weakness. Patient has a known history of metastatic adenocarcinoma of the lung. 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 He was transferred to the ICU yesterday a for GI bleed and anemia. Patient had a hemoglobin of 5.5. He required 2 units of blood. And hemoglobin has trended upwards to 9.0. Patient has received a total of 5 units of blood during this admission. Hemoglobin on admission was 6.7. There is discussion about making patient palliative care. At this time patient is a full code. He is confused. Per nursing staff patient was having jennifer bright red blood from rectum yesterday and last BM was yesterday evening which was more maroon in color. Patient denies any abdominal pain. Denies any nausea or vomiting. PAST MEDICAL HISTORY: See list. PAST SURGICAL HISTORY: See list. MEDICATIONS: See list. ALLERGIES: See list. SOCIAL HISTORY: No illicit drug use. REVIEW OF SYSTEMS: CONSTITUTIONAL: Denies fever or chills. HEENT: Denies blurred vision, vision changes, or eye pain. Denies hemoptysis CARDIOVASCULAR: Denies chest pain or pressure. RESPIRATORY: No shortness of breath. GASTROINTESTINAL: See HPI for pertinent findings HEMATOLOGIC: Denies bleeding disorders. GENITOURINARY: Denies any blood in urine or increased urinary frequency. SKIN: Denies pruitis. Denies rash. PHYSICAL EXAM: VITAL SIGNS: Reviewed GENERAL: Well-developed in no acute distress. HEENT: No sclera icterus. Extraocular movements grossly intact. Moist buccal mucosa. Head is atraumatic, normocephalic. No nasal drainage. ABDOMEN: Soft. Nondistended. Nontender NEUROLOGIC: Awake. Alert and orientated to his name and place LABORATORY DATA: WBC is 20.2 hemoglobin lowest at 5.5 trended upwards to 9.0 platelets 288 Sodium is 135 potassium is 4.2 creatinine is 1.0 IMAGING: ASSESSMENT: 1. Acute GI bleed 2. Acute blood loss anemia 3. Cecal mass noted on colonoscopy from 09/30/2021 4. History of metastatic adenocarcinoma of the lung PLAN: -Further recommendations forthcoming per surgeon -Continue ICU management -Continue supportive care -Continue monitor hemoglobin -Continue to monitor for any signs or symptoms of bleeding Physician Force Adjustment Supervisor note has been reviewed by physician. Signing provider agrees with the documented findings, assessment, and plan of care. I have personally seen and examined the patient, reviewed the PILE DRIVER OPERATOR /PAs history, exam and MDM and agree with the assessment and plan as written. Based on total visit time, I have performed more than 50% of the visit. As above: Patient with brownish colored stools today. Denies abdominal pain. Apparently family considering immunotherapy however patient has been quite weak. Defer to oncology for definitive oncologic plan however no plans for surgery at this time. We'll reevaluate tomorrow. Past Medical History Past Medical History: Cancer, Hypertension, Syncope Additional Past Medical History / Comment(s): Lung cancer, skin cancer and colon cancer, History of Any Multi-Drug Resistant Organisms: None Reported Past Surgical History: No Surgical Hx Reported Past Anesthesia/Blood Transfusion Reactions: No Reported Reaction Past Psychological History: No Psychological Hx Reported Smoking Status: Former smoker Past Alcohol Use History: None Reported Past Drug Use History: None Reported - Past Family History Father Family Medical History: Unable to Obtain Mother Family Medical History: Unable to Obtain Medications and Allergies Home Medications Medication Instructions Recorded Confirmed Type Carvedilol [Coreg] 12.5 mg PO DAILY@0800 07/15/20 11/09/21 History Budesonide/Formoterol Fumarate 2 puff INHALATION RT-BID 09/23/21 11/09/21 History [Symbicort 160-4.5 Mcg Inhaler] Famotidine 20 mg PO DAILY@1200 09/23/21 11/09/21 History Primidone [Mysoline] 50 mg PO TID@0800,1400,2200 09/23/21 11/09/21 History amLODIPine BESYLATE/BENAZEPRIL 1 cap PO DAILY@1600 09/23/21 11/09/21 History [Lotrel 5-10 MG] Carvedilol [Coreg] 25 mg PO HS 10/28/21 11/09/21 History ALPRAZolam [Xanax] 0.25 mg PO TID #30 tab 11/08/21 11/09/21 Rx Allergies Allergy/AdvReac Type Severity Reaction Status Date / Time No Known Allergies Allergy Verified 11/09/21 07:25 Surgical - Exam Vital Signs Temp Pulse Resp BP Pulse Ox 97.5 F L 77 16 105/50 98 11/09/21 01:13 11/09/21 01:13 11/09/21 01:13 11/09/21 01:13 11/09/21 01:13 Results - Labs 11/15/21 10:04 11/15/21 03:00 Abnormal Lab Results - Last 24 Hours (Table) 11/13/21 11/14/21 11/14/21 Range/Units 14:55 06:31 06:31 WBC 12.60 H (4.50-10.00) X 10*3/uL RBC 2.14 L (4.40-5.60) X 10*6/uL Hgb 6.3 L* (13.0-17.0) g/dL Hct 20.0 L (39.6-50.0) % MCHC 31.5 L (32.0-37.0) g/dL RDW 16.6 H (11.5-14.5) % Neutrophils # (1.3-7.7) k/uL Retic Count (0.10-1.80) % Sodium (137-145) mmol/L Anion Gap 8.40 L (10.00-18.00) mmol/L BUN (9-20) mg/dL BUN/Creatinine Ratio 23.71 H (12.00-20.00) Ratio Calcium 8.2 L (8.7-10.3) mg/dL Total Bilirubin 0.20 L (0.30-1.20) mg/dL AST 40 H (14-35) U/L ALT 50 H (10-49) U/L Lactate Dehydrogenase 293 H (120-246) U/L Total Protein 4.4 L (6.2-8.2) g/dL Albumin 2.2 L (3.8-4.9) g/dL Albumin/Globulin Ratio 1.01 L (1.60-3.17) g/dL Crossmatch See Detail 11/14/21 11/14/21 11/14/21 Range/Units 06:31 21:21 21:21 WBC 12.7 H (4.50-10.00) X 10*3/uL RBC 2.06 L (4.40-5.60) X 10*6/uL Hgb 6.0 L* (13.0-17.0) g/dL Hct 19.5 L* (39.6-50.0) % MCHC 30.9 L (32.0-37.0) g/dL RDW 15.8 H (11.5-14.5) % Neutrophils # 9.8 H (1.3-7.7) k/uL Retic Count 3.18 H (0.10-1.80) % Sodium 130 L (137-145) mmol/L Anion Gap (10.00-18.00) mmol/L BUN 27 H (9-20) mg/dL BUN/Creatinine Ratio (12.00-20.00) Ratio Calcium 7.2 L (8.7-10.3) mg/dL Total Bilirubin (0.30-1.20) mg/dL AST (14-35) U/L ALT (10-49) U/L Lactate Dehydrogenase (120-246) U/L Total Protein (6.2-8.2) g/dL Albumin (3.8-4.9) g/dL Albumin/Globulin Ratio (1.60-3.17) g/dL Crossmatch 11/15/21 11/15/21 11/15/21 Range/Units 03:00 03:00 10:04 WBC 12.9 H 20.2 H (4.50-10.00) X 10*3/uL RBC 2.17 L 3.07 L (4.40-5.60) X 10*6/uL Hgb 6.4 L* 9.0 L D (13.0-17.0) g/dL Hct 19.8 L* 27.8 L (39.6-50.0) % MCHC (32.0-37.0) g/dL RDW 15.6 H 16.9 H (11.5-14.5) % Neutrophils # 10.2 H (1.3-7.7) k/uL Retic Count (0.10-1.80) % Sodium (137-145) mmol/L Anion Gap 8.90 L (10.00-18.00) mmol/L BUN (9-20) mg/dL BUN/Creatinine Ratio 23.90 H (12.00-20.00) Ratio Calcium 7.5 L (8.7-10.3) mg/dL Total Bilirubin (0.30-1.20) mg/dL AST (14-35) U/L ALT (10-49) U/L Lactate Dehydrogenase (120-246) U/L Total Protein 3.8 L (6.2-8.2) g/dL Albumin 1.9 L (3.8-4.9) g/dL Albumin/Globulin Ratio 1.00 L (1.60-3.17) g/dL Crossmatch Microbiology - Last 24 Hours (Table) 11/11/21 10:35 Blood Culture - Preliminary Blood No Growth after 72 hours 11/11/21 10:24 Blood Culture - Preliminary Blood No Growth after 72 hours Diabetes panel 11/14/21 11/14/21 11/15/21 Range/Units 06:31 21:21 03:00 Sodium 138 130 L 135 (135-145) mmol/L Potassium 4.9 4.7 4.2 (3.5-5.5) mmol/L Chloride 103 103 104 (96-109) mmol/L Carbon Dioxide 26.1 24 22.1 (20.0-27.5) mmol/L BUN 23.4 27 H 23.9 (9.0-27.0) mg/dL Creatinine 1.0 0.93 1.0 (0.6-1.5) mg/dL Glucose 99 97 105 (70-110) mg/dL Calcium 8.2 L 7.2 L 7.5 L (8.7-10.3) mg/dL AST 40 H 30 (14-35) U/L ALT 50 H 39 (10-49) U/L Alkaline Phosphatase 68 55 (41-126) U/L Total Protein 4.4 L 3.8 L (6.2-8.2) g/dL Albumin 2.2 L 1.9 L (3.8-4.9) g/dL Calcium panel 11/14/21 11/14/21 11/15/21 Range/Units 06:31 21:21 03:00 Calcium 8.2 L 7.2 L 7.5 L (8.7-10.3) mg/dL Albumin 2.2 L 1.9 L (3.8-4.9) g/dL Pituitary panel 11/14/21 11/14/2122 Range/Units 06:31 21:21 03:00 Sodium 138 130 L 135 (135-145) mmol/L Potassium 4.9 4.7 4.2 (3.5-5.5) mmol/L Chloride 103 103 104 (96-109) mmol/L Carbon Dioxide 26.1 24 22.1 (20.0-27.5) mmol/L BUN 23.4 27 H 23.9 (9.0-27.0) mg/dL Creatinine 1.0 0.93 1.0 (0.6-1.5) mg/dL Glucose 99 97 105 (70-110) mg/dL Calcium 8.2 L 7.2 L 7.5 L (8.7-10.3) mg/dL Adrenal panel 11/14/21 11/14/21 11/15/21 Range/Units 06:31 21:21 03:00 Sodium 138 130 L 135 (135-145) mmol/L Potassium 4.9 4.7 4.2 (3.5-5.5) mmol/L Chloride 103 103 104 (96-109) mmol/L Carbon Dioxide 26.1 24 22.1 (20.0-27.5) mmol/L BUN 23.4 27 H 23.9 (9.0-27.0) mg/dL Creatinine 1.0 0.93 1.0 (0.6-1.5) mg/dL Glucose 99 97 105 (70-110) mg/dL Calcium 8.2 L 7.2 L 7.5 L (8.7-10.3) mg/dL Total Bilirubin 0.20 L 0.80 (0.30-1.20) mg/dL AST 40 H 30 (14-35) U/L ALT 50 H 39 (10-49) U/L Alkaline Phosphatase 68 55 (41-126) U/L Total Protein 4.4 L 3.8 L (6.2-8.2) g/dL Albumin 2.2 L 1.9 L (3.8-4.9) g/dL
--- NOTE | 2021-11-15 12:57 | P.CONS ---
History of Present Illness - Reason for Consult Consult date: 11/15/21 GI bleed Requesting physician: Kayleen Solorio - Chief Complaint Generalized weakness, falls - History of Present Illness This is a pleasantly confused 81-year-old male who was brought in by EMS several days ago for generalized weakness and frequent fall. He was recently diagnosed with cecal mass recently found on colonoscopy done by Dr. Arellano on 09/30/2021. Patient at that time underwent EGD and Colonoscopy. EGD revealed small hiatal hernia. Colonoscopy also revealed right-sided colon polyps, diverticulosis and a small hiatal hernia. 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 During his last admission he was discharged home however it was discussed by hematology as well as the surgery that patient was hospice appropriate. Apparently patient does not have support at home and lives alone. On admission the patient was noted to have a he moglobin of 6.7 for which she was given 1 unit of PRBC transfusion with a hemoglobin up to 8.1. On 11/13/2021 he again was found to have a hemoglobin of 5.5. He has now status post 5 units PRBC transfusion. The patient is confused and unable to give a good history. Nursing has reported yesterday having maroon rectal bleeding with clots. Gastroenterology was consulted for acute GI bleed. WBC 12.9 hemoglobin 6.4 hematocrit 19.8 platelet count 328,000 INR 1.0, sodium 135 potassium 4.2 BUN 23 creatinine 1.0 total bilirubin 0.8 AST 30 ALT 39 alkaline phosphatase 55 Review of Systems ROS unobtainable: due to mental status Past Medical History Past Medical History: Cancer, Hypertension, Syncope Additional Past Medical History / Comment(s): Lung cancer, skin cancer and colon cancer, History of Any Multi-Drug Resistant Organisms: None Reported Past Surgical History: No Surgical Hx Reported Past Anesthesia/Blood Transfusion Reactions: No Reported Reaction Past Psychological History: No Psychological Hx Reported Smoking Status: Former smoker Past Alcohol Use History: None Reported Past Drug Use History: None Reported - Past Family History Father Family Medical History: Unable to Obtain Mother Family Medical History: Unable to Obtain Medications and Allergies Home Medications Medication Instructions Recorded Confirmed Type Carvedilol [Coreg] 12.5 mg PO DAILY@0800 07/15/20 11/09/21 History Budesonide/Formoterol Fumarate 2 puff INHALATION RT-BID 09/23/21 11/09/21 History [Symbicort 160-4.5 Mcg Inhaler] Famotidine 20 mg PO DAILY@1200 09/23/21 11/09/21 History Primidone [Mysoline] 50 mg PO TID@0800,1400,2200 09/23/21 11/09/21 History amLODIPine BESYLATE/BENAZEPRIL 1 cap PO DAILY@1600 09/23/21 11/09/21 History [Lotrel 5-10 MG] Carvedilol [Coreg] 25 mg PO HS 10/28/21 11/09/21 History ALPRAZolam [Xanax] 0.25 mg PO TID #30 tab 11/08/21 11/09/21 Rx Allergies Allergy/AdvReac Type Severity Reaction Status Date / Time No Known Allergies Allergy Verified 11/09/21 07:25 Physical Exam Vitals: Vital Signs Temp Pulse Pulse Resp BP BP Pulse Ox 11/15/21 07:30 14 116/63 11/15/21 07:00 86 12 115/67 97 11/15/21 06:30 85 22 115/67 99 11/15/21 06:00 85 12 137/70 97 11/15/21 05:30 86 3 L 137/70 100 11/15/21 05:00 86 19 110/46 99 11/15/21 04:30 79 16 93/48 100 11/15/21 04:00 98.2 F 80 100 17 100/50 100 11/15/21 03:30 21 100/50 100 11/15/21 03:00 86 19 114/63 99 11/15/21 02:30 81 17 114/63 100 11/15/21 02:00 87 18 121/64 99 11/15/21 01:30 94 10 L 103/55 97 11/15/21 01:09 98.2 F 83 18 103/55 99 11/15/21 01:00 84 18 106/52 98 11/15/21 00:30 88 16 116/68 99 11/15/21 00:00 98.3 F 100 29 H 124/56 100 11/14/21 23:30 27 H 112/54 100 11/14/21 23:00 98.3 F 86 10 L 95/63 100 11/14/21 22:35 98.3 F 84 15 95/63 100 11/14/21 22:30 87 21 95/54 100 11/14/21 22:29 100 11/14/21 22:05 98.3 F 84 19 95/54 100 11/14/21 22:00 87 12 100/51 100 11/14/21 21:55 98.3 F 88 16 100/51 100 11/14/21 21:16 100 11/14/21 18:12 97.6 F 83 17 107/58 97 11/14/21 14:55 97.4 F L 107/58 11/14/21 14:00 98.1 F 83 18 105/57 98 11/14/21 13:30 98.0 F 102/55 11/14/21 13:20 97.9 F 102/57 Intake and Output 11/14/21 11/15/21 11/15/21 22:59 06:59 14:59 Intake Total 0 1080 410 Output Total 475 Balance 0 605 410 Intake: IV 800 100 Sodium Chloride 0.9% 1, 800 100 000 ml @ 100 mls/hr IV . Q10H [facility] Rx#:[id number] Blood Product 0 280 310 Rc As-1 Unit 0 310 [id number] Rc Pheresis 2 As3 Unit 0 280 [id number] Output: Urine 475 Other: Voiding Method Toilet # Voids 3 1 # Bowel Movements 1 1 Weight 81.2 kg General appearance: The patient is alert, appears in no acute distress. HET: Head is normocephalic and atraumatic. Conjunctiva pink. Sclera anicteric. Neck: Supple without lymphadenopathy. Trachea midline. Heart: S1 S2. Regular rate and rhythm. Lungs: Clear to auscultation. Abdomen: Soft, nontender, nondistended with bowel sounds. No guarding or rigidity. Skin: No rashes. No jaundice. Extremities: Normal skin color and turgor. No pedal edema. Neurological: No focal deficits. Alert and oriented x1. Results CBC & Chem 7: 11/15/21 10:04 11/15/21 03:00 Labs: Abnormal Lab Results - Last 24 Hours (Table) 11/13/21 11/14/21 11/14/21 Range/Units 14:55 06:31 06:31 WBC 12.60 H (4.50-10.00) X 10*3/uL RBC 2.14 L (4.40-5.60) X 10*6/uL Hgb 6.3 L* (13.0-17.0) g/dL Hct 20.0 L (39.6-50.0) % MCHC 31.5 L (32.0-37.0) g/dL RDW 16.6 H (11.5-14.5) % Neutrophils # (1.3-7.7) k/uL Retic Count (0.10-1.80) % Sodium (137-145) mmol/L Anion Gap 8.40 L (10.00-18.00) mmol/L BUN (9-20) mg/dL BUN/Creatinine Ratio 23.71 H (12.00-20.00) Ratio Calcium 8.2 L (8.7-10.3) mg/dL Total Bilirubin 0.20 L (0.30-1.20) mg/dL AST 40 H (14-35) U/L ALT 50 H (10-49) U/L Lactate Dehydrogenase 293 H (120-246) U/L Total Protein 4.4 L (6.2-8.2) g/dL Albumin 2.2 L (3.8-4.9) g/dL Albumin/Globulin Ratio 1.01 L (1.60-3.17) g/dL Crossmatch See Detail 11/14/21 11/14/21 11/14/21 Range/Units 06:31 21:21 21:21 WBC 12.7 H (4.50-10.00) X 10*3/uL RBC 2.06 L (4.40-5.60) X 10*6/uL Hgb 6.0 L* (13.0-17.0) g/dL Hct 19.5 L* (39.6-50.0) % MCHC 30.9 L (32.0-37.0) g/dL RDW 15.8 H (11.5-14.5) % Neutrophils # 9.8 H (1.3-7.7) k/uL Retic Count 3.18 H (0.10-1.80) % Sodium 130 L (137-145) mmol/L Anion Gap (10.00-18.00) mmol/L BUN 27 H (9-20) mg/dL BUN/Creatinine Ratio (12.00-20.00) Ratio Calcium 7.2 L (8.7-10.3) mg/dL Total Bilirubin (0.30-1.20) mg/dL AST (14-35) U/L ALT (10-49) U/L Lactate Dehydrogenase (120-246) U/L Total Protein (6.2-8.2) g/dL Albumin (3.8-4.9) g/dL Albumin/Globulin Ratio (1.60-3.17) g/dL Crossmatch 11/15/21 11/15/21 Range/Units 03:00 03:00 WBC 12.9 H (4.50-10.00) X 10*3/uL RBC 2.17 L (4.40-5.60) X 10*6/uL Hgb 6.4 L* (13.0-17.0) g/dL Hct 19.8 L* (39.6-50.0) % MCHC (32.0-37.0) g/dL RDW 15.6 H (11.5-14.5) % Neutrophils # 10.2 H (1.3-7.7) k/uL Retic Count (0.10-1.80) % Sodium (137-145) mmol/L Anion Gap 8.90 L (10.00-18.00) mmol/L BUN (9-20) mg/dL BUN/Creatinine Ratio 23.90 H (12.00-20.00) Ratio Calcium 7.5 L (8.7-10.3) mg/dL Total Bilirubin (0.30-1.20) mg/dL AST (14-35) U/L ALT (10-49) U/L Lactate Dehydrogenase (120-246) U/L Total Protein 3.8 L (6.2-8.2) g/dL Albumin 1.9 L (3.8-4.9) g/dL Albumin/Globulin Ratio 1.00 L (1.60-3.17) g/dL Crossmatch Microbiology - Last 24 Hours (Table) 11/11/21 10:35 Blood Culture - Preliminary Blood No Growth after 72 hours 11/11/21 10:24 Blood Culture - Preliminary Blood No Growth after 72 hours Assessment and Plan (1) GI bleed Narrative/Plan: 1-year-old male who came into the emergency department for generalized weakness, frequent falls who has altered mental status changes was noted to have a hemoglobin of 6.7 on admission. He initially had an increase in his hemoglobin 10.1 but then again has had subsequent falls is low as 5.5. He is status post 5 units of PRBC transfusion. Recently diagnosed with metastatic adenocarcinoma of the lung during his last admission was seen for GI bleed and questionable colonic mass. He had an EGD and colonoscopy done by Dr. 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 The patient's been considered for immunotherapy however has social issues with decreased support at home as well as with transportation. Likely on patient having bleeding from cecal mass. At this time we'll defer to general surgery for recommendations. Current Visit: Yes Status: Acute Code(s): K92.2 - GASTROINTESTINAL HEMORRHAGE, UNSPECIFIED SNOMED Code(s): 35254605 (2) Acute blood loss anemia Current Visit: Yes Status: Acute Code(s): D62 - ACUTE POSTHEMORRHAGIC ANEMIA SNOMED Code(s): 514641166 (3) Cecum mass Current Visit: Yes Status: Acute Code(s): K63.89 - OTHER SPECIFIED DISEASES OF INTESTINE SNOMED Code(s): 8185328231 (4) Metastatic adenocarcinoma to lung Current Visit: Yes Status: Acute Code(s): C78.00 - SECONDARY MALIGNANT NEOPLASM OF UNSPECIFIED LUNG SNOMED Code(s): 1693395259653 (5) Mental status alteration Current Visit: Yes Status: Acute Code(s): R41.82 - ALTERED MENTAL STATUS, UNSPECIFIED SNOMED Code(s): 391022529 Plan: 1. Continue symptomatic and supportive care 2. Bleeding likely coming from cecal mass, defer management to general surgery 3. Patient may have diet as tolerated 4. Appreciate recommendations from hematology 5. Awaiting input from the patient's family regarding hospice 6. Protonix 40 mg daily GI prophylaxis Thank you for this consultation, we will continue to follow. Dr. Ellie Zapata I agree with the dictator's note, documented as a scribe by Anika Daly.
[2021-11-15] MEDS: PANTOPRAZOLE 40 MG/10 ML VIAL IVP SCH ×2 (14:27→20:57)
[2021-11-16] MEDS: AMPICILLIN-SULBACTAM 3 GM in SODIUM CHLORIDE 0.9% 100 ML IVPB SCH ×4 (00:38→17:27)
[2021-11-16] MEDS: SODIUM CHLORIDE 0.9% 1,000 ML IV SCH ×2 (06:17→17:27)
[2021-11-16 08:26] LABS: Anisocytosis Slight; Basophils # (A) 0.1 k/uL (0-0.2); Basophils % (A) 0 %; Eosinophils # (A) 0.3 k/uL (0-0.7); Eosinophils % (A) 2 %; HCT 23.4 % (39.0-53.0); HGB 7.6 gm/dL (13.0-17.5); Hypochromasia Slight; Lymphocytes # (A) 1.3 k/uL (1.0-4.8); Lymphocytes % (A) 8 %; MCH 29.8 pg (25.0-35.0); MCHC 32.6 g/dL (31.0-37.0); MCV 91.4 fL (80.0-100.0); Mean Platelet Volume 7.5; Monocytes % (A) 6 %; Neutrophils # (A) 14.3 k/uL (1.3-7.7); Neutrophils % (A) 84 %; Platelet Count 315 k/uL (150-450); Poikilocytosis Slight; RBC 2.56 m/uL (4.30-5.90); RDW 17.4 % (11.5-15.5); WBC 17.2 k/uL (3.8-10.6)
--- NOTE | 2021-11-16 08:28 | P.PN ---
Subjective Progress Note Date: 11/16/21 80-year-old male patient got transferred to the intensive care unit for possible GI bleed and anemia. The patient is known to us as the patient has metastatic adenocarcinoma of the lung. The patient is also known to have COPD, hypertension and hyperlipidemia. He carries [id number] smoking history and he quit smoking back in 1982. The patient had a mass in the right upper lobe with a masslike consolidation and the patient also had right hilar lymphadenopathy and soft tissue mass within the right carotid KG involving the second and the third and the patient had a soft tissue nodule/mass in the posterior right scapula. The CT of the chest showed a 34 x 26 x 40 mm mass in the anterior pectoralis area on the right and the patient had a 12 mm right scapular mass and the right upper lobe mass. Biopsy of the scapular mass with systemic adenocarcinoma of lung primary. CAT scan of the abdomen and pelvis showed 2 masses in the cecum and colonoscopy was done on 09/30/2021 showing adenocarcinom a of a lung primary. The masses were 30 mm and 23 mm in size and the cecum. The patient had a PPD on 1 positive in the order of 80-90% and based on that the patient was started on Keytruda /immunotherapy. During this current admission, he was found to have a dental abscess. He was started on antibiotics accordingly. At the same time the patient has becoming was becoming more debilitated and the patient's was unable to take care of him at home and there was some ongoing social issues. During this current admission, dialysis social worker and renal case manager have been involved in his care. At the same time, the patient difficulties with anemia. His hemoglobin was low and it went as low as 5.9 and he received packed RBC transfusion and during this current admission the patient has associated total of 5 units of packed RBCs. The most recent hemoglobin level is at 6.4 and the platelet count is at 328 and the patient had a coagulation profile that was essentially within normal limits. Based on ongoing issues with anemia and GI bleed, the patient got transferred to the intensive care unit. Surgical consultation has been obtained and GI consultation has also been obtained. The colonoscopy on 10/04/21 showed a lobulated mass at the base of the cecum with some old blood present there. Biopsies of the cecal mass took place. The patient had 3 polyps involving the ascending colon and hepatic flexure. These were not removed. The remainder of the transverse descending sigmoid and rectum was free of any neoplastic inflammatory or polypoid lesions. Mild scattered diverticulosis was seen. She briefly became hypotensive and currently is hemodynamically stable on no pressors. Getting making a total of 5 units during this current admission. 11/16/2021, the patient still having episodic lower GI bleed. I was told that the patient is around 4 more episodes of maroon colored bloody stool. Noted the patient got transfused with a total of 2 units of packed RBC yesterday and the subsequent hemoglobin was at 9 from yesterday and the repeat hemoglobin is pending from today. Otherwise, no other complaints. No nausea no vomiting. No abdominal pain. GI is on the case. General surgeries on the case. We are monitoring this GI bleed conservatively. WBC of 20.2 with a hemoglobin of 9 and a platelet count of 188. The labs shows a normal coagulation profile. I's from yesterday were all within normal limits. At times, the patient was also getting confused. He is following some simple commands. There are some intentions to consider hospice care on this patient. Objective - Vital Signs Vital signs: Vital Signs Temp 97.5 F L 11/16/21 04:00 Pulse 79 11/16/21 05:00 Resp 16 11/16/21 05:00 BP 112/57 11/16/21 05:00 Pulse Ox 98 11/16/21 05:00 FiO2 21 11/13/21 07:14 Intake & Output 11/15/21 11/16/21 11/16/21 18:59 06:59 18:59 Intake Total 1510 1300 100 Output Total 450 200 Balance 1060 1100 100 Weight 83.5 kg Intake: IV 1200 1300 100 Ampicillin-Sulbactam 3 gm 100 200 In Sodium Chloride 0.9% 100 ml @ 200 mls/hr IVPB Q6HR [facility] Rx#:[id number] Sodium Chloride 0.9% 1, 1100 1100 100 000 ml @ 100 mls/hr IV . Q10H [facility] Rx#:[id number] Blood Product 310 Rc As-1 Unit 310 [id number] Output: Urine 450 200 Other: Voiding Method Urinal Urinal # Voids 0 1 # Bowel Movements 1 1 - Exam Patient is lying in the bed comfortably, no acute distress, awake alert and oriented. The patient is currently on room air oxygen and the patient is resting comfortably in bed. Patient is currently on 2 L of oxygen by nasal cannula. HEENT: Normocephalic. Neck is supple. Pupils reactive. Nostrils clear. Oral cavity is moist. Neck reveals no JVD, carotid bruits, or thyromegaly. CHEST EXAMINATION: Trachea is central. Symmetrical expansion. Bibasilar diminished sounds. No wheezing or rhonchi.. CARDIAC: Normal S1, S2 with no gallops. No murmurs ABDOMEN: Soft. Bowel sounds normal. No organomegaly. No abdominal bruits. Extremities: reveal no edema. No clubbing or cyanosis Neurologically awake, alert, oriented. . No gross focal deficits noted Skin: No rash or skin lesions. Psychiatric: Cooperative. Musculoskeletal: No joint swelling or deformity. Normal range of motion. - Labs CBC & Chem 7: 11/15/21 10:04 11/15/21 03:00 Labs: Abnormal Lab Results - Last 24 Hours (Table) 11/13/21 11/15/21 11/15/21 Range/Units 14:55 03:00 10:04 WBC 20.2 H (3.8-10.6) k/uL RBC 3.07 L (4.30-5.90) m/uL Hgb 9.0 L D (13.0-17.5) gm/dL Hct 27.8 L (39.0-53.0) % RDW 16.9 H (11.5-15.5) % Anion Gap 8.90 L (10.00-18.00) mmol/L BUN/Creatinine Ratio 23.90 H (12.00-20.00) Ratio Calcium 7.5 L (8.7-10.3) mg/dL Total Protein 3.8 L (6.2-8.2) g/dL Albumin 1.9 L (3.8-4.9) g/dL Albumin/Globulin Ratio 1.00 L (1.60-3.17) g/dL Crossmatch See Detail Microbiology - Last 24 Hours (Table) 11/11/21 10:35 Blood Culture - Preliminary Blood No Growth after 96 hours 11/11/21 10:24 Blood Culture - Preliminary Blood No Growth after 96 hours Assessment and Plan Plan: 1 lower GI bleeding. The patient is having ongoing lower GI bleed and the patient came in to the ICU with a hemoglobin of 6.7 and the patient received an additional 2 units of packed RBC and the total amount of packed RBC given to him during this current admission is a total of 5 units. Normal coagulation profile. Normal platelet counts. The patient underwent a colonoscopy on 10/04/2021 and he has a metastatic colonic mass in the cecum which is thought to be the source of bleed . Most recent hemoglobin from 11/15/2021 is up to 9 after receiving a total of 2 units of packed RBCs. Nevertheless, the patient is still having low intermittent GI bleed for the reasons mentioned earlier. 2 Severe Anemia 3 metastatic adenocarcinoma of the lung, biopsy confirmed with a fine-needle aspirate of the chest wall mass currently being considered for Keytruda/immunotherapy for metastatic adenocarcinoma of the lung 3 Remote 25 year history of smoking. 4 generalized weakness, severe debility, frequent falls, all related to metastatic lung cancer in addition to comorbidities stated above. 5 History of hypertension. 6 History of anxiety. 7 Hyperlipidemia. 8 Poor historian. 9 Tooth abscess currently on Unasyn. Plan Keep the patient intensive care unit for now pending further decisions on his CODE STATUS as the patient is being considered for hospice. Keep IV fluids at the rate of 100 mL an hour No pressors Watch for any GI bleeding GI services in general surgery has been consulted. Monitor hemoglobin IV Protonix Hold Zestril Avoid anticoagulants for now Compression devices his lower extremities Hold immunotherapy for now poor prognosis secondary to above-mentioned comorbidities We'll try to enroll this patient either to palliative care or hospice. Awaiting further recommendations from hospice/palliative care and awaiting further discussion with the family. Oncology is also on the case. pured diet will follow . Protonix. Sleepy. The
[2021-11-16] MEDS: CHLORHEXIDINE GLUCONATE 15 ML CUP MUCOUS MEM SCH ×2 (09:14→20:53)
[2021-11-16] MEDS: PANTOPRAZOLE 40 MG/10 ML VIAL IVP SCH ×2 (09:14→20:54)
[2021-11-16] MEDS: ALPRAZolam 0.25 MG TAB PO SCH ×3 (09:15→21:02)
[2021-11-16] MEDS: FOLIC ACID 1 MG TAB PO SCH (09:15)
[2021-11-16] MEDS: PRIMIDONE 50 MG TAB PO SCH ×3 (09:15→21:02)
[2021-11-16] MEDS: carvediloL 12.5 MG TAB PO SCH ×2 (09:15→20:56)
[2021-11-16] MEDS: SYMBICORT 160-4.5 MCG INHALER INHALATION SCH ×2 (09:21→19:20)
--- NOTE | 2021-11-16 10:39 | P.PN ---
Subjective Progress Note Date: 11/16/21 Principal diagnosis: GI bleed, cecal mass This 81-year-old male who is still in the ICU who is admitted for generalized weakness and frequent falls with acute blood loss anemia. Patient was recently diagnosed metastatic pulmonary adenocarcinoma not currently under any treatment. He had an GT and colonoscopy on 09/30/[address] Arellano. 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 Conservative therapy at that time with referral to hematology. Patient today remains confused. Status post 5 units of PRBC transfusion. Today's Hemoglobin 7.6. Yesterday had 3 maroon colored stools none today. Denies any abdominal pain, nausea, or vomiting. Awaiting family meeting to discuss palliative care/hospice care. Objective - Vital Signs Vital signs: Vital Signs Temp 97.8 F 11/16/21 08:00 Pulse 86 11/16/21 08:00 Resp 18 11/16/21 08:00 BP 118/61 11/16/21 08:00 Pulse Ox 95 11/16/21 08:00 FiO2 21 11/13/21 07:14 Intake & Output 11/15/21 11/16/21 11/16/21 18:59 06:59 18:59 Intake Total 1510 1300 220 Output Total 450 200 Balance 1060 1100 220 Weight 83.5 kg Intake: IV 1200 1300 220 Ampicillin-Sulbactam 3 gm 100 200 In Sodium Chloride 0.9% 100 ml @ 200 mls/hr IVPB Q6HR [facility] Rx#:[id number] Sodium Chloride 0.9% 1, 1100 1100 220 000 ml @ 100 mls/hr IV . Q10H [facility] Rx#:[id number] Blood Product 310 Rc As-1 Unit 310 [id number] Output: Urine 450 200 Other: Voiding Method Urinal Urinal # Voids 0 1 1 # Bowel Movements 1 1 - Exam General appearance: The patient is alert, confused, appears in no acute distress. HET: Head is normocephalic and atraumatic. Conjunctiva pink. Sclera anicteric. Neck: Supple without lymphadenopathy. Abdomen: Soft, nontender, nondistended with bowel sounds. No guarding or rigidity. Extremities: Normal skin color and turgor. No pedal edema Skin: No rashes, no jaundice Neurological: No focal deficits. Alert and oriented x3. - Labs CBC & Chem 7: 11/16/21 08:09 11/15/21 03:00 Labs: Abnormal Lab Results - Last 24 Hours (Table) 11/15/21 11/16/21 Range/Units 10:04 08:09 WBC 20.2 H 17.2 H (3.8-10.6) k/uL RBC 3.07 L 2.56 L (4.30-5.90) m/uL Hgb 9.0 L D 7.6 L (13.0-17.5) gm/dL Hct 27.8 L 23.4 L (39.0-53.0) % RDW 16.9 H 17.4 H (11.5-15.5) % Neutrophils # 14.3 H (1.3-7.7) k/uL Microbiology - Last 24 Hours (Table) 11/11/21 10:35 Blood Culture - Preliminary Blood No Growth after 96 hours 11/11/21 10:24 Blood Culture - Preliminary Blood No Growth after 96 hours Assessment and Plan (1) GI bleed Narrative/Plan: 1-year-old male who came into the emergency department for generalized weakness, frequent falls who has altered mental status changes was noted to have a hemoglobin of 6.7 on admission. He initially had an increase in his hemoglobin 10.1 but then again has had subsequent falls is low as 5.5. He is status post 5 units of PRBC transfusion. Recently diagnosed with metastatic adenocarcinoma of the lung during his last admission was seen for GI bleed and questionable colonic mass. He had an EGD and colonoscopy done by Dr. 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 The patient's been considered for immunotherapy however has social issues with decreased support at home as well as with transportation. Likely on patient having bleeding from cecal mass. At this time we'll defer to general surgery for recommendations. Current Visit: Yes Status: Acute Code(s): K92.2 - GASTROINTESTINAL HEMORRHAGE, UNSPECIFIED SNOMED Code(s): 29736733 (2) Acute blood loss anemia Current Visit: Yes Status: Acute Code(s): D62 - ACUTE POSTHEMORRHAGIC ANEMIA SNOMED Code(s): 279834699 (3) Cecum mass Current Visit: Yes Status: Acute Code(s): K63.89 - OTHER SPECIFIED DISEASES OF INTESTINE SNOMED Code(s): 3963039224 (4) Metastatic adenocarcinoma to lung Current Visit: Yes Status: Acute Code(s): C78.00 - SECONDARY MALIGNANT NEOPLASM OF UNSPECIFIED LUNG SNOMED Code(s): 9508524166455 (5) Mental status alteration Current Visit: Yes Status: Acute Code(s): R41.82 - ALTERED MENTAL STATUS, UNSPECIFIED SNOMED Code(s): 246093285 Plan: 1. Continue symptomatic and supportive care 2. Bleeding likely coming from cecal mass, defer management to general surgery 3. Patient may have diet as tolerated 4. Appreciate recommendations from hematology 5. Awaiting input from the patient's family regarding hospice, hospital meeting this afternoon or evening 6. Protonix 40 mg daily GI prophylaxis Thank you for this consultation, we will sign off at this time. Dr. Ellie Zapata I agree with the dictator's note, documented as a scribe by Anika Daly.
--- NOTE | 2021-11-16 11:43 | P.CONS ---
History of Present Illness - Reason for Consult Consult date: 11/16/21 goals of care Requesting physician: Chiara Ruff - Chief Complaint weakness - History of Present Illness 80-year-old male patient got transferred to the intensive care unit for possible GI bleed and anemia. The patient has metastatic adenocarcinoma of the lung. The patient is also known to have COPD, hypertension and hyperlipidemia. The patient had a mass in the right upper lobe with a masslike consolidation and the patient also had right hilar lymphadenopathy and soft tissue mass within the right carotid KG involving the second and the third and the patient had a soft tissue nodule/mass in the posterior right scapula. The CT of the chest showed a 34 x 26 x 40 mm mass in the anterior pectoralis area on the right and the patient had a 12 mm right scapular mass and the right upper lobe mass. Biopsy of the scapular mass with systemic adenocarcinoma of lung primary. CAT scan of the abdomen and pelvis showed 2 masses in the cecum and colonoscopy was done on 09/30/2021 showing adenocarcinoma of a lung primary. The masses were 30 mm and 23 mm in size and the cecum. The patient had a PPD on 1 positive in the order of 80-90% and based on that the patient was started on Keytruda /immunotherapy. During this current admission, he was found to have a dental abscess. He was started on antibiotics accordingly. His hemoglobin was low and it went as low a s 5.9 and he received packed RBC transfusion and during this current admission the patient has associated total of 5 units of packed RBCs. Surgical consultation has been obtained and GI consultation has also been obtained. The colonoscopy on 10/04/21 showed a lobulated mass at the base of the cecum with some old blood present there. Biopsies of the cecal mass took place. The patient is not a surgical candidate. He continues to have significant rectal bleeding and had received total of 5 units during this current admission. Review of Systems Review Of Systems: Constitutional: No fever, no chills, no night sweats. No weight change. Reports weakness and fatigue. HEENT: No headache. No blurred vision or double vision, no loss of vision. Reports hard of hearing. Lungs: No shortness of breath, cough, no sputum production. No wheezing. Cardiovascular: No chest pain, no lower extremity edema. No palpitations. Abdominal: No abdominal pain. No nausea, vomiting. Reports bloody stools. No loss of appetite. Genitourinary: No dysuria, increased frequency, urgency. No urinary retention. Musculoskeletal: No myalgias. Reports muscle weakness and gait dysfunction, no frequent falls. Integumentary: No wounds, no lesions. No rash or pruritus. Neurologic: No aphasia. No facial droop. No head injury. No headache. No paralysis. No paresthesia. Reports forgetfulness Psychiatric: No depression. No suicidal thoughts. Reports anxiety. Past Medical History Past Medical History: Cancer, Hypertension, Syncope Additional Past Medical History / Comment(s): Lung cancer, skin cancer and colon cancer, History of Any Multi-Drug Resistant Organisms: None Reported Past Surgical History: No Surgical Hx Reported Past Anesthesia/Blood Transfusion Reactions: No Reported Reaction Past Psychological History: No Psychological Hx Reported Smoking Status: Former smoker Past Alcohol Use History: None Reported Past Drug Use History: None Reported - Past Family History Father Family Medical History: Unable to Obtain Mother Family Medical History: Unable to Obtain Medications and Allergies Home Medications Medication Instructions Recorded Confirmed Type Carvedilol [Coreg] 12.5 mg PO DAILY@0800 07/15/20 11/09/21 History Budesonide/Formoterol Fumarate 2 puff INHALATION RT-BID 09/23/21 11/09/21 History [Symbicort 160-4.5 Mcg Inhaler] Famotidine 20 mg PO DAILY@1200 09/23/21 11/09/21 History Primidone [Mysoline] 50 mg PO TID@0800,1400,2200 09/23/21 11/09/21 History amLODIPine BESYLATE/BENAZEPRIL 1 cap PO DAILY@1600 09/23/21 11/09/21 History [Lotrel 5-10 MG] Carvedilol [Coreg] 25 mg PO HS 10/28/21 11/09/21 History ALPRAZolam [Xanax] 0.25 mg PO TID #30 tab 11/08/21 11/09/21 Rx Allergies Allergy/AdvReac Type Severity Reaction Status Date / Time No Known Allergies Allergy Verified 11/09/21 07:25 Physical Exam Vitals: Vital Signs Temp Pulse Pulse Pulse Pulse Resp BP 11/16/21 08:00 97.8 F 86 18 11/16/21 05:00 79 16 11/16/21 04:00 97.5 F L 80 90 27 H 11/16/21 01:00 93 25 H 134/107 11/16/21 00:00 98.2 F 93 16 110/56 11/15/21 23:00 87 88 23 96/45 11/15/21 22:00 84 22 115/57 11/15/21 21:40 89 25 H 11/15/21 21:00 93 93 20 117/53 11/15/21 20:00 98.3 F 97 100 25 H 112/75 11/15/21 19:00 94 17 110/67 11/15/21 18:00 98.3 F 30 H 110/67 11/15/21 17:00 93 12 117/61 11/15/21 16:00 89 100 76 30 H 114/63 11/15/21 15:00 105 H 35 H 11/15/21 14:00 93 20 114/60 11/15/21 13:00 30 H 120/62 11/15/21 12:00 94 100 18 112/54 11/15/21 11:00 90 19 94/44 BP Pulse Ox 11/16/21 08:00 118/61 95 11/16/21 05:00 112/57 98 11/16/21 04:00 112/58 99 11/16/21 01:00 98 11/16/21 00:00 98 11/15/21 23:00 98 11/15/21 22:00 98 11/15/21 21:40 100 11/15/21 21:00 115/57 100 11/15/21 20:00 98 11/15/21 19:00 98 11/15/21 18:00 11/15/21 17:00 98 11/15/21 16:00 98 11/15/21 15:00 98 11/15/21 14:00 98 11/15/21 13:00 93 L 11/15/21 12:00 100 11/15/21 11:00 98 Intake and Output 11/15/21 11/16/21 11/16/21 22:59 06:59 14:59 Intake Total 800 900 240 Output Total 250 0 Balance 550 900 240 Intake: IV 800 900 240 Ampicillin-Sulbactam 3 gm 200 100 In Sodium Chloride 0.9% 100 ml @ 200 mls/hr IVPB Q6HR [facility] Rx#:[id number] Sodium Chloride 0.9% 1, 600 800 240 000 ml @ 100 mls/hr IV . Q10H [facility] Rx#:[id number] Output: Urine 250 0 Other: Voiding Method Urinal Urinal Bedside Commode # Voids 1 1 1 # Bowel Movements 1 1 Weight 83.5 kg General: Patient awake alert and oriented x 2, to person and place. No acute distress. HEENT: Head is atraumatic, normocephalic Neck is supple. Sclerae are clear. Pupils equal, round and reactive to light bilaterally. CV: Heart regular in rate and rhythm positive S1 and S2. No S3. No S4. No clicks, rubs or murmurs. No JVD. Peripheral pulses equal. 2/4 Lungs: Diminished ilateral bases. No wheezes rales or rhonchi. Respirations even and nonlabored. No intercostal retractions. On RA Abdomen/GI: Soft. Bowel sounds present in all 4 quadrants. Bowel sounds normoactive. Mild abdominal tenderness Musculoskeletal/ Extremities: No tenderness on muscular exam. No ecchymosis. + generalized weakness Vascular: Radial pulses equal. 2/4. + weeping peripheral edema Skin: No rash. Neurologic: Awake, alert and oriented times 2. + Confusion and forgetfulness Psychiatric: Anxious. Results CBC & Chem 7: 11/16/21 08:09 11/15/21 03:00 Labs: Abnormal Lab Results - Last 24 Hours (Table) 11/16/21 Range/Units 08:09 WBC 17.2 H (3.8-10.6) k/uL RBC 2.56 L (4.30-5.90) m/uL Hgb 7.6 L (13.0-17.5) gm/dL Hct 23.4 L (39.0-53.0) % RDW 17.4 H (11.5-15.5) % Neutrophils # 14.3 H (1.3-7.7) k/uL Microbiology - Last 24 Hours (Table) 11/11/21 10:35 Blood Culture - Preliminary Blood No Growth after 96 hours 11/11/21 10:24 Blood Culture - Preliminary Blood No Growth after 96 hours Chest x-ray: report reviewed Assessment and Plan Assessment: Reason for consult - goals of care * No family present, patient confused and a poor historian Social * Occupation - retired, worked at [employer] for 33 years * Marital status - to . Marleny, for 38 years * Children/grandchildren - 4 adult children, 4 girls and 1 boy * Residence - House * Who do you reside with - * ETOH - No * Tobacco - Former smoker, quit 1982 * Illicit drugs - No Spiritual/Cultural * A spiritual person - Yes * Synagogue - [employer] * Belong to a particular tenriism - Yes, but cant remember name, in [place] * Beliefs a source of comfort and strength - yes * Tenriism or cultural practices restrictions - no * EOL considerations/rituals? none Functional Assessment * Able to walk independently - Not presently, was able to walk with walker [employer] * Assistive devices - walker * Able to use the bathroom independently - no * Continent - no * Require assistance bathing- yes * Able to feed self - yes * Who prepares meals - they are delivered * How many meals a day eaten - 2-3 * What percentage of meals eaten daily - 100% * Able to clean house/do laundry - some of it * Transportation - Family * Able to shop - no * Who manages medications - patient * Who manages finances - patient PPS score - 30% Psychological/Emotional * Dementia present - yes * Insight and judgment - Not intact * Depression - No * Anxiety - Yes * Suicidal thoughts - NO * Good support system - Yes, his and children * Patients goals - comfort * Frequent hospitalizations - Yes * Desire to keep coming back to the hospital for treatment - No Plan: Symptoms * Pain - 0/10 * Fatigue - yes * SOB - no, continue symbicort * Insomnia - sleeps well, continue melatonin * N/V - none * Anxiety - yes, continue xanax TID * Depression - no * Confusion - yes * Agitation - no * Hallucinations - none * Appetite/weight loss - good appetite, no changes, no recent weight loss. * Dysphagia - denies, however he is on a Dysphagia I, pureed diet * Constipation - none, LBM 5/24 * Incontinence - yes * Itch - none Summary/Goals - Spoke to the patient's daughter, Jennifer, via telephone. Explained palliative care and hospice philosophies. She stated the family met in the patient's room at the hospital yesterday to discuss his medical condition. Education was provided regarding patient's cancer and prognosis. The daughter stated the family already agreed that the patient should go to a hospice house. They would like to make sure he is comfortable and not suffering for whatever time he has remaining. His is unable to care for him at home anymore. She also stated that they discussed code status and would like to make him a DNR. Jennifer is not the DPOA. Spoke with the patient's , Marleny, via telephone. She gave permission to change the patient's code status to DNR. She also confirmed that the family agreed on hospice. She stated she would prefer [facility]. Spoke with patient. He is pleasantly confused. He seemed surprised when we discussed his poor prognosis. He agreed that he can not go home, however he is very worried about hospice services not being covered by his insurance. His main concern is that his is taken care of financially once he passes. Recommendations - Discharge to Hospice House Advanced Directives - none Code Status - Spoke to patient's , Marleny, and changed code status to DNR Thank you for this consult Lin Vivas [facility] Palliative Care [facility] [id number] Email: [email or web address] Time with Patient: Greater than 30
--- NOTE | 2021-11-16 12:16 | P.PN ---
Subjective Progress Note Date: 11/16/21 CHIEF COMPLAINT: Weakness HISTORY OF PRESENT ILLNESS: Surgical service following in regards to GI bleed. Patient remains in the ICU. He is still confused. He had 3 maroon-colored stools yesterday. Hemoglobin has dropped from 9-7.6. Palliative service is following. Patient's CODE STATUS has been changed to no code and they are working on possible arrangement for discharge to hospice house. No abdominal pain. Afebrile. WBC is down from 20.2-17.2 hemoglobin is down from 97.6 platelets 315 PHYSICAL EXAM: VITAL SIGNS: Reviewed. GENERAL: Well-developed in no acute distress. HEENT: No sclera icterus. Extraocular movements grossly intact. Moist buccal mucosa. Head is atraumatic, normocephalic. ABDOMEN: Soft. Nondistended. Nontender. NEUROLOGIC:confused ASSESSMENT: 1. Acute GI bleed 2. Acute blood loss anemia 3. Cecal mass noted on colonoscopy from 09/30/2021 4. History of metastatic adenocarcinoma of the lung PLAN: -No surgical intervention planned -Agree with considering hospice -Continue supportive care -Continue monitor hemoglobin -Continue to monitor for any signs or symptoms of bleeding Physician Head Teacher note has been reviewed by physician. Signing provider agrees with the documented findings, assessment, and plan of care. I have personally seen and examined the patient, reviewed the ROASTERMAN /PAs history, exam and MDM and agree with the assessment and plan as written. Based on total visit time, I have performed more than 50% of the visit. As above: Patient remains confused. Has had some bloody stools. Family pursuing hospice. We'll sign off. Please call if needed. Objective - Vital Signs Vital signs: Vital Signs Temp 97.8 F 11/16/21 08:00 Pulse 86 11/16/21 08:00 Resp 18 11/16/21 08:00 BP 118/61 11/16/21 08:00 Pulse Ox 95 11/16/21 08:00 FiO2 21 11/13/21 07:14 Intake & Output 11/15/21 11/16/21 11/16/21 18:59 06:59 18:59 Intake Total 1510 1300 500 Output Total 450 200 Balance 1060 1100 500 Weight 83.5 kg Intake: IV 1200 1300 500 Ampicillin-Sulbactam 3 gm 100 200 In Sodium Chloride 0.9% 100 ml @ 200 mls/hr IVPB Q6HR [facility] Rx#:[id number] Sodium Chloride 0.9% 1, 1100 1100 500 000 ml @ 100 mls/hr IV . Q10H [facility] Rx#:[id number] Blood Product 310 Rc As-1 Unit 310 [id number] Output: Urine 450 200 Other: Voiding Method Urinal Urinal Bedside Commode # Voids 0 1 1 # Bowel Movements 1 1 - Labs CBC & Chem 7: 11/16/21 08:09 11/15/21 03:00 Labs: Abnormal Lab Results - Last 24 Hours (Table) 11/16/21 Range/Units 08:09 WBC 17.2 H (3.8-10.6) k/uL RBC 2.56 L (4.30-5.90) m/uL Hgb 7.6 L (13.0-17.5) gm/dL Hct 23.4 L (39.0-53.0) % RDW 17.4 H (11.5-15.5) % Neutrophils # 14.3 H (1.3-7.7) k/uL Microbiology - Last 24 Hours (Table) 11/11/21 10:35 Blood Culture - Preliminary Blood No Growth after 96 hours 11/11/21 10:24 Blood Culture - Preliminary Blood No Growth after 96 hours
--- NOTE | 2021-11-16 14:16 | CDI ---
Documentation Clarification Form Date: 11/16/2021 01:41:00 PM From: Sabra Kaminski RN, CCDS Admit Date: 11/09/2021 06:52:00 AM Patient Name: Jose Blue Visit Number: [id number] Discharge Date: ATTENTION: The Clinical Documentation Specialists (CDI) and [facility] Coding Staff appreciate your assistance in clarifying documentation. Please respond to the clarification below the line at the bottom and electronically sign. The CDI & [facility] Coding staff will review the response and follow-up if needed. Please note: Queries are made part of the Legal Health Record. If you have any questions, please contact the author of this message via ITS. Dr. Usman Alfonso Your patient has the documented symptom of Altered Mental Status in the ED assessment. Additional clarification regarding the etiology/cause of this symptom is requested. 11/11 Oncology progress note: Mental status changes and weakness in ICU, confused. Recent MRI brain no evidence of metastatic cancer, recent tooth infection and elevated troponin concern for progressive infection. History/Risk Factors: Cancer to lung, skin and colon, Hypertension, Former smoker Clinical Indicators: 81-year-old male present to ED with weakness, altered mental status. Generalized weakness and fatigue and fell at home. 11/10 physical assessment has patient awake alert and confused and agitated. 11/10 Labs: WBC 11.4, HGB 7.2, 22.8, Sodium 129, Troponin I 0.084, Covid -19 Not detected 11/15 Labs: WBC 20.2 HGB 9.0, 27.8, Chest X Ray: Right upper lobe consolidation not significantly different than recent exam. Treatment: ICU/Telemetry monitoring Monitor Neuro checks per protocol Monitor CBC daily, Transfuse PRBC per orders Please clarify the etiology of the symptom of Altered Mental Status: [ ] Metabolic encephalopathy due to (specify) [ ] Dementia (if know, specify Type and if with/without Behavioral Disturbance) [ ] Other condition (please specify) [ ] Unable to determine (Template Last Revised: July 2020) MTDD
--- NOTE | 2021-11-16 14:34 | CDI ---
Documentation Clarification Form Date: 11/16/2021 02:17:19 PM From: aSbra Kaminski RN, CCDS Admit Date: 11/09/2021 06:52:00 AM Patient Name: Jose Blue Visit Number: [id number] Discharge Date: ATTENTION: The Clinical Documentation Specialists (CDI) and [facility] Coding Staff appreciate your assistance in clarifying documentation. Please respond to the clarification below the line at the bottom and electronically sign. The CDI & [facility] Coding staff will review the response and follow-up if needed. Please note: Queries are made part of the Legal Health Record. If you have any questions, please contact the author of this message via ITS. Dr. Lawrence Morgan Mild to Moderate protein calorie malnutrition is documented in your progress notes starting on 11/10/21 and continue in subsequent notes. Additional clarification regarding the severity of malnutrition is requested. History/Risk Factors: Anemia, Hypertension, Metastatic lung cancer, colon mass, Hyponatremia, Asthma/COPD Clinical Indicators: 81-year-old male present with generalized weakness, ruled in for anemia with past medical history of lung and colon cancer. His nutrition intake per nutritional assessment is poor. 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
--- NOTE | 2021-11-16 19:50 | PN ---
PROGRESS NOTE DATE OF SERVICE: 11/15/2021 CHIEF COMPLAINT: GI bleed. HISTORY OF PRESENT ILLNESS: This gentleman is fairly stable at this time. There is no clear evidence of active bleeding. He is somewhat delirious and confused. REVIEW OF SYSTEMS: He cannot relate any symptoms and is inappropriate. PHYSICAL EXAMINATION: Blood pressure is 109/52. He is pale. Chest demonstrates scattered rales. The cardiac exam is unremarkable. Abdomen is soft, nontender. IMPRESSION: 1. Gastrointestinal bleed. 2. Carcinoma of the colon. 3. Adenocarcinoma of the lung. 4. Blood loss anemia. PLAN: Continue efforts to stabilize the patient in ICU. Prognosis is poor. MMODL / IJN: [id number] /
--- NOTE | 2021-11-16 20:00 | PN ---
PROGRESS NOTE DATE OF SERVICE: 11/16/2021 CHIEF COMPLAINT: GI bleed and blood-loss anemia. HISTORY OF PRESENT ILLNESS: Currently the patient's vital signs are stable. He is probably not actively bleeding at this time. PHYSICAL EXAMINATION: His vital signs are normal with a pulse of 85. He remains pale. He is confused. Chest clear except for occasional rhonchi and the cardiac exam is normal. Abdomen is soft and there are no masses. IMPRESSION: 1. Lower gastrointestinal bleed. 2. Blood-loss anemia. 3. Carcinoma of the colon. 4. Adenocarcinoma of the lung. PLAN: Continue efforts to stabilize him before moving out of ICU and then he will become a discharge dilemma again. MMODL / IJN: [id number] /
[2021-11-17] MEDS: AMPICILLIN-SULBACTAM 3 GM in SODIUM CHLORIDE 0.9% 100 ML IVPB SCH ×4 (00:32→17:23)
[2021-11-17 06:08] LABS: Anisocytosis Slight; Basophils % (A) 0 %; Eosinophils # (A) 0.2 k/uL (0-0.7); Eosinophils % (A) 2 %; HCT 22.4 % (39.0-53.0); HGB 7.1 gm/dL (13.0-17.5); Hypochromasia Slight; Lymphocytes # (A) 1.2 k/uL (1.0-4.8); Lymphocytes % (A) 8 %; MCH 29.3 pg (25.0-35.0); MCHC 31.6 g/dL (31.0-37.0); MCV 92.9 fL (80.0-100.0); Mean Platelet Volume 7.6; Monocytes # (A) 0.8 k/uL (0-1.0); Monocytes % (A) 6 %; Neutrophils # (A) 11.7 k/uL (1.3-7.7); Neutrophils % (A) 83 %; Platelet Count 301 k/uL (150-450); Poikilocytosis Slight; RBC 2.41 m/uL (4.30-5.90); RDW 17.3 % (11.5-15.5); WBC 14.1 k/uL (3.8-10.6)
[2021-11-17] MEDS: SODIUM CHLORIDE 0.9% 1,000 ML IV SCH (08:18)
[2021-11-17] MEDS: CHLORHEXIDINE GLUCONATE 15 ML CUP MUCOUS MEM SCH ×2 (08:23→21:26)
[2021-11-17] MEDS: PANTOPRAZOLE 40 MG/10 ML VIAL IVP SCH (08:23)
[2021-11-17] MEDS: ALPRAZolam 0.25 MG TAB PO SCH ×3 (08:23→21:22)
[2021-11-17] MEDS: PRIMIDONE 50 MG TAB PO SCH ×3 (08:24→21:24)
[2021-11-17] MEDS: carvediloL 12.5 MG TAB PO SCH ×2 (08:24→21:23)
[2021-11-17] MEDS: FOLIC ACID 1 MG TAB PO SCH (08:24)
--- NOTE | 2021-11-17 08:49 | P.PN ---
Subjective Progress Note Date: 11/17/21 80-year-old male patient got transferred to the intensive care unit for possible GI bleed and anemia. The patient is known to us as the patient has metastatic adenocarcinoma of the lung. The patient is also known to have COPD, hypertension and hyperlipidemia. He carries [id number] smoking history and he quit smoking back in 1982. The patient had a mass in the right upper lobe with a masslike consolidation and the patient also had right hilar lymphadenopathy and soft tissue mass within the right carotid KG involving the second and the third and the patient had a soft tissue nodule/mass in the posterior right scapula. The CT of the chest showed a 34 x 26 x 40 mm mass in the anterior pectoralis area on the right and the patient had a 12 mm right scapular mass and the right upper lobe mass. Biopsy of the scapular mass with systemic adenocarcinoma of lung primary. CAT scan of the abdomen and pelvis showed 2 masses in the cecum and colonoscopy was done on 09/30/2021 showing adenocarcinom a of a lung primary. The masses were 30 mm and 23 mm in size and the cecum. The patient had a PPD on 1 positive in the order of 80-90% and based on that the patient was started on Keytruda /immunotherapy. During this current admission, he was found to have a dental abscess. He was started on antibiotics accordingly. At the same time the patient has becoming was becoming more debilitated and the patient's was unable to take care of him at home and there was some ongoing social issues. During this current admission, director social welfare and case folder have been involved in his care. At the same time, the patient difficulties with anemia. His hemoglobin was low and it went as low as 5.9 and he received packed RBC transfusion and during this current admission the patient has associated total of 5 units of packed RBCs. The most recent hemoglobin level is at 6.4 and the platelet count is at 328 and the patient had a coagulation profile that was essentially within normal limits. Based on ongoing issues with anemia and GI bleed, the patient got transferred to the intensive care unit. Surgical consultation has been obtained and GI consultation has also been obtained. The colonoscopy on 10/04/21 showed a lobulated mass at the base of the cecum with some old blood present there. Biopsies of the cecal mass took place. The patient had 3 polyps involving the ascending colon and hepatic flexure. These were not removed. The remainder of the transverse descending sigmoid and rectum was free of any neoplastic inflammatory or polypoid lesions. Mild scattered diverticulosis was seen. She briefly became hypotensive and currently is hemodynamically stable on no pressors. Getting making a total of 5 units during this current admission. 11/16/2021, the patient still having episodic lower GI bleed. I was told that the patient is around 4 more episodes of maroon colored bloody stool. Noted the patient got transfused with a total of 2 units of packed RBC yesterday and the subsequent hemoglobin was at 9 from yesterday and the repeat hemoglobin is pending from today. Otherwise, no other complaints. No nausea no vomiting. No abdominal pain. GI is on the case. General surgeries on the case. We are monitoring this GI bleed conservatively. WBC of 20.2 with a hemoglobin of 9 and a platelet count of 188. The labs shows a normal coagulation profile. I's from yesterday were all within normal limits. At times, the patient was also getting confused. He is following some simple commands. There are some intentions to consider hospice care on this patient. 11/17/2021, the patient is still having episodic maroon color stool. Hemoglobin is up from 9 and is currently down to 7.1. Hemodynamically stable. No abdominal pain. No nausea. No vomiting. No emesis. The platelet counts are stable at 301. The patient's is on and off confused. He is able to follow simple commands. He has consented for hospice and the patient is awaiting insurance authorization to be moved to the hospice home. Noted the patient is known to have metastatic adenocarcinoma of the lung. The patient is also known to have colonic diverticulosis and previous colonic mass consistent with metastatic adenocarcinoma of a lung primary and with increasing this is the source of bleeding. During this current hospitalization, the patient was transfused with a total of 5 units of packed RBC. Extremely debilitated and weak, not a candidate for any further treatment regarding lung cancer or GI bleed. Objective - Vital Signs Vital signs: Vital Signs Temp 98 F 11/17/21 00:00 Pulse 79 11/17/21 05:03 Resp 10 L 11/17/21 05:03 BP 117/64 11/17/21 05:03 Pulse Ox 97 11/17/21 05:03 FiO2 21 11/13/21 07:14 Intake & Output 0511/17/21 11/17/21 18:59 06:59 18:59 Intake Total 1040 220 Balance 1040 220 Weight 82.4 kg Intake: IV 1040 220 Sodium Chloride 0.9% 1, 0 220 000 ml @ 100 mls/hr IV . Q10H [facility] Rx#:[id number] Other: Voiding Method Bedside Commode Bedside Commode # Voids 1 1 # Bowel Movements 1 1 - Exam Patient is lying in the bed comfortably, no acute distress, awake alert and oriented. The patient is currently on room air oxygen and the patient is resting comfortably in bed. Patient is currently on 2 L of oxygen by nasal cannula. HEENT: Normocephalic. Neck is supple. Pupils reactive. Nostrils clear. Oral cavity is moist. Neck reveals no JVD, carotid bruits, or thyromegaly. CHEST EXAMINATION: Trachea is central. Symmetrical expansion. Bibasilar diminished sounds. No wheezing or rhonchi.. CARDIAC: Normal S1, S2 with no gallops. No murmurs ABDOMEN: Soft. Bowel sounds normal. No organomegaly. No abdominal bruits. Extremities: reveal no edema. No clubbing or cyanosis Neurologically awake, alert, oriented. . No gross focal deficits noted Skin: No rash or skin lesions. Psychiatric: Cooperative. Musculoskeletal: No joint swelling or deformity. Normal range of motion. - Labs CBC & Chem 7: 11/17/21 05:38 11/15/21 03:00 Labs: Abnormal Lab Results - Last 24 Hours (Table) 11/13/21 11/17/21 Range/Units 14:55 05:38 WBC 14.1 H (3.8-10.6) k/uL RBC 2.41 L (4.30-5.90) m/uL Hgb 7.1 L (13.0-17.5) gm/dL Hct 22.4 L (39.0-53.0) % RDW 17.3 H (11.5-15.5) % Neutrophils # 11.7 H (1.3-7.7) k/uL Crossmatch See Detail Microbiology - Last 24 Hours (Table) 11/11/21 10:35 Blood Culture - Preliminary Blood No Growth after 120 hours 11/11/21 10:24 Blood Culture - Preliminary Blood No Growth after 120 hours Assessment and Plan Plan: 1 lower GI bleeding. The patient is having ongoing lower GI bleed and the patient came in to the ICU with a hemoglobin of 6.7 and the patient received an additional 2 units of packed RBC and the total amount of packed RBC given to him during this current admission is a total of 5 units. Normal coagulation p rofile. Normal platelet counts. The patient underwent a colonoscopy on 10/04/2021 and he has a metastatic colonic mass in the cecum which is thought to be the source of bleed . The patient continues to have on and off bleeding and hemoglobin is up to 7.1. No plans for coronary intervention. Patient /family has consented for hospice care and the patient is awaiting transfer to the hospice house. 2 Severe Anemia , hemoglobin is down to 7.1 3 metastatic adenocarcinoma of the lung, biopsy confirmed with a fine-needle aspirate of the chest wall mass currently being considered for Keytruda /immunotherapy for metastatic adenocarcinoma of the lung 3 Remote 25 year history of smoking. 4 generalized weakness, severe debility, frequent falls, all related to metastatic lung cancer in addition to comorbidities stated above. 5 History of hypertension. 6 History of anxiety. 7 Hyperlipidemia. 8 Poor historian. 9 Tooth abscess currently on Unasyn. Plan Awaiting insurance authorization for hospice home No plans for transfusion Monitor GI bleed Keep IV fluids at KVO No pressors IV Protonix Hold Zestril Avoid anticoagulants for now Compression devices his lower extremities poor prognosis secondary to above-mentioned comorbidities Enrolling in hospice. pured diet will follow DNR/DNI Hospice Transfer to Med/surg, pending transfer to hospice house
[2021-11-17] MEDS: SYMBICORT 160-4.5 MCG INHALER INHALATION SCH ×2 (10:49→21:23)
--- NOTE | 2021-11-17 11:28 | P.PN ---
Subjective Progress Note Date: 11/17/21 Principal diagnosis: GIB 80-year-old male patient got transferred to the intensive care unit for possible GI bleed and anemia. The patient has metastatic adenocarcinoma of the lung. The patient is also known to have COPD, hypertension and hyperlipidemia. The patient had a mass in the right upper lobe with a masslike consolidation and the patient also had right hilar lymphadenopathy and soft tissue mass within the right carotid KG involving the second and the third and the patient had a soft tissue nodule/mass in the posterior right scapula. The CT of the chest showed a 34 x 26 x 40 mm mass in the anterior pectoralis area on the right and the patient had a 12 mm right scapular mass and the right upper lobe mass. Biopsy of the scapular mass with systemic adenocarcinoma of lung primary. CAT scan of the abdomen and pelvis showed 2 masses in the cecum and colonoscopy was done on 09/30/2021 showing adenocarcinoma of a lung primary. The masses were 30 mm and 23 mm in size and the cecum. The patient had a PPD on 1 positive in the order of 80-90% and based on that the patient was started on Keytruda /immunotherapy. During this current admission, he was found to have a dental abscess. He was started on antibiotics accordingly. His hemoglobin was low and it went as low as 5.9 and he received packed RBC transfusion and during this current admission the patient has associated total of 5 units of packed RBCs. Surgical consultation has been obtained and GI consultation has also been obtained. The colonoscopy on 10/04/21 showed a lobulated mass at the base of the cecum with some old blood present there. Biopsies of the cecal mass took place. The patient is not a surgical candidate. He continues to have significant rectal bleeding and had received total of 5 units during this current admission. 11/16 Spoke to the patient's daughter, Jennifer, via telephone. Explained palliative care and hospice philosophies. She stated the family met in the patient's room at the hospital yesterday to discuss his medical condition. Education was provi ded regarding patient's cancer and prognosis. The daughter stated the family already agreed that the patient should go to a hospice house. They would like to make sure he is comfortable and not suffering for whatever time he has remaining. His is unable to care for him at home anymore. She also stated that they discussed code status and would like to make him a DNR. Jennifer is not the DPOA. Spoke with the patient's , Marleny, via telephone. She gave permission to change the patient's code status to DNR. She also confirmed that the family agreed on hospice. She stated she would prefer [facility]. Spoke with patient. He is pleasantly confused. He seemed surprised when we discussed his poor prognosis. He agreed that he can not go home, however he is very worried about hospice services not being covered by his insurance. His main concern is that his is taken care of financially once he passes. Objective - Vital Signs Vital signs: Vital Signs Temp 98 F 11/17/21 00:00 Pulse 85 11/17/21 07:08 Resp 19 11/17/21 07:08 BP 117/64 11/17/21 07:08 Pulse Ox 95 11/17/21 07:08 FiO2 21 11/13/21 07:14 Intake & Output 11/16/21 11/17/21 11/17/21 18:59 06:59 18:59 Intake Total 1040 220 Balance 1040 220 Weight 82.4 kg Intake: IV 1040 220 Sodium Chloride 0.9% 1, 1040 220 000 ml @ 100 mls/hr IV . Q10H [facility] Rx#:[id number] Other: Voiding Method Bedside Commode Bedside Commode Toilet Bedside Commode # Voids 1 1 1 # Bowel Movements 1 1 1 - Exam General: Patient awake alert and oriented x 2, to person and place. No acute distress. HEENT: Head is atraumatic, normocephalic Neck is supple. Sclerae are clear. Pupils equal, round and reactive to light bilaterally. CV: Heart regular in rate and rhythm positive S1 and S2. No S3. No S4. No clicks, rubs or murmurs. No JVD. Peripheral pulses equal. 2/4 Lungs: Diminished bilateral bases. No wheezes rales or rhonchi. Respirations even and nonlabored. No intercostal retractions. On RA Abdomen/GI: Soft. Bowel sounds present in all 4 quadrants. Bowel sounds normoactive. Mild abdominal tenderness Musculoskeletal/ Extremities: No tenderness on muscular exam. No ecchymosis. + generalized weakness Vascular: Radial pulses equal. 2/4. + weeping peripheral edema - improved Skin: Pale, No rash. Multiple scabs on b/l upper exremities Neurologic: Awake, alert and oriented times 2. + Confusion and forgetfulness Psychiatric: Anxious. - Labs CBC & Chem 7: 11/17/21 05:38 11/15/21 03:00 Labs: Abnormal Lab Results - Last 24 Hours (Table) 11/13/21 11/17/21 Range/Units 14:55 05:38 WBC 14.1 H (3.8-10.6) k/uL RBC 2.41 L (4.30-5.90) m/uL Hgb 7.1 L (13.0-17.5) gm/dL Hct 22.4 L (39.0-53.0) % RDW 17.3 H (11.5-15.5) % Neutrophils # 11.7 H (1.3-7.7) k/uL Crossmatch See Detail Microbiology - Last 24 Hours (Table) 11/11/21 10:35 Blood Culture - Preliminary Blood No Growth after 120 hours 11/11/21 10:24 Blood Culture - Preliminary Blood No Growth after 120 hours Assessment and Plan Assessment: ymptoms * Pain - 0/10 * Fatigue - yes * SOB - no, continue symbicort * Insomnia - sleeps well, continue melatonin * N/V - none * Anxiety - yes, continue xanax TID * Depression - no * Confusion - yes * Agitation - no * Hallucinations - none * Appetite/weight loss - good appetite, no changes, no recent weight loss. * Dysphagia - denies, however he is on a Dysphagia I, pureed diet * Constipation - none, LBM 5/25 - maroon in color * Incontinence - yes * Itch - none Plan: Summary/Goals - Patient resting in bed and appears anxious. Emotional support provided. He is talkative and seems a bit more confused then yesterday. Hgb 7.1 today. Vitals stable. Social work contacted [facility] business liaison manager. The plan is transfer the patient to a hospice hoe in the next 24-48 hours pending financial arrangements. The patient will be transferred to a med/surg unit in the meantime. Recommendations - Discharge to Hospice House Advanced Directives - none Code Status - Spoke to patient's , Marleny, and changed code status to DNR Thank you for this consult Lin Vivas [facility] Palliative Care [facility] [id number] Email: [email or web address] Time with Patient: Less than 30
[2021-11-17 12:33] VITALS: BMI 26.0
[2021-11-18] MEDS: PANTOPRAZOLE 40 MG/10 ML VIAL IVP SCH (00:27)
[2021-11-18] MEDS: MELATONIN 5 MG TABLET PO PRN (00:33)
[2021-11-18] MEDS: PANTOPRAZOLE 40 MG TABLET PO SCH ×3 (00:33→15:40)
[2021-11-18] MEDS: SODIUM CHLORIDE 0.9% 1,000 ML IV SCH (03:31)
[2021-11-18] MEDS: PRIMIDONE 50 MG TAB PO SCH ×3 (07:27→21:48)
[2021-11-18] MEDS: SYMBICORT 160-4.5 MCG INHALER INHALATION SCH ×2 (07:27→19:55)
[2021-11-18] MEDS: FOLIC ACID 1 MG TAB PO SCH (07:28)
[2021-11-18] MEDS: ALPRAZolam 0.25 MG TAB PO SCH ×2 (07:28→15:40)
[2021-11-18] MEDS: carvediloL 12.5 MG TAB PO SCH ×2 (07:28→21:48)
[2021-11-18] MEDS: CHLORHEXIDINE GLUCONATE 15 ML CUP MUCOUS MEM SCH ×2 (07:28→22:01)
--- NOTE | 2021-11-18 09:08 | P.PN ---
Subjective Progress Note Date: 11/18/21 80-year-old male patient got transferred to the intensive care unit for possible GI bleed and anemia. The patient is known to us as the patient has metastatic adenocarcinoma of the lung. The patient is also known to have COPD, hypertension and hyperlipidemia. He carries [id number] smoking history and he quit smoking back in 1982. The patient had a mass in the right upper lobe with a masslike consolidation and the patient also had right hilar lymphadenopathy and soft tissue mass within the right carotid KG involving the second and the third and the patient had a soft tissue nodule/mass in the posterior right scapula. The CT of the chest showed a 34 x 26 x 40 mm mass in the anterior pectoralis area on the right and the patient had a 12 mm right scapular mass and the right upper lobe mass. Biopsy of the scapular mass with systemic adenocarcinoma of lung primary. CAT scan of the abdomen and pelvis showed 2 masses in the cecum and colonoscopy was done on 09/30/2021 showing adenocarcinoma of a lung primary. The masses were 30 mm and 23 mm in size and the cecum. The patient had a PPD on 1 positive in the order of 80-90% and based on that the patient was started on Keytruda /immunotherapy. During this current admission, he was found to have a dental abscess. He was started on antibiotics accordingly. At the same time the patient has becoming was becoming more debilitated and the patient's was unable to take care of him at home and there was some ongoing social issues. During this current admission, geriatric social worker and case management director have been involved in his care. At the same time, the patient difficulties with anemia. His hemoglobin was low and it went as low as 5.9 and he received packed RBC transfusion and during this current admission the patient has associated total of 5 units of packed RBCs. The most recent hemoglobin level is at 6.4 and the platelet count is at 328 and the patient had a coagulation profile that was essentially within normal limits. Based on ongoing issues with anemia and GI bleed, the patient got transferred to the intensive care unit. Surgical consultation has been obtained and GI consultation has also been obtained. The colonoscopy on 10/04/21 showed a lobulated mass at the base of the cecum with some old blood present there. Biopsies of the cecal mass took place. The patient had 3 polyps involving the ascending colon and hepatic flexure. These were not removed. The remainder of the transverse descending sigmoid and rectum was free of any neoplastic inflammatory or polypoid lesions. Mild scattered diverticulosis was seen. She briefly became hypotensive and currently is hemodynamically stable on no pressors. Getting making a total of 5 units during this current admission. 11/16/2021, the patient still having episodic lower GI bleed. I was told that the patient is around 4 more episodes of maroon colored bloody stool. Noted the patient got transfused with a total of 2 units of packed RBC yesterday and the s ubsequent hemoglobin was at 9 from yesterday and the repeat hemoglobin is pending from today. Otherwise, no other complaints. No nausea no vomiting. No abdominal pain. GI is on the case. General surgeries on the case. We are monitoring this GI bleed conservatively. WBC of 20.2 with a hemoglobin of 9 and a platelet count of 188. The labs shows a normal coagulation profile. I's from yesterday were all within normal limits. At times, the patient was also getting confused. He is following some simple commands. There are some intentions to consider hospice care on this patient. 11/17/2021, the patient is still having episodic maroon color stool. Hemoglobin is up from 9 and is currently down to 7.1. Hemodynamically stable. No abdominal pain. No nausea. No vomiting. No emesis. The platelet counts are stable at 301. The patient's is on and off confused. He is able to follow simple commands. He has consented for hospice and the patient is awaiting insurance authorization to be moved to the hospice home. Noted the patient is known to have metastatic adenocarcinoma of the lung. The patient is also known to have colonic diverticulosis and previous colonic mass consistent with metastatic adenocarcinoma of a lung primary and with increasing this is the source of bleeding. During this current hospitalization, the patient was transfused with a total of 5 units of packed RBC. Extremely debilitated and weak, not a candidate for any further treatment regarding lung cancer or GI bleed. On 11/18/2021 patient seen in follow-up on medical surgical floor. He states he didn't sleep all night, he complains of continuous weeping from his swollen upper arms and some mild lower back pain. Denies any difficulty breathing, patient is on room air. No evidence of ongoing GI bleeding, no bowel movements overnight according to the nursing staff. Vital signs have been stable, his been afebrile, no complaints of abdominal pain. Patient is currently awaiting transfer to the hospice facility in [place], and this is supposed to take place today. His last set of labs from yesterday showed white blood cell count of 14.1, hemoglobin of 7.1. Generally he is weak, but appears to be in no acute distress. Family is on board with hospice enrollment. Objective - Vital Signs Vital signs: Vital Signs Temp 98.1 F 11/18/21 07:33 Pulse 84 11/18/21 07:33 Resp 18 11/18/21 07:33 BP 96/57 11/18/21 07:33 Pulse Ox 99 11/18/21 07:33 FiO2 21 11/13/21 07:14 Intake & Output 11/17/21 11/18/21 11/18/21 18:59 06:59 18:59 Weight 82.4 kg Other: Voiding Method Toilet Toilet Toilet Bedside Commode Bedside Commode Bedside Commode # Voids 1 3 # Bowel Movements 1 3 - Exam GENERAL EXAM: Alert, weak, 81-year-old white male, on room air comfortable in no apparent distress. HEAD: Normocephalic/atraumatic. EYES: Normal reaction of pupils, equal size. Conjunctiva pink, sclera white. NOSE: Clear with pink turbinates. THROAT: No erythema or exudates. NECK: No masses, no JVD, no thyroid enlargement, no adenopathy. CHEST: No chest wall deformity. Symmetrical expansion. LUNGS: Equal air entry with no crackles, wheeze, rhonchi or dullness. CVS: Regular rate and rhythm, normal S1 and S2, no gallops, no murmurs, no rubs ABDOMEN: Soft, nontender. No hepatosplenomegaly, normal bowel sounds, no guarding or rigidity. EXTREMITIES: No clubbing, weeping edema in his bilateral upper extremities no cyanosis, 2+ pulses and upper and lower extremities. MUSCULOSKELETAL: Muscle strength and tone normal. SPINE: No scoliosis or deformity SKIN: No rashes CENTRAL NERVOUS SYSTEM: Alert and oriented -3. No focal deficits, tone is n ormal in all 4 extremities. PSYCHIATRIC: Alert and oriented -3. Appropriate affect. Intact judgment and insight. - Labs CBC & Chem 7: 11/17/21 05:38 11/15/21 03:00 Labs: Microbiology - Last 24 Hours (Table) 11/11/21 10:35 Blood Culture - Final Blood No Growth after 144 hours 11/11/21 10:24 Blood Culture - Final Blood No Growth after 144 hours Assessment and Plan Plan: Assessment: 1 lower GI bleeding. The patient is having ongoing lower GI bleed and the pat ient came in to the ICU with a hemoglobin of 6.7 and the patient received an additional 2 units of packed RBC and the total amount of packed RBC given to him during this current admission is a total of 5 units. Normal coagulation profile. Normal platelet counts. The patient underwent a colonoscopy on 10/04/2021 and he has a metastatic colonic mass in the cecum which is thought to be the source of bleed . The patient continues to have on and off bleeding and hemoglobin is up to 7.1. No plans for coronary intervention. Patient /family has consented for hospice care and the patient is awaiting transfer to the hospice house. 2 Severe Anemia , hemoglobin is down to 7.1 3 metastatic adenocarcinoma of the lung, biopsy confirmed with a fine-needle aspirate of the chest wall mass currently being considered for Keytruda/immunotherapy for metastatic adenocarcinoma of the lung 3 Remote 25 year history of smoking. 4 generalized weakness, severe debility, frequent falls, all related to metastatic lung cancer in addition to comorbidities stated above. 5 History of hypertension. 6 History of anxiety. 7 Hyperlipidemia. 8 Poor historian. 9 Tooth abscess currently on Unasyn Plan: Awaiting transfer to hospice facility today CODE STATUS is DO NOT RESUSCITATE Patient and the family want no further aggressive medical treatment or invasive intervention Maintain pain control and comfort Pulmonary/Critical Care will sign off I have personally seen and examined the patient, performed the documentation and the assessment and plan as written. Number of minutes spent on the visit: [10] I have personally seen and examined the patient and reviewed the documentation. I performed a joint evaluation with the nurse practitioner in this evaluation was done more than 10 minutes. I fully agree with the documentation above and the plan of care. Pulmonary and critical care services will sign off the case. The rest as above. Time with Patient: Less than 30
--- NOTE | 2021-11-18 14:43 | P.PN ---
Subjective Progress Note Date: 11/18/21 Principal diagnosis: GIB 80-year-old male patient got transferred to the intensive care unit for possible GI bleed and anemia. The patient has metastatic adenocarcinoma of the lung. The patient is also known to have COPD, hypertension and hyperlipidemia. The patient had a mass in the right upper lobe with a masslike consolidation and the patient also had right hilar lymphadenopathy and soft tissue mass within the right carotid KG involving the second and the third and the patient had a soft tissue nodule/mass in the posterior right scapula. The CT of the chest showed a 34 x 26 x 40 mm mass in the anterior pectoralis area on the right and the patient had a 12 mm right scapular mass and the right upper lobe mass. Biopsy of the scapular mass with systemic adenocarcinoma of lung primary. CAT scan of the abdomen and pelvis showed 2 masses in the cecum and colonoscopy was done on 09/30/2021 showing adenocarcinoma of a lung primary. The masses were 30 mm and 23 mm in size and the cecum. The patient had a PPD on 1 positive in the order of 80-90% and based on that the patient was started on Keytruda /immunotherapy. During this current admission, he was found to have a dental abscess. He was started on antibiotics accordingly. His hemoglobin was low and it went as low as 5.9 and he received packed RBC transfusion and during this current admission the patient has associated total of 5 units of packed RBCs. Surgical consultation has been obtained and GI consultation has also been obtained. The colonoscopy on 10/04/21 showed a lobulated mass at the base of the cecum with some old blood present there. Biopsies of the cecal mass took place. The patient is not a surgical candidate. He continues to have significant rectal bleeding and had received total of 5 units during this current admission. 11/16 Spoke to the patient's daughter, Jennifer, via telephone. Explained palliative care and hospice philosophies. She stated the family met in the patient's room at the hospital yesterday to discuss his medical condition. Education was provi ded regarding patient's cancer and prognosis. The daughter stated the family already agreed that the patient should go to a hospice house. They would like to make sure he is comfortable and not suffering for whatever time he has remaining. His is unable to care for him at home anymore. She also stated that they discussed code status and would like to make him a DNR. Jennifer is not the DPOA. Spoke with the patient's , Marleny, via telephone. She gave permission to change the patient's code status to DNR. She also confirmed that the family agreed on hospice. She stated she would prefer [facility]. Spoke with patient. He is pleasantly confused. He seemed surprised when we discussed his poor prognosis. He agreed that he can not go home, however he is very worried about hospice services not being covered by his insurance. His main concern is that his is taken care of financially once he passes. 11/17 Patient resting in bed and appears anxious. Emotional support provided. He is talkative and seems a bit more confused then yesterday. Hgb 7.1 today. Vitals stable. Social work contacted [facility] liaison. The plan is transfer the patient to a hospice hoe in the next 24-48 hours pending financial arrangements. The patient will be transferred to a med/surg unit in the meantime. Objective - Vital Signs Vital signs: Vital Signs Temp 98.1 F 11/18/21 07:33 Pulse 84 11/18/21 07:33 Resp 18 11/18/21 07:33 BP 96/57 11/18/21 07:33 Pulse Ox 99 11/18/21 07:33 FiO2 21 11/13/21 07:14 Intake & Output 11/17/21 11/18/21 11/18/21 18:59 06:59 18:59 Weight 82.4 kg Other: Voiding Method Toilet Toilet Toilet Bedside Commode Bedside Commode Bedside Commode # Voids 1 3 # Bowel Movements 1 3 - Exam General: Patient awake alert and oriented x 2, to person and place. No acute distress. HEENT: Head is atraumatic, normocephalic Neck is supple. Sclerae are clear. Pupils equal, round and reactive to light bilaterally. CV: Heart regular in rate and rhythm positive S1 and S2. No S3. No S4. No clicks, rubs or murmurs. No JVD. Peripheral pulses equal. 2/4 Lungs: Diminished bilateral bases. No wheezes rales or rhonchi. Respirations even and nonlabored. No intercostal retractions. On RA Abdomen/GI: Soft. Bowel sounds present in all 4 quadrants. Bowel sounds normoactive. Mild abdominal tenderness Musculoskeletal/ Extremities: No tenderness on muscular exam. . + generalized weakness Vascular: Radial pulses equal. 2/4. + weeping peripheral edema - improved Skin: Pale, No rash. Multiple scabs on b/l upper exremities Neurologic: Awake, alert and oriented times 2. + Confusion and forgetfulness Psychiatric: Anxious. - Labs CBC & Chem 7: 11/17/21 05:38 11/15/21 03:00 Labs: Microbiology - Last 24 Hours (Table) 11/11/21 10:35 Blood Culture - Final Blood No Growth after 144 hours 11/11/21 10:24 Blood Culture - Final Blood No Growth after 144 hours Assessment and Plan Assessment: ymptoms * Pain - 0/10 * Fatigue - yes * SOB - no, continue symbicort, on RA * Insomnia - did not sleep well last night, continue melatonin * N/V - none * Anxiety - yes, continue xanax TID * Depression - no * Confusion - yes * Agitation - no * Hallucinations - none * Appetite/weight loss - good appetite, no changes, no recent weight loss. * Dysphagia - denies, however he is on a Dysphagia I, pureed diet * Constipation - none, LBM 5/25x 3 - maroon in color * Incontinence - yes * Itch - none Plan: Summary/Goals - Patient resting in bed. He is complaining about his weeping edematous arms. He is mildly anxious. Vitals are stable, last Hgb yesterday was 7.1. No signs of active bleeding. Maroon BM's x 3 yesterday, but none overnight. [facility] is working with the patient's , however more financial information is needed. They stated they would hold a bed for him, but they would not be able to admit him today. Recommendations - Discharge to [facility] tomorrow Advanced Directives - none Code Status - Spoke to patient's , Marleny, and changed code status to DNR Thank you for this consult Lin Vivas [facility]- Palliative Care Spectralink [id number] Email: [email or web address] Time with Patient: Less than 30
--- NOTE | 2021-11-18 20:30 | PN ---
PROGRESS NOTE DATE OF SERVICE: 11/17/2021 CHIEF COMPLAINT: Adenocarcinoma of the lung and colon cancer as well as GI bleeding and blood-loss anemia. HISTORY OF PRESENT ILLNESS: This gentleman continues to deteriorate. It looks as though he may be going to hospice. He continues to have maroon-colored stools on and off. PHYSICAL EXAMINATION: He remains pale. He is lethargic. Breath sounds are heard bilaterally and there are occasional rales. Cardiac exam sounds normal. Abdomen is soft, nontender. IMPRESSION: 1. Gastrointestinal bleed from adenocarcinoma of the colon. 2. Blood-loss anemia. 3. Adenocarcinoma of the lung. 4. Delirium. PLAN: We are still trying to set up some type of a discharge plan for this patient. MMODL / IJN: [id number] /
--- NOTE | 2021-11-18 20:36 | PN ---
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 HISTORY OF PRESENT ILLNESS: This gentleman is very weak and lethargic and minimally responsive now. He is apparently going to hospice today. PHYSICAL EXAMINATION: He is pale. Breath sounds are heard bilaterally. Cardiac exam is normal. Abdomen is soft. He is barely arousable. IMPRESSION: 1. Adenocarcinoma of the lung. 2. Carcinoma of the colon. 3. Blood-loss anemia. 4. Delirium. PLAN: He will be going to hospice today. MMODL / ASMITA: [id number] /
[2021-11-18] MEDS: ALPRAZolam 0.5 MG TAB PO SCH (21:54)
[2021-11-18] MEDS ORDERED: MORPHINE CONC SOLN 10mg/0.5mL ORAL SYRG PO SCH ×2 (22:00→23:58)
[2021-11-18] MEDS ORDERED: ALPRAZolam 1 MG TAB PO SCH (22:00)
[2021-11-19] MEDS: MORPHINE CONC SOLN 10mg/0.5mL ORAL SYRG PO SCH ×3 (02:19→11:53)
[2021-11-19 04:02] VITALS: RESP 20
[2021-11-19] MEDS: SODIUM CHLORIDE 0.9% 1,000 ML IV SCH (04:54)
[2021-11-19 05:38] VITALS: BP 100/43; PULSE 93; TEMP 97.6
[2021-11-19] MEDS: PANTOPRAZOLE 40 MG TABLET PO SCH (07:54)
[2021-11-19] MEDS: FOLIC ACID 1 MG TAB PO SCH (07:54)
[2021-11-19] MEDS: carvediloL 12.5 MG TAB PO SCH (07:54)
[2021-11-19] MEDS: CHLORHEXIDINE GLUCONATE 15 ML CUP MUCOUS MEM SCH (07:54)
[2021-11-19] MEDS: PRIMIDONE 50 MG TAB PO SCH (07:54)
[2021-11-19] MEDS: ALPRAZolam 0.5 MG TAB PO SCH (07:54)
[2021-11-19] MEDS: SYMBICORT 160-4.5 MCG INHALER INHALATION SCH (08:45)
--- NOTE | 2021-11-19 11:01 | P.PN ---
Subjective Progress Note Date: 11/19/21 Principal diagnosis: GIB 80-year-old male patient got transferred to the intensive care unit for possible GI bleed and anemia. The patient has metastatic adenocarcinoma of the lung. The patient is also known to have COPD, hypertension and hyperlipidemia. The patient had a mass in the right upper lobe with a masslike consolidation and the patient also had right hilar lymphadenopathy and soft tissue mass within the right carotid KG involving the second and the third and the patient had a soft tissue nodule/mass in the posterior right scapula. The CT of the chest showed a 34 x 26 x 40 mm mass in the anterior pectoralis area on the right and the patient had a 12 mm right scapular mass and the right upper lobe mass. Biopsy of the scapular mass with systemic adenocarcinoma of lung primary. CAT scan of the abdomen and pelvis showed 2 masses in the cecum and colonoscopy was done on 09/30/2021 showing adenocarcinoma of a lung primary. The masses were 30 mm and 23 mm in size and the cecum. The patient had a PPD on 1 positive in the order of 80-90% and based on that the patient was started on Keytruda /immunotherapy. During this current admission, he was found to have a dental abscess. He was started on antibiotics accordingly. His hemoglobin was low and it went as low as 5.9 and he received packed RBC transfusion and during this current admission the patient has associated total of 5 units of packed RBCs. Surgical consultation has been obtained and GI consultation has also been obtained. The colonoscopy on 10/04/21 showed a lobulated mass at the base of the cecum with some old blood present there. Biopsies of the cecal mass took place. The patient is not a surgical candidate. He continues to have significant rectal bleeding and had received total of 5 units during this current admission. 11/16 Spoke to the patient's daughter, Jennifer, via telephone. Explained palliative care and hospice philosophies. She stated the family met in the patient's room at the hospital yesterday to discuss his medical condition. Education was provi ded regarding patient's cancer and prognosis. The daughter stated the family already agreed that the patient should go to a hospice house. They would like to make sure he is comfortable and not suffering for whatever time he has remaining. His is unable to care for him at home anymore. She also stated that they discussed code status and would like to make him a DNR. Jennifer is not the DPOA. Spoke with the patient's , Marleny, via telephone. She gave permission to change the patient's code status to DNR. She also confirmed that the family agreed on hospice. She stated she would prefer [facility]. Spoke with patient. He is pleasantly confused. He seemed surprised when we discussed his poor prognosis. He agreed that he can not go home, however he is very worried about hospice services not being covered by his insurance. His main concern is that his is taken care of financially once he passes. 11/17 Patient resting in bed and appears anxious. Emotional support provided. He is talkative and seems a bit more confused then yesterday. Hgb 7.1 today. Vitals stable. Social work contacted [facility] liaison. The plan is transfer the patient to a hospice hoe in the next 24-48 hours pending financial arrangements. The patient will be transferred to a med/surg unit in the meantime. 11/18 Patient resting in bed. He is complaining about his weeping edematous arms. He is mildly anxious. Vitals are stable, last Hgb yesterday was 7.1. No signs of active bleeding. Maroon BM's x 3 yesterday, but none overnight. [facility] is working with the patient's , however more financial information is needed. They stated they would hold a bed for him, but they would not be able to admit him today. Objective - Vital Signs Vital signs: Vital Signs Temp 97.6 F 11/19/21 05:37 Pulse 93 11/19/21 05:37 Resp 20 11/19/21 05:37 BP 100/43 11/19/21 05:37 Pulse Ox 99 11/19/21 05:37 FiO2 21 11/13/21 07:14 Intake & Output 11/18/21 11/19/21 11/19/21 18:59 06:59 18:59 Intake Total 296 Balance 296 Intake: Oral 296 Other: Voiding Method Toilet Toilet Bedside Commode Bedside Commode # Voids 3 3 # Bowel Movements 1 - Exam General: Patient awake alert and oriented x 2, to person and place. No acute distress. HEENT: Head is atraumatic, normocephalic Neck is supple. Sclerae are clear. Pupils equal, round and reactive to light bilaterally. CV: Heart regular in rate and rhythm positive S1 and S2. No S3. No S4. No clicks, rubs or murmurs. No JVD. Peripheral pulses equal. 2/4 Lungs: Diminished bilateral bases. No wheezes rales or rhonchi. Respirations even and nonlabored. No intercostal retractions. On RA Abdomen/GI: Soft. Bowel sounds present in all 4 quadrants. Bowel sounds normoactive. Mild abdominal tenderness Musculoskeletal/ Extremities: No tenderness on muscular exam. . + generalized weakness Vascular: Radial pulses equal. 2/4. + weeping peripheral edema - improved Skin: Pale, No rash. Multiple scabs on b/l upper exremities Neurologic: MIRZA, Awake, alert and oriented times 2. + Confusion and forgetfulness Psychiatric: Anxious at times. - Labs CBC & Chem 7: 11/17/21 05:38 11/15/21 03:00 Assessment and Plan Assessment: ymptoms * Pain - 0/10 * Fatigue - yes * SOB - no, continue symbicort, on RA * Insomnia -no, continue melatonin * N/V - none * Anxiety - yes, continue xanax TID * Depression - no * Confusion - yes * Agitation - no * Hallucinations - none * Appetite/weight loss - good appetite, no changes, no recent weight loss. * Dysphagia - denies, however he is on a Dysphagia I, pureed diet * Constipation - none, LBM 5/26 * Incontinence - yes at times * Itch - none Plan: Summary/Goals - Patient sitting up on the side of the bed. He denies any pain. He states his weeping edema has improved significantly. He is pleasantly a little more confused today. The plan is to discharge patient to [facility] today. Advanced Directives - none Code Status - Spoke to patient's , Marleny, and changed code status to DNR Thank you for this consult Lin Vivas [facility]- Palliative Care Spectralink [id number] Email: [email or web address] Time with Patient: Less than 30
--- NOTE | 2021-11-19 16:00 | DS ---
DISCHARGE SUMMARY CHIEF COMPLAINT: Weakness, shortness of breath, failure to thrive, falling and blood-loss anemia. HISTORY OF PRESENT ILLNESS AND PHYSICAL EXAMINATION: Details of this man's history and physical can be found in his admitting summary. LABORATORY STUDIES: While he was in the hospital he had laboratory studies, details of which can be found in the laboratory section of his chart. COURSE IN THE HOSPITAL: After admission he was placed on bedrest and was transfused. He was being treated general largely for chronic blood-loss anemia, adenocarcinoma of the right colon and adenocarcinoma of the lung. His course in the hospital was complicated by the fact that we could not arrange a satisfactory discharge plan for the patient. He had been sent home on hospice, but his turned him right around and sent him back to the hospital. She is very frail, poorly motivated and could not take care of him. The family could not afford the cost of room and board and hospice or a halfway. When he had gone home on hospice, his then took him out of hospice. He has two stepdaughters who were trying to provide some help, but they were somewhat distant in their cooperative abilities. Finally it was decided that he would be discharged on hospice, and this was to be arranged on November 19. Toward the end of his hospitalization, he became progressively weak, confused and lethargic. His life expectancy is poor. FINAL DIAGNOSIS: 1. Adenocarcinoma of the lung. 2. Adenocarcinoma of the colon. 3. Blood-loss anemia. 4. Delirium. OPERATIONS: None. CONSULTATIONS: 1. Intensive Medicine. 2. Oncology. MMSILVIA / ASMITA: [id number] /
--- NOTE | 2021-11-25 11:28 | MISC ---
MISCELLANOUS REPORT QUERY: Other condition: Carcinoma of the lung and colon. MMODL / IJN: [id number] /
== END 2021-11-19 14:06 | disposition still patient (30) | DRG 375 ==
LOC: EC 01:12 → 3SCARD 06:52 → 2SICU 19:17 → 4SSUR 11-12 17:10 → 2SICU 11-14 21:22 → 4SSUR 11-17 16:01
PROVIDERS: ADMIT Family Medicine; ATTEND Family Medicine
PROC: 30233N1 Transfusion of Nonautologous Red Blood Cells into Peripheral Vein, Percutaneous Approach (ICD-10-PCS; principal; 2021-11-09)
DX: C18.2 Malignant neoplasm of ascending colon (principal); C34.90 Malignant neoplasm of unspecified part of unspecified bronchus or lung; C78.00 Secondary malignant neoplasm of unspecified lung; D62 Acute posthemorrhagic anemia; E44.0 Moderate protein-calorie malnutrition; E87.1 Hypo-osmolality and hyponatremia; D63.8 Anemia in other chronic diseases classified elsewhere; D72.829 Elevated white blood cell count, unspecified; E78.5 Hyperlipidemia, unspecified; E86.0 Dehydration; E86.1 Hypovolemia; E88.09 Other disorders of plasma-protein metabolism, not elsewhere classified; F03.90 Unspecified dementia, unspecified severity, without behavioral disturbance, psychotic disturbance, mood disturbance, and anxiety; F41.9 Anxiety disorder, unspecified; G47.00 Insomnia, unspecified; I10 Essential (primary) hypertension; J44.9 Chronic obstructive pulmonary disease, unspecified; K04.7 Periapical abscess without sinus; R62.7 Adult failure to thrive; K44.9 Diaphragmatic hernia without obstruction or gangrene; I95.9 Hypotension, unspecified; Z20.822 Contact with and (suspected) exposure to COVID-19; K57.30 Diverticulosis of large intestine without perforation or abscess without bleeding; R13.10 Dysphagia, unspecified; Z66 Do not resuscitate; R45.1 Restlessness and agitation; Z51.5 Encounter for palliative care; R29.6 Repeated falls; R32 Unspecified urinary incontinence; W19.XXXA Unspecified fall, initial encounter; Y92.009 Unspecified place in unspecified non-institutional (private) residence as the place of occurrence of the external cause; Z78.1 Physical restraint status; Z79.51 Long term (current) use of inhaled steroids; Z79.899 Other long term (current) drug therapy; Z85.038 Personal history of other malignant neoplasm of large intestine; Z85.118 Personal history of other malignant neoplasm of bronchus and lung; Z85.828 Personal history of other malignant neoplasm of skin; Z87.891 Personal history of nicotine dependence; Z86.010 Personal history of colon polyps
CPT/HCPCS: 36415; 71046; 80048; 80053; 80061; 81003; 82378; 82607; 82728; 82746; 83540; 83550; 83605; 83615; 83735; 83921; 84100; 84425; 84484; 85025; 85027; 85045; 85610; 85730; 86850; 86900; 86901; 86920; 87040; 87070; 87077; 87186; 87205; 87502; 87635; 93005; 94640; 99285